=== PATIENT | male | born 1975 | race Caucasian/White ===

== ENCOUNTER → 2020-07-11 09:21 | Outpatient (BNVA) | payer MEDICAID, SELFPAY | PROVIDERS: Visit Provider Nurse Practitioner | DX: F10.10 Alcohol abuse, uncomplicated (principal); K74.00 Hepatic fibrosis, unspecified | CPT/HCPCS: 99202 ==

== ENCOUNTER 2020-07-31 | Outpatient (REF) | payer MEDICAID, SELFPAY | END 2020-07-31 00:01 | LOC: CF | PROVIDERS: Visit Provider Nurse Practitioner Family | DX: K74.00 Hepatic fibrosis, unspecified (principal); M47.816 Spondylosis without myelopathy or radiculopathy, lumbar region; M16.0 Bilateral primary osteoarthritis of hip | CPT/HCPCS: 99202 ==

== ENCOUNTER 2020-08-02 09:01 | Outpatient (REF) | payer MEDICAID, SELFPAY ==
--- NOTE | 2020-08-02 11:20 | XR_ITS ---
EXAMINATION: XR BILATERAL HIPS WITH AP PELVIS CLINICAL INFORMATION: M16.0 - Bilateral primary osteoarthritis of hip COMPARISON: MR lumbar spine 02/01/2019 TECHNIQUE: AP view pelvis is performed. Each hip is imaged in AP and frog-lateral projections. There are a total of 5 views. FINDINGS: The pelvis and hip show no fracture dislocation or destructive process. There is no focal hip joint narrowing or erosive change or chondrocalcinosis. Soft tissue planes around the hips are symmetric. Bowel gas unremarkable. The SI joints and pubis are unremarkable. XR/XR hips JOSÉ LUIS min 3V IMPRESSION: Unremarkable pelvis and hips.
== END 2020-08-02 09:02 | disposition home or self-care (01) ==
LOC: HO.XRAY 09:01
PROVIDERS: PCP Internal Medicine; Visit Provider Orthopaedic Surgery
DX: M16.0 Bilateral primary osteoarthritis of hip (principal)
CPT/HCPCS: 73522; 99202

== ENCOUNTER 2020-08-31 11:27 | Outpatient (REF) | payer MEDICAID, SELFPAY ==
[2020-08-31 12:03] LABS: MANUAL DIFF FLAG NO
[2020-08-31 12:10] LABS: Basophils Absolute Auto 0.1 X10*3/uL (0.0-0.2); Basophils Percent Auto 0.8 % (0-2); Eosinophils Absolute Auto 0.1 X10*3/uL (0.0-0.4); Eosinophils Percent Auto 1.6 % (0-4); Hematocrit 48.8 % (42-52); Hemoglobin 16.4 g/dl (14.0-18.0); Imm Gran Abs Auto 0.02 X10*3/uL (0.00-0.03); Imm Gran Pct Auto 0.3 % (0.0-0.4); Lymphocytes Absolute Auto 1.9 X10*3/uL (1.2-4.9); Lymphocytes Percent Auto 29.9 % (20-40); Mean Corpuscular HGB Conc 33.6 g/dl (31.0-36.0); Mean Corpuscular Hemoglobin 30.3 pg (27.0-33.0); Mean Corpuscular Volume 90.2 fL (80-98); Mean Platelet Volume 9.8 fL (9.4-12.4); Monocytes Absolute Auto 0.6 X10*3/uL (0.1-1.2); Monocytes Percent Auto 9.5 % (2-11); Neutrophils Absolute Auto 3.6 X10*3/uL (2.0-8.3); Neutrophils Percent Auto 57.9 % (45-73); Platelet Count 226 X10*3/uL (160-400); Red Blood Count 5.41 X10*6/uL (4.60-5.80); Red Cell Distribution Width 12.8 % (11.0-16.0); White Blood Count 6.2 X10*3/uL (4.8-10.8)
[2020-08-31 12:38] LABS: Alanine Aminotransferase 58 U/L (0-40); Albumin Level 4.5 g/dL (3.5-5.0); Alkaline Phosphatase 98 U/L (39-117); Aspartate Amino Transferase 48 U/L (5-37); Bilirubin Direct 0.4 mg/dL (0.0-0.5); Bilirubin Total 0.8 mg/dL (0.0-1.0); Gamma Glutamyl Transpeptidase 326 U/L (11-51); Total Protein 7.5 g/dL (6.5-8.0)
[2020-08-31 12:59] LABS: Ferritin 233 ng/mL (20-250)
[2020-09-01 11:47] LABS: Alpha Fetoprotein 4.2 ng/mL (<6.1)
[2020-09-04 15:13] LABS: Mitochondrial Antibodies NEGATIVE (NEGATIVE)
[2020-09-05 13:07] LABS: Smooth Muscle Antibody <20 U (<20)
== END 2020-08-31 11:28 | disposition home or self-care (01) ==
LOC: HO.LAB 11:27
PROVIDERS: PCP Internal Medicine; Visit Provider Nurse Practitioner
DX: F10.10 Alcohol abuse, uncomplicated (principal); K74.00 Hepatic fibrosis, unspecified
CPT/HCPCS: 36415; 80076; 82105; 82728; 82977; 85025; 86255; 86256

== ENCOUNTER 2020-09-04 08:49 | Outpatient (REF) | payer MEDICAID, SELFPAY ==
--- NOTE | 2020-09-04 08:51 | US_ITS ---
EXAMINATION: US ABDOMEN LIMITED CLINICAL INFORMATION: Hepatic fibrosis. COMPARISON: Abdominal ultrasounds dated 07/23/2019 and 07/07/2019 TECHNIQUE: Real-time imaging of the right upper quadrant abdominal viscera. FINDINGS: PANCREAS: The pancreas is homogeneous echotexture and normal size. LIVER: The liver is normal in size. The liver contour is normal. There is diffuse increased liver echogenicity. No focal hepatic lesion. There is no intrahepatic biliary duct dilatation seen. GALLBLADDER: Normal. The gallbladder is physiologically distended without evidence of stones, sludge, polyps, wall thickening or pericholecystic fluid. COMMON BILE DUCT: Normal in caliber measuring 0.4 cm in diameter. RIGHT KIDNEY: No hydronephrosis. No renal calculi or focal parenchymal lesions. The kidney measures 10.5 cm in maximum dimension. There are multiple echogenic non shadowing foci are seen likely vascular calcifications. FREE FLUID: None US/US abdomen limited IMPRESSION: Diffuse increase in hepatic echogenicity likely fatty infiltration. Similar findings were seen on the previous ultrasound 07/25/2019. Pancreas, gallbladder and series unremarkable. There are echogenic calcifications, likely vascular seen scattered in the right kidney.
== END 2020-09-04 08:50 | disposition home or self-care (01) ==
LOC: HO.US 08:49
PROVIDERS: Visit Provider Nurse Practitioner
DX: K74.00 Hepatic fibrosis, unspecified (principal); F10.10 Alcohol abuse, uncomplicated
CPT/HCPCS: 76705

== ENCOUNTER → 2020-09-11 15:32 | Outpatient (BNVA) | payer MEDICAID, SELFPAY | PROVIDERS: PCP Internal Medicine; Referring Provider Internal Medicine; Visit Provider Nurse Practitioner ==

== ENCOUNTER → 2020-09-15 12:48 | Outpatient (BNVA) | payer MEDICAID, SELFPAY | PROVIDERS: PCP Internal Medicine; Visit Provider Nurse Practitioner Family | DX: M77.8 Other enthesopathies, not elsewhere classified (principal) | CPT/HCPCS: 99212 ==

== ENCOUNTER → 2020-12-12 09:31 | Outpatient (BNVA) | payer MEDICAID, SELFPAY | PROVIDERS: Visit Provider Nurse Practitioner ==

== ENCOUNTER 2021-11-16 12:38 | Outpatient (REF) | payer MEDICAID, SELFPAY ==
--- NOTE | ~2021-11-16 | US_ITS ---
EXAMINATION: US ABDOMEN COMPLETE CLINICAL INFORMATION: Hepatic fibrosis, unspecified. COMPARISON: Ultrasound abdomen limited 09/04/2020 and 07/23/2019. TECHNIQUE: Real-time imaging of the abdominal viscera. FINDINGS: PANCREAS: Not well visualized due to bowel gas ABDOMINAL AORTA: The proximal, mid, and distal segments are normal in caliber. INFERIOR VENA CAVA: Visualized portions are normal. LIVER: The liver is normal in size. The liver contour is normal. Liver echotexture is increased. No focal hepatic lesion. There is no intrahepatic biliary duct dilatation seen. GALLBLADDER: Normal. The gallbladder is physiologically distended without evidence of stones, sludge, polyps, wall thickening or pericholecystic fluid. COMMON BILE DUCT: Normal in caliber measuring 0.2 cm in diameter. RIGHT KIDNEY: Normal. No hydronephrosis. No renal calculi or focal parenchymal lesions. The kidney measures 10.7 cm in maximum dimension. LEFT KIDNEY: Normal. No hydronephrosis. No renal calculi or focal parenchymal lesions. The kidney measures 11.0 cm in maximum dimension. SPLEEN: Normal. The spleen measures 11.5 cm in maximum dimension. FREE FLUID: None. US/US abdomen complete IMPRESSION: Echogenic liver. Limited visualization of the pancreas.
== END 2021-11-16 12:39 | disposition home or self-care (01) ==
LOC: HO.US 12:38
PROVIDERS: Visit Provider Nurse Practitioner
DX: K74.00 Hepatic fibrosis, unspecified (principal); F10.10 Alcohol abuse, uncomplicated
CPT/HCPCS: 76700

== ENCOUNTER → 2021-12-10 12:41 | Outpatient (REF) | payer MEDICAID, SELFPAY ==
--- NOTE | 2021-12-10 12:45 | ECG_ITS ---
Hook-up date: 2021-12-10 12:03:00 Duration: 24:51:00 Test Indications: PALPITATIONS Medications: [id number] QRS complexes 177 Ventricular ectopics which represent <1 % of total QRS comp. 7 Supraventricular ectopics which represent <1 % of total QRS comp. * Paced QRS complexs which represent % of total QRS comp. VENTRICULAR ECTOPY 177 Isolated 0 Bigeminal Cycles 0 Couplets 0 Runs 0 Beats in Runs * Beats LONGEST at * BPM at :: -- * Beats FASTEST at * BPM at :: -- SUPRAVENTRICULAR ECTOPY 7 Isolated 0 Couplets 0 Runs 0 Beats in Runs * Beats LONGEST at * BPM at :: -- * Beats FASTEST at * BPM at :: -- HEART RATES 60 MIN at 00:25:05 2021-12-11 85 AVG 133 MAX at 18:45:25 2021-12-10 LONGEST RR 1.1680 secs at 04:02:57 2021-12-11 S-T LEVELS Channel 1 - 128 mm at 12:03:00 2021-12-10 - 128 mm at 12:03:00 2021-12-10 Channel 2 - 128 mm at 12:03:00 2021-12-10 - 128 mm at 12:03:00 2021-12-10 Channel 3 - 128 mm at 03:12:21 -- - 128 mm at 03:12:21 Underlying rhythm is sinus; Average ventricular rate 85/min; 60-133/min; Rare Premature ventricular complexes ; isolated; No sustained arrhythmias; Patient did not report any symptoms in the diary Referred By: Gris Pang Overread By: MIC DE LA CRUZ
== END ==
LOC: HO.CARD 12:41
PROVIDERS: Visit Provider Nurse Practitioner Primary Care
DX: R00.2 Palpitations (principal)
CPT/HCPCS: 93226

== ENCOUNTER 2021-12-21 08:49 | Outpatient (REF) | payer MEDICAID, SELFPAY ==
[2021-12-21 10:45] LABS: MANUAL DIFF FLAG NO
[2021-12-21 10:57] LABS: Basophils Absolute Auto 0.1 X10*3/uL (0.0-0.2); Basophils Percent Auto 1.1 % (0-2); Eosinophils Absolute Auto 0.1 X10*3/uL (0.0-0.4); Eosinophils Percent Auto 1.5 % (0-4); Hematocrit 48.5 % (42.0-52.0); Hemoglobin 16.3 g/dl (14.0-18.0); Imm Gran Abs Auto 0.03 X10*3/uL (0.00-0.03); Imm Gran Pct Auto 0.5 % (0.0-0.4); Lymphocytes Absolute Auto 1.7 X10*3/uL (1.2-4.9); Lymphocytes Percent Auto 27.4 % (20-40); Mean Corpuscular HGB Conc 33.6 g/dl (31.0-36.0); Mean Corpuscular Hemoglobin 29.3 pg (27.0-33.0); Mean Corpuscular Volume 87.2 fL (80.0-98.0); Mean Platelet Volume 9.6 fL (9.4-12.4); Monocytes Absolute Auto 0.6 X10*3/uL (0.1-1.2); Monocytes Percent Auto 9.8 % (2-11); Neutrophils Absolute Auto 3.7 x10*3/uL (2.0-8.3); Neutrophils Percent Auto 59.7 % (45-73); Platelet Count 268 X10*3/uL (160-400); Red Blood Count 5.56 X10*6/uL (4.60-5.80); White Blood Count 6.1 X10*3/uL (4.8-10.8)
[2021-12-21 11:18] LABS: C Reactive Protein 1.32 mg/dL (< or = 0.50)
[2021-12-21 11:42] LABS: TSH reflex Free T4 0.83 uIU/mL (0.32-4.0)
[2021-12-25 23:02] LABS: Gliadin Deamidated IgA Ab <1.0 U/mL; Gliadin Deamidated IgG Ab <1.0 U/mL; Transglutaminase Ab IgG <1.0 U/mL; Transglutaminase IgA <1.0 U/mL
[2021-12-26 11:10] LABS: Alpha Fetoprotein 3.9 ng/mL (<6.1)
== END 2021-12-21 08:50 | disposition home or self-care (01) ==
LOC: HO.LAB 08:49
PROVIDERS: PCP Nurse Practitioner Primary Care; Referring Provider Nurse Practitioner Primary Care; Visit Provider Nurse Practitioner
DX: K74.00 Hepatic fibrosis, unspecified (principal); R19.7 Diarrhea, unspecified; R10.12 Left upper quadrant pain; I10 Essential (primary) hypertension
CPT/HCPCS: 36415; 82105; 84443; 85025; 86003; 86140; 86258; 86364; 99212

== ENCOUNTER 2022-01-01 11:16 | Outpatient (REF) | payer MEDICAID, SELFPAY ==
[2022-01-09 15:40] LABS: Pancreatic Elastase-1 27 mcg/g
== END 2022-01-01 11:17 | disposition home or self-care (01) ==
LOC: HO.LNP 11:16
PROVIDERS: Visit Provider Nurse Practitioner
DX: R19.7 Diarrhea, unspecified (principal)
CPT/HCPCS: 82656

== ENCOUNTER → 2022-01-18 09:06 | Outpatient (BNVA) | payer MEDICAID, SELFPAY | PROVIDERS: PCP Nurse Practitioner Primary Care; Visit Provider Nurse Practitioner | DX: K86.89 Other specified diseases of pancreas (principal); F10.10 Alcohol abuse, uncomplicated; R19.7 Diarrhea, unspecified; K74.00 Hepatic fibrosis, unspecified; K21.9 Gastro-esophageal reflux disease without esophagitis | CPT/HCPCS: 99212 ==

== ENCOUNTER → 2022-03-12 08:49 | Outpatient (BNVA) | payer MEDICAID, SELFPAY | PROVIDERS: PCP Nurse Practitioner Primary Care; Referring Provider Nurse Practitioner Primary Care; Visit Provider Internal Medicine | DX: I49.3 Ventricular premature depolarization (principal); I10 Essential (primary) hypertension; F10.10 Alcohol abuse, uncomplicated | CPT/HCPCS: 93005; 99202 ==

== ENCOUNTER 2022-10-17 08:16 | Outpatient (REF) | payer MEDICAID, SELFPAY ==
--- NOTE | ~2022-10-17 | XR_ITS ---
EXAMINATION: XR SHOULDER, RIGHT CLINICAL INFORMATION: Adhesive capsulitis. COMPARISON: None TECHNIQUE: AP external rotation, Grashey, scapular Y, and axillary views of the right shoulder. FINDINGS: The bones and soft tissues are normal. No fracture. Glenohumeral and acromioclavicular alignment is anatomic with normal joint space. No abnormal soft tissue calcifications. XR/XR shoulder RT min 2V IMPRESSION: Normal right shoulder.
== END 2022-10-17 08:17 | disposition home or self-care (01) ==
LOC: HO.XRAY 08:16
PROVIDERS: PCP Nurse Practitioner Primary Care; Visit Provider Student in an Organized Health Care Education/Training Program
DX: M75.01 Adhesive capsulitis of right shoulder (principal)
CPT/HCPCS: 73030

== ENCOUNTER 2023-03-26 12:32 | Outpatient (AMB) | payer MEDICAID, SELFPAY ==
[2023-03-26 12:36] VITALS: BP 143/73; PULSE 80; BMI 35.6
--- NOTE | 2023-03-26 12:36 | MHC.OFFVIS ---
Intake Vital Signs 03/26/23 12:36 Height 5 ft 2 in Weight 194 lb 14.218 oz BMI 35.6 BP 143/73 H Blood Pressure Location Rt brachial Position Sitting Pulse 80 Intake Visit Reasons: follow req Intake Note: Patient presents to in office visit today in medications follow up. CC: Patient c/o heartburn and states he wanted to follow up with GI. Cable Tower Operator Required: Yes Cable Tower Operator Name: Tone [id number] Accompanied by: Self / Same As Patient Allergies No Known Allergies Allergy (Verified 03/12/22 09:09) HPI follow req HPI Details Assessment & Plan (1) Pancreatic insufficiency: ?Code(s): K86.89 - Other specified diseases of pancreas ?Plan: COSTA RICAN #[id number] saroj I review all of the results and tell him that he appears to have exocrine pancreatic insufficiency.? I explained that this means is pancreas isn't making enough of the enzymes to digest is food appropriately and this is contributing to his bloating gas and diarrhea.? I will put him on a trial of Creon and I described to him how to take this medication and wanted stool or.? Happily, he has also had some good control of his symptoms with the dicyclomine which we will continue to provide for him although he may find that he leak needs it less often with use of the Creon.? He did have an elevated CRP but unless he has control becomes questionable is profile does not fit well with a diagnosis of inflammatory bowel disease.? He has no weight loss and no severe bleeding or rectal pain.? It also would be very uncommon for IBD to be well controlled utilizing dicyclomine.? He certainly does not have any significant food allergies. ROV 8 weeks (2) Liver fibrosis: ?Comment: Hemoglobin A1c 5.4 Hepatitis A IgM Ab NONREACTIVE Hep Bs Antigen NEGATIVE Hep Bs Antibody NONREACTIVE Hep B Core Total Ab NONREACTIVE Hepatitis C Ab (EIA) NONREACTIVE 07/09/19 Est GFR (Non-Af Amer) > 60 Liver Fibrosis Stage F0 Tumor Marker AFP 3.5 Ferritin 233 Total Bilirubin 0.8 Direct Bilirubin 0.4 GGT 326 H AST 48 H ALT 58 H Alkaline Phosphatase 98 Alpha Fetoprotein 4.2 Anti-Mitochondrial Ab NEGATIVE * 08/31/20 Plt Count 226 Est GFR (Non-Af Amer) Hemoglobin A1c Ferritin 233 Total Bilirubin 0.8 Direct Bilirubin 0.4 GGT 326 H AST 48 H ALT 58 H Alkaline Phosphatase 98 Alpha Fetoprotein 4.2 Anti-Mitochondrial Ab NEGATIVE ULTRASOUND OF THE ABDOMEN 08/2020 IMPRESSION: Diffuse increase in hepatic echogenicity likely fatty infiltration. Similar findings were seen on the previous ultrasound 07/25/2019. ? Pancreas, gallbladder and series unremarkable. ? There are echogenic calcifications, likely vascular seen scattered in the right kidney. ?Code(s): K74.00 - Hepatic fibrosis, unspecified (3) ETOH abuse: ?Code(s): F10.10 - Alcohol abuse, uncomplicated (4) Diarrhea: ?Code(s): R19.7 - Diarrhea, unspecified (5) GERD (gastroesophageal reflux disease): ?Code(s): K21.9 - Gastro-esophageal reflux disease without esophagitis ? ? ? Medications: New ehtazn-jqwnpsbg-xr ylase 40,000-126,0 00- 168,000 unit ( [facility]) ?? adminis ter with meals and /or snacks 1 cap PO .QIDAC 1 20 caps 6RF K86.89 - Other spe cified diseases of pancreas, R19.7 - Diarrhea, unspeci fied ? Refilled dicyclomine 20 mg PO QIDACHS 120 tabs 6RF 30 da ys R19.7 - Diarrhea, unspecified ? omeprazole 40 mg PO BID 60 c aps 3RF 30 days ? TODAY'S VISIT COSTA RICAN #[id number], Tone He received the Creon and he has found it very helpful for his stooling. He also has decreased the use of the bentyl as I expected. He also continues on her omeprazole 40mg bid with good GERD control. He is now satisfied with his GI regimen. He asks me to do another MRI for my liver. We have not looked at or monitored his liver since 2020, as [facility] usually does all their own in house liver monitoring. I will get labs and an US to start as he says his PCP is not doing this. He has a hx of ETOH abuse, and I ask if he is still drinking and he says he is, but he has cut back from 18 beers a day to 6 a day. He likely has a comorbid element of TIMMONS as well. ROV after US ordered today. [facility] Medical History Hypertension Surgical History H/O colonoscopy History of esophagogastroduodenoscopy (EGD) Family History Father Heart problem Stroke HTN (hypertension) Mother HTN (hypertension) Arthritis Social History Alcohol intake: current Alcohol intake frequency: 3 or more drinks per day Alcohol type: beer Current occupational status: employed and unemployed Current occupation: right handed Review of Systems Const Denies fatigue, Denies fever(s), Denies night sweats, Denies poor appetite and Denies weight loss Eyes Details: glasses Reports requires corrective lenses ENT Reports Normal hearing present, Denies dental pain, Denies dysphagia, Denies hearing loss, Denies mouth pain, Denies odynophagia, Denies throat swelling, Denies tongue swelling and Reports other (Dentition adequate) Card Reports no additional complaints Resp Reports no additional complaints GI Denies abdominal pain, Denies melena, Reports bloating, Denies hematochezia, Denies constipation, Denies GI cramping, Denies dysphagia, Denies excessive flatus, Denies early satiety, Reports heartburn, Reports diarrhea, Denies nausea, Denies odynophagia, Denies vomiting and Denies hematemesis Skin/Breast Denies pruritus, Denies lesions, Denies rash and Denies jaundice Neuro Reports Normal hearing present and Denies Abnormal speech present Endo Denies fatigue Aller/Immun Denies throat swelling and Denies tongue swelling Physical Exam Vital Signs: Last Vital Signs Pulse 80 03/26/23 12:36 BP 143/73 H 03/26/23 12:36 BMI result Body Mass Index 35.6 Const General: cooperative, no acute distress, well developed and well groomed Nutritional Appearance: well nourished and obese centrally obese Orientation/consciousness: oriented to person, oriented to place and oriented to time Limitations: language barrier HEENT Head: Yes normocephalic and Yes atraumatic Eyes General: appearance normal, both eyes and all related structures Pupils: Equal, round and reactive pupils present Neck Neck: Yes normal visual inspection and Yes no lymphadenopathy Thyroid: Thyroid normal Resp Effort & Inspection: normal respiratory effort and able to speak in complete sentences Auscultation: clear to auscultation bilaterally Cardio Rate: regular rate Rhythm: regular rhythm Heart sounds: Normal, physiologic split S2 sound present Peripheral pulses: radial pulses present and posterior tibial pulses present GI Inspection: No distended, No Abdominal panniculus present and Yes obesity Palpation (GI): Soft to palpation, nontender, no guarding, not rigid and No hepatosplenomegaly present Percussion: Yes normal to percussion Auscultation: normal bowel sounds Rectal Exam - Male: Yes deferred Skin General skin exam: no rashes or lesions noted, turgor normal, skin not dry, no jaundice, No spider nevi and no striae Rashes: no rashes Nails: normal Neuro General: oriented to person, oriented to place and oriented to time Cranial nerves: Yes Equal, round and reactive pupils present and Yes Normal hearing present Speech: No Abnormal speech present Extrem General: Yes normal to inspection, No clubbing, No cyanosis and No edema Psych Appearance: grossly normal and well kempt Mental Status: mental status grossly normal Speech and movement: Normal speech and movement present Affect: normal affect Attitude: cooperative Thought process: Normal thought process present and not confabulating Thought content: Normal thought content present Insight: Limited insight present (Psych) Judgement: Limited judgement present (Psych) Assessment & Plan Assessment & Plan (1) Pancreatic insufficiency: Code(s): K86.89 - Other specified diseases of pancreas Plan: CO[place] RICAN #[id number], Tone He received the Creon and he has found it very helpful for his stooling. He also has decreased the use of the bentyl as I expected. He also continues on her omeprazole 40mg bid with good GERD control. He is now satisfied with his GI regimen. He asks me to do another MRI for my liver. We have not looked at or monitored his liver since 2020, as [facility] usually does all their own in house liver monitoring. I will get labs and an US to start as he says his PCP is not doing this. He has a hx of ETOH abuse, and I ask if he is still drinking and he says he is, but he has cut back from 18 beers a day to 6 a day. He likely has a comorbid element of TIMMONS as well. ROV after US ordered today. (2) GERD (gastroesophageal reflux disease): Code(s): K21.9 - Gastro-esophageal reflux disease without esophagitis (3) Diarrhea: Code(s): R19.7 - Diarrhea, unspecified (4) Liver fibrosis: Comment: Hemoglobin A1c 5.4 Hepatitis A IgM Ab NONREACTIVE Hep Bs Antigen NEGATIVE Hep Bs Antibody NONREACTIVE Hep B Core Total Ab NONREACTIVE Hepatitis C Ab (EIA) NONREACTIVE * 07/09/19 Est GFR (Non-Af Amer) > 60 Liver Fibrosis Stage F0 Tumor Marker AFP 3.5 * 08/31/20 Plt Count 226 Est GFR (Non-Af Amer) Hemoglobin A1c Ferritin 233 Total Bilirubin 0.8 Direct Bilirubin 0.4 GGT 326 H AST 48 H ALT 58 H Alkaline Phosphatase 98 Alpha Fetoprotein 4.2 Anti-Mitochondrial Ab NEGATIVE ULTRASOUND OF THE ABDOMEN 08/2020 IMPRESSION: Diffuse increase in hepatic echogenicity likely fatty infiltration. Similar findings were seen on the previous ultrasound 07/25/2019. Pancreas, gallbladder and series unremarkable. There are echogenic calcifications, likely vascular seen scattered in the right kidney. Code(s): K74.00 - Hepatic fibrosis, unspecified (5) ETOH abuse: Code(s): F10.10 - Alcohol abuse, uncomplicated Orders: Orders Alpha Fetoprotein Today F10.10 - Alcohol abuse, uncomplicated, K74.00 - Hepatic fibrosis, unspecified Comprehensive Met. Panel Today F10.10 - Alcohol abuse, uncomplicated, K74.00 - Hepatic fibrosis, unspecified Gamma Glutamyl Transpeptidase Today F10.10 - Alcohol abuse, uncomplicated, K74.00 - Hepatic fibrosis, unspecified Complete Blood Count Auto Diff Today F10.10 - Alcohol abuse, uncomplicated, K74.00 - Hepatic fibrosis, unspecified Phosphatidylethanol, Blood Today F10.10 - Alcohol abuse, uncomplicated, K74.00 - Hepatic fibrosis, unspecified US abdomen comp w elastography Today F10.10 - Alcohol abuse, uncomplicated, K74.00 - Hepatic fibrosis, unspecified Coding Level of Care Code Est Pt Level 4 (71693) Diagnoses Pancreatic insufficiency K86.89 GERD (gastroesophageal reflux disease) K21.9 Diarrhea R19.7 Liver fibrosis K74.00 ETOH abuse F10.10
== END 2023-03-26 13:59 | disposition home or self-care (01) ==
PROVIDERS: PCP Nurse Practitioner Primary Care; Visit Provider Nurse Practitioner
DX: K86.89 Other specified diseases of pancreas (principal); K21.9 Gastro-esophageal reflux disease without esophagitis; R19.7 Diarrhea, unspecified; K74.00 Hepatic fibrosis, unspecified; F10.10 Alcohol abuse, uncomplicated
CPT/HCPCS: 99214

== ENCOUNTER → 2023-03-26 12:32 | Outpatient (BNVA) | payer MEDICAID, SELFPAY | PROVIDERS: PCP Nurse Practitioner Primary Care; Visit Provider Nurse Practitioner | DX: K86.89 Other specified diseases of pancreas (principal); K21.9 Gastro-esophageal reflux disease without esophagitis; K74.00 Hepatic fibrosis, unspecified; R19.7 Diarrhea, unspecified; F10.10 Alcohol abuse, uncomplicated | CPT/HCPCS: 99214 ==

== ENCOUNTER 2023-04-12 09:15 | Outpatient (REF) | payer MEDICAID, SELFPAY ==
[2023-04-12 09:28] LABS: MANUAL DIFF FLAG NO
[2023-04-12 09:50] LABS: Basophils Percent Auto 0.6 % (0-2); Eosinophils Absolute Auto 0.1 X10*3/uL (0.0-0.4); Eosinophils Percent Auto 1.3 % (0-4); Hematocrit 44.6 % (42.0-52.0); Hemoglobin 15.2 g/dl (14.0-18.0); Imm Gran Abs Auto 0.02 X10*3/uL (0.00-0.03); Imm Gran Pct Auto 0.4 % (0.0-0.4); Lymphocytes Absolute Auto 1.7 X10*3/uL (1.2-4.9); Lymphocytes Percent Auto 35.1 % (20-40); Mean Corpuscular HGB Conc 34.1 g/dl (31.0-36.0); Mean Corpuscular Hemoglobin 29.6 pg (27.0-33.0); Mean Corpuscular Volume 86.9 fL (80.0-98.0); Mean Platelet Volume 9.5 fL (9.4-12.4); Monocytes Absolute Auto 0.4 X10*3/uL (0.1-1.2); Monocytes Percent Auto 9.1 % (2-11); Neutrophils Absolute Auto 2.5 x10*3/uL (2.0-8.3); Neutrophils Percent Auto 53.5 % (45-73); Platelet Count 229 X10*3/uL (160-400); Red Blood Count 5.13 X10*6/uL (4.60-5.80); Red Cell Distribution Width 13.1 % (11.0-16.0); White Blood Count 4.7 X10*3/uL (4.8-10.8)
[2023-04-12 10:27] LABS: Alanine Aminotransferase 40 U/L (0-40); Albumin Level 4.1 g/dL (3.5-5.0); Alkaline Phosphatase 104 U/L (39-117); Anion Gap 17 (12-20); Aspartate Amino Transferase 47 U/L (5-37); Bilirubin Total 0.3 mg/dL (0.0-1.0); Blood Urea Nitrogen 8 mg/dL (9-16); Calcium 9.1 mg/dL (8.4-10.2); Carbon Dioxide 21 mmol/L (22-29); Chloride 105 mmol/L (96-108); Estimated Glomerular Filt Rate > 60; Glucose Random 104 mg/dL (60-115); Potassium 3.6 mmol/L (3.3-5.1); Sodium 139 mmol/L (135-145); Total Protein 7.5 g/dL (6.5-8.0)
[2023-04-12 11:01] LABS: Gamma Glutamyl Transpeptidase 407 U/L (11-51)
[2023-04-21 08:31] LABS: Phosphatidylethanol 16:0-18:1 >400 (H); Phosphatidylethanol 16:0-18:2 >400 (H)
== END 2023-04-12 09:16 | disposition home or self-care (01) ==
LOC: HO.LAB 09:15
PROVIDERS: Visit Provider Nurse Practitioner
DX: K74.00 Hepatic fibrosis, unspecified (principal); F10.10 Alcohol abuse, uncomplicated
CPT/HCPCS: 36415; 80053; 80321; 82105; 82977; 85025

== ENCOUNTER 2023-05-22 07:48 | Outpatient (REF) | payer MEDICAID, SELFPAY ==
--- NOTE | ~2023-05-22 | US_ITS ---
EXAMINATION: US COMPLETE ABDOMEN WITH LIVER ELASTOGRAPHY CLINICAL INFORMATION: Hepatic fibrosis COMPARISON: Previous abdominal ultrasound November 2021 TECHNIQUE: Real-time imaging of the abdominal viscera. Noninvasive ultrasound liver fibrosis assessment is performed using Shreyas ElastPQ point quantification shear wave elastography (2D-SWE) with a C5-2 MHz transducer. Multiple elastography samples are obtained. FINDINGS: PANCREAS: Normal. ABDOMINAL AORTA: The distal abdominal aorta is normal in caliber. Proximal and mid portions are not well visualized. INFERIOR VENA CAVA: Visualized portions are normal. LIVER: Liver echotexture is increased. The liver demonstrates normal size, and contour. No focal lesion or intrahepatic biliary duct dilatation. The right lobe measures 15 cm in length. The left lobe measures 10 cm in length. Portal flow is normal/hepatopedal Shear wave liver elastography median stiffness is 1.6 m/s (reference: normal median stiffness is 1.3 m/s or less). IQR/median stiffness to assess sampling precision is 0.3 (reference: good quality data set is IQR/median stiffness of 0.15 or less). GALLBLADDER: Normal. The gallbladder is physiologically distended without evidence of stones, sludge, polyps, wall thickening or pericholecystic fluid. COMMON BILE DUCT: Normal in caliber measuring 0.4 cm in diameter. RIGHT KIDNEY: Normal. No hydronephrosis. No renal calculi or focal parenchymal lesions. The kidney measures 10.6 cm in maximum dimension. LEFT KIDNEY: Normal. No hydronephrosis. No renal calculi or focal parenchymal lesions. The kidney measures 10.5 cm in maximum dimension. SPLEEN: Normal. The spleen measures 11 cm in maximum dimension. FREE FLUID: None. US/US abdomen comp w elastography IMPRESSION: 1. Impression: Echogenic liver. Liver is normal in size and contour. Limited visualization of the aorta. 2. Liver elastography: Limited due to sampling error. REFERENCE: Society of Radiologists in Ultrasound Liver Stiffness Thresholds (2020): LIVER STIFFNESS THRESHOLDS: *Liver Stiffness equal or less than 1.3 m/s: High probability of being normal. *Liver Stiffness less than 1.7 m/s: In the absence of other known clinical signs, rules out compensated advanced chronic liver disease. *Liver Stiffness 1.7-2.1 m/s: Suggestive of compensated advanced chronic liver disease but need further test for confirmation. *Liver Stiffness over 2.1 m/s: Rules in compensated advanced chronic liver disease. *Liver Stiffness over 2.4 m/s: Suggestive of clinically significant portal hypertension. QUALITY OF DATA SET: *IQR/Median value equal or less than 0.15 implies a quality data set. *IQR/Median value over 0.15 implies a poor quality data set. SIGNIFICANT CHANGE FROM PRIOR EXAM: Significant change if liver stiffness measurement is 10% or greater from prior exam. OTHER CONSIDERATIONS: The stage of liver fibrosis may be overestimated in the setting of acute hepatitis, liver inflammation, elevated liver function tests, hepatic vascular congestion, obstructive cholestasis, non-fasting state, and infiltrative diseases such as amyloidosis and lymphoma. In some patients with NAFLD, the liver stiffness thresholds for compensated advanced chronic liver disease may be lower. In causes other than viral hepatitis and NAFLD, liver stiffness thresholds are not well established.
== END 2023-05-22 07:49 | disposition home or self-care (01) ==
LOC: HO.US 07:48
PROVIDERS: PCP Nurse Practitioner Primary Care; Visit Provider Nurse Practitioner
DX: K74.00 Hepatic fibrosis, unspecified (principal); F10.10 Alcohol abuse, uncomplicated
CPT/HCPCS: 76705; 76981

== ENCOUNTER 2023-06-03 07:55 | Outpatient (AMB) | payer MEDICAID, SELFPAY ==
[2023-06-03 08:05] VITALS: BP 153/78; PULSE 88; O2SAT 97; BMI 36.8
--- NOTE | 2023-06-03 08:05 | A.OFFVIS_ITS ---
Intake Vital Signs 06/03/23 08:05 Height 5 ft 2 in Weight 201 lb 0.985 oz BMI 36.8 BP 153/78 H Blood Pressure Location Rt brachial Position Sitting Pulse 88 Pulse Source Pulse Oximeter Pulse Oximetry (%) 97 Oxygen Delivery Method Room Air Intake Visit Reasons: U/S F/U Intake Note: Pt presents to the office today for a u/s follow up. Pt states he is overall feeling well and denies any GI concerns. Allergies No Known Allergies Allergy (Verified 06/03/23 08:07) HPI U/S F/U HPI Details Assessment & Plan (1) Pancreatic insufficiency: Code(s): K86.89 - Other specified diseases of pancreas Plan: SWISS #[id number], Tone He received the Creon and he has found it very helpful for his stooling. He also has decreased the use of the bentyl as I expected. He also continues on her omeprazole 40mg bid with good GERD control. He is now satisfied with his GI regimen. He asks me to do another MRI for my liver. We have not looked at or monitored his liver since 2020, as [facility] usually does all their own in house liver monitoring. I will get labs and an US to start as he says his PCP is not doing this. He has a hx of ETOH abuse, and I ask if he is still drinking and he says he is, but he has cut back from 18 beers a day to 6 a day. He likely has a comorbid element of TIMMONS as well. ROV after US ordered today. (2) GERD (gastroesophageal reflux diseas e): Code(s): K21.9 - Gastro-esophageal reflux disease without esophagitis (3) Diarrhea: Code(s): R19.7 - Diarrhea, unspecified (4) Liver fibrosis: Comment: Hemoglobin A1c 5.4 Hepatitis A IgM Ab NONREACTIVE Hep Bs Antigen NEGATIVE Hep Bs Antibody NONREACTIVE Hep B Core Total Ab NONREACTIVE Hepatitis C Ab (EIA) NONREACTIVE * 07/09/19 Est GFR (Non-Af Amer) > 60 Liver Fibrosis Stage F0 Tumor Marker AFP 3.5 * 08/31/20 Plt Count 226 Est GFR (Non-Af Amer) Hemoglobin A1c Ferritin 233 Total Bilirubin 0.8 Direct Bilirubin 0.4 GGT 326 H AST 48 H ALT 58 H Alkaline Phosphatase 98 Alpha Fetoprotein 4.2 Anti-Mitochondrial Ab NEGATIVE ULTRASOUND OF THE ABDOMEN 08/2020 IMPRESSION: Diffuse increase in hepatic echogenicity likely fatty infiltration. Similar findings were seen on the previous ultrasound 07/25/2019. Pancreas, gallbladder and series unremarkable. There are echogenic calcifications, likely vascular seen scattered in the right kidney. Code(s): K74.00 - Hepatic fibrosis, unspecified (5) ETOH abuse: Code(s): F10.10 - Alcohol abuse, uncomplicated Orders: Orders Alpha Fetoprotein Today F10.10 - Alcohol a buse, uncomplicate d, K74.00 - Hepati c fibrosis, unspec ified Comprehensive Met. Panel Today F10.10 - Alcohol a buse, uncomplicate d, K74.00 - Hepati c fibrosis, unspec ified Gamma Glutamyl Tra nspeptidase Today F10.10 - Alcohol a buse, uncomplicate d, K74.00 - Hepati c fibrosis, unspec ified Complete Blood Cou nt Auto Diff Today F10.10 - Alcohol a buse, uncomplicate d, K74.00 - Hepati c fibrosis, unspec ified Phosphatidylethano l, Blood Today F10.10 - Alcohol a buse, uncomplicate d, K74.00 - Hepati c fibrosis, unspec ified US abdomen comp w elastography Today F10.10 - Alcohol a buse, uncomplicate d, K74.00 - Hepati c fibrosis, unspec ified LABS: Laboratory Tests 12/21/21 04/12/23 04/12/23 10:42 09:26 09:26 WBC 4.7 L Hgb 15.2 Hct 44.6 Plt Count 229 Estimated GFR > 60 GGT 407 H AST 47 H ALT 40 Alkaline Phosphata se 104 Alpha Fetoprotein 3.9 5.0 PEth 16:0/18.1 (PO PEth) >400 (H) PEth 16:0/18.2 (PL PEth) >40. 0 (H) ULTRASOUND OF THE ABDOMEN WITH ELASTOGRAPHY 05/23/23 (F-0) FINDINGS: PANCREAS: Normal. ABDOMINAL AORTA: The distal abdominal aorta is normal in caliber. Proximal and mid portions are not well visualized. INFERIOR VENA CAVA: Visualized portions are normal. LIVER: Liver echotexture is increased. The liver demonstrates normal size, and contour. No focal lesion or intrahepatic biliary duct dilatation. The right lobe measures 15 cm in length. The left lobe measures 10 cm in length. Portal flow is normal/hepatopedal Shear wave liver elastography median stiffness is 1.6 m/s (reference: normal median stiffness is 1.3 m/s or less). IQR/median stiffness to assess sampling precision is 0.3 (reference: good quality data set is IQR/median stiffness of 0.15 or less). GALLBLADDER: Normal. The gallbladder is physiologically distended without evidence of stones, sludge, polyps, wall thickening or pericholecystic fluid. COMMON BILE DUCT: Normal in caliber measuring 0.4 cm in diameter. RIGHT KIDNEY: Normal. No hydronephrosis. No renal calculi or focal parenchymal lesions. The kidney measures 10.6 cm in maximum dimension. LEFT KIDNEY: Normal. No hydronephrosis. No renal calculi or focal parenchymal lesions. The kidney measures 10.5 cm in maximum dimension. SPLEEN: Normal. The spleen measures 11 cm in maximum dimension. FREE FLUID: None. US/US abdomen comp w elastography IMPRESSION: 1. Impression: Echogenic liver. Liver is normal in size and contour. Limited visualization of the aorta. 2. Liver elastography: Limited due to s ampling error. TODAY'S VISIT Finnish #[id number]. Alcides Bren He continues to do well on the Creon. We discuss the lab findings and he says he drinks 5-6 drinks a day and he drinks Heiniken. However, his past seems to indicate a substantially higher amount the what he is reporting. I stressed that complete abstinence is best care for his liver but at this point he seems to be doing fairly well. He has history of alcohol abuse drinking up to 18 beers a day in the past. He continues to do well on his Creon for his pancreatic insufficiency and irritable bowel anti continues on omeprazole 40mg bid with good GERD control. He is complaining of insomnia and says he drinks to help him sleep. Many give him a trial of Remeron to see if this can help better and maybe he can come back even more on his alcohol use. Return office visit in 2 weeks to evaluate the affects of the Remeron. [facility] Medical History Hypertension Surgical History H/O colonoscopy History of esophagogastroduodenoscopy (EGD) Family History Father Heart problem Stroke HTN (hypertension) Mother HTN (hypertension) Arthritis Social History Alcohol intake: current Alcohol intake frequency: 3 or more drinks per day Alcohol type: beer Current occupational status: employed and unemployed Current occupation: right handed Review of Systems Const Denies fatigue, Denies fever(s), Denies night sweats, Denies poor appetite and Denies weight loss ENT Reports Normal hearing present, Denies dental pain, Denies dysphagia, Denies hearing loss, Denies mouth pain, Denies odynophagia, Denies throat swelling, Denies tongue swelling and Reports other (Dentition adequate) Card Reports no additional complaints Resp Reports no additional complaints GI Denies abdominal pain, Denies melena, Reports bloating, Denies hematochezia, Denies constipation, Reports GI cramping, Denies dysphagia, Denies excessive flatus, Denies early satiety, Reports heartburn, Denies diarrhea, Denies nausea, Denies odynophagia, Denies vomiting and Denies hematemesis Skin/Breast Denies pruritus, Denies lesions, Denies rash and Denies jaundice Neuro Reports Normal hearing present and Denies Abnormal speech present Psych Reports abnormal sleep pattern Endo Denies fatigue Aller/Immun Denies throat swelling and Denies tongue swelling Physical Exam Vital Signs: Last Vital Signs Pulse 88 06/03/23 08:05 BP 153/78 H 06/03/23 08:05 Pulse Ox 97 06/03/23 08:05 Oxygen Delivery Method Room Air 06/03/23 08:05 BMI result Body Mass Index 36.8 Const General: cooperative, no acute distress, well developed and well groomed Nutritional Appearance: well nourished and obese morbidly obese Orientation/consciousness: oriented to person, oriented to place and oriented to time Limitations: language barrier HEENT Head: Yes normocephalic and Yes atraumatic Eyes General: appearance normal, both eyes and all related structures Pupils: Equal, round and reactive pupils present Neck Neck: Yes normal visual inspection and Yes no lymphadenopathy Thyroid: Thyroid normal Resp Effort & Inspection: normal respiratory effort and able to speak in complete sentences Auscultation: clear to auscultation bilaterally Cardio Rate: regular rate Rhythm: regular rhythm Heart sounds: Normal, physiologic split S2 sound present Peripheral pulses: radial pulses present and posterior tibial pulses present GI Inspection: No distended, No Abdominal panniculus present and Yes obesity Palpation (GI): Soft to palpation, nontender, no guarding, not rigid and No hepatosplenomegaly present Percussion: Yes normal to percussion Auscultation: normal bowel sounds Rectal Exam - Male: Yes deferred Skin General skin exam: no rashes or lesions noted, turgor normal, skin not dry, no jaundice, No spider nevi and no striae Rashes: no rashes Nails: normal Neuro General: oriented to person, oriented to place and oriented to time Cranial nerves: Yes Equal, round and reactive pupils present and Yes Normal hearing present Speech: No Abnormal speech present Extrem General: Yes normal to inspection, No clubbing, No cyanosis and No edema Psych Appearance: grossly normal and well kempt Mental Status: mental status grossly normal Speech and movement: Normal speech and movement present Affect: normal affect Attitude: cooperative Thought process: Normal thought process present and Confabulating thought process present Thought content: Normal thought content present Insight: Poor insight present (Psych) Judgement: Poor judgement present (Psych) Results Reviewed Results Reviewed: Laboratory Tests 12/21/21 04/12/23 04/12/23 10:42 09:26 09:26 WBC 4.7 L Hgb 15.2 Hct 44.6 Plt Count 229 Estimated GFR > 60 GGT 407 H AST 47 H ALT 40 Alkaline Phosphatase 104 Alpha Fetoprotein 3.9 5.0 PEth 16:0/18.1 (POPEth) >400 (H) PEth 16:0/18.2 (PLPEth) >40. 0 (H) ULTRASOUND OF THE ABDOMEN WITH ELASTOGRAPHY 05/23/23 (F-0) FINDINGS: PANCREAS: Normal. ABDOMINAL AORTA: The distal abdominal aorta is normal in caliber. Proximal and mid portions are not well visualized. INFERIOR VENA CAVA: Visualized portions are normal. LIVER: Liver echotexture is increased. The liver demonstrates normal size, and contour. No focal lesion or intrahepatic biliary duct dilatation. The right lobe measures 15 cm in length. The left lobe measures 10 cm in length. Portal flow is normal/hepatopedal Shear wave liver elastography median stiffness is 1.6 m/s (reference: normal median stiffness is 1.3 m/s or less). IQR/median stiffness to assess sampling precision is 0.3 (reference: good quality data set is IQR/median stiffness of 0.15 or less). GALLBLADDER: Normal. The gallbladder is physiologically distended without evidence of stones, sludge, polyps, wall thickening or pericholecystic fluid. COMMON BILE DUCT: Normal in caliber measuring 0.4 cm in diameter. RIGHT KIDNEY: Normal. No hydronephrosis. No renal calculi or focal parenchymal lesions. The kidney measures 10.6 cm in maximum dimension. LEFT KIDNEY: Normal. No hydronephrosis. No renal calculi or focal parenchymal lesions. The kidney measures 10.5 cm in maximum dimension. SPLEEN: Normal. The spleen measures 11 cm in maximum dimension. FREE FLUID: None. US/US abdomen comp w elastography IMPRESSION: 1. Impression: Echogenic liver. Liver is normal in size and contour. Limited visualization of the aorta. 2. Liver elastography: Limited due to sampling error. Assessment & Plan Assessment & Plan (1) Liver fibrosis: Comment: Hemoglobin A1c 5.4 Hepatitis A IgM Ab NONREACTIVE Hep Bs Antigen NEGATIVE Hep Bs Antibody NONREACTIVE Hep B Core Total Ab NONREACTIVE Hepatitis C Ab (EIA) NONREACTIVE 07/09/19 Est GFR (Non-Af Amer) > 60 Liver Fibrosis Stage F0 Tumor Marker AFP 3.5 ULTRASOUND OF THE ABDOMEN WITH ELASTOGRAPHY 05/23/23 (F-0) * CURRENT LABS 04/12/23 [id number]:[id number] WBC 4.7 L Hgb 15.2 Hct 44.6 Plt Count 229 Estimated GFR > 60 GGT 407 H AST 47 H ALT 40 Alkaline Phosphatase 104 Alpha Fetoprotein 3.9 5.0 PEth 16:0/18.1 (POPEth) >400 (H) PEth 16:0/18.2 (PLPEth) >40. 0 (H) ULTRASOUND OF THE ABDOMEN WITH ELASTOGRAPHY 05/23/23 (F-0) FINDINGS: PANCREAS: Normal. ABDOMINAL AORTA: The distal abdominal aorta is normal in caliber. Proximal and mid portions are not well visualized. INFERIOR VENA CAVA: Visualized portions are normal. LIVER: Liver echotexture is increased. The liver demonstrates normal size, and contour. No focal lesion or intrahepatic biliary duct dilatation. The right lobe measures 15 cm in length. The left lobe measures 10 cm in length. Portal flow is normal/hepatopedal Shear wave liver elastography median stiffness is 1.6 m/s (reference: normal median stiffness is 1.3 m/s or less). IQR/median stiffness to assess sampling precision is 0.3 (reference: good quality data set is IQR/median stiffness of 0.15 or less). GALLBLADDER: Normal. The gallbladder is physiologically distended without evidence of stones, sludge, polyps, wall thickening or pericholecystic fluid. COMMON BILE DUCT: Normal in caliber measuring 0.4 cm in diameter. RIGHT KIDNEY: Normal. No hydronephrosis. No renal calculi or focal parenchymal lesions. The kidney measures 10.6 cm in maximum dimension. LEFT KIDNEY: Normal. No hydronephrosis. No renal calculi or focal parenchymal lesions. The kidney measures 10.5 cm in maximum dimension. SPLEEN: Normal. The spleen measures 11 cm in maximum dimension. FREE FLUID: None. US/US abdomen comp w elastography IMPRESSION: 1. Impression: Echogenic liver. Liver is normal in size and contour. Limited visualization of the aorta. 2. Liver elastography: Limited due to sampling erro Code(s): K74.00 - Hepatic fibrosis, unspecified Plan: Finnish #[id number]. Alcides Bren He continues to do well on the Creon. We discuss the lab findings and he says he drinks 5-6 drinks a day and he drinks Heiniken. However, his past seems to indicate a substantially higher amount the what he is reporting. I stressed that complete abstinence is best care for his liver but at this point he seems to be doing fairly well. He has history of alcohol abuse drinking up to 18 beers a day in the past. He continues to do well on his Creon for his pancreatic insufficiency and irritable bowel anti continues on omeprazole 40mg bid with good GERD control. He is complaining of insomnia and says he drinks to help him sleep. Many give him a trial of Remeron to see if this can help better and maybe he can come back even more on his alcohol use. Return office visit in 2 weeks to evaluate the affects of the Remeron (2) ETOH abuse: Code(s): F10.10 - Alcohol abuse, uncomplicated (3) Pancreatic insufficiency: Code(s): K86.89 - Other specified diseases of pancreas (4) GERD (gastroesophageal reflux disease): Code(s): K21.9 - Gastro-esophageal reflux disease without esophagitis (5) Anxiety: Code(s): F41.9 - Anxiety disorder, unspecified Plan Finnish #[id number], Azael. Alcides Correia He continues to do well on the Creon. We discuss the lab findings and he says he drinks 5-6 drinks a day and he drinks Heiniken. However, his past seems to indicate a substantially higher amount the what he is reporting. I stressed that complete abstinence is best care for his liver but at this point he seems to be doing fairly well. He has history of alcohol abuse drinking up to 18 beers a day in the past. He continues to do well on his Creon for his pancreatic insufficiency and irritable bowel anti continues on omeprazole 40mg bid with good GERD control. He is complaining of insomnia and says he drinks to help him sleep. Many give him a trial of Remeron to see if this can help better and maybe he can come back even more on his alcohol use. Return office visit in 2 weeks to evaluate the affects of the Remeron Medications: New mirtazapine (Remeron) 15 mg PO BEDTIME 30 tabs 6RF F41.9 - Anxiety disorder, unspecified Coding Level of Care Code Est Pt Level 3 (71253) Diagnoses Liver fibrosis K74.00 ETOH abuse F10.10 Pancreatic insufficiency K86.89 GERD (gastroesophageal reflux disease) K21.9 Anxiety F41.9
== END 2023-06-03 08:43 | disposition home or self-care (01) ==
PROVIDERS: PCP Nurse Practitioner Primary Care; Visit Provider Nurse Practitioner
DX: K74.00 Hepatic fibrosis, unspecified (principal); F10.10 Alcohol abuse, uncomplicated; K86.89 Other specified diseases of pancreas; K21.9 Gastro-esophageal reflux disease without esophagitis; F41.9 Anxiety disorder, unspecified
CPT/HCPCS: 99213

== ENCOUNTER → 2023-06-03 07:55 | Outpatient (BNVA) | payer MEDICAID, SELFPAY | PROVIDERS: PCP Nurse Practitioner Primary Care; Visit Provider Nurse Practitioner | DX: K86.89 Other specified diseases of pancreas (principal); K21.9 Gastro-esophageal reflux disease without esophagitis; K74.00 Hepatic fibrosis, unspecified; F10.10 Alcohol abuse, uncomplicated; F41.9 Anxiety disorder, unspecified | CPT/HCPCS: 99212 ==

== ENCOUNTER 2023-07-17 15:18 | Outpatient (AMB) | payer MEDICAID, SELFPAY ==
--- NOTE | 2023-07-17 15:27 | A.OFFVIS_ITS ---
Intake Vital Signs 07/17/23 15:28 Height 5 ft 2 in Weight 200 lb BMI 36.6 BP 137/85 Blood Pressure Location Lt brachial Position Sitting Pulse 106 H Intake Visit Reasons: follow up GERD Intake Note: Patient presents to in office visit today in follow up of GERD. CC: Patient reports feeling a lot better after starting the Remeron. He denies having any GI concerns today. Allergies No Known Allergies Allergy (Verified 07/17/23 15:32) HPI follow up GERD HPI Details Assessment & Plan (1) Pancreatic insufficiency: Code(s): K86.89 - Other specified diseases of pancreas (2) GERD (gastroesophageal reflux diseas e): Code(s): K21.9 - Gastro-esophageal reflux disease without esophagitis (3) ETOH abuse: Code(s): F10.10 - Alcohol abuse, uncomplicated (4) Liver fibrosis: Comment: Hemoglobin A1c 5.4 Hepatitis A IgM Ab NONREACTIVE Hep Bs Antigen NEGATIVE Hep Bs Antibody NONREACTIVE Hep B Core Total Ab NONREACTIVE Hepatitis C Ab (EIA) NONREACTIVE * 07/09/19 Est GFR (Non-Af Amer) > 60 Liver Fibrosis Stage F0 Tumor Marker AFP 3.5 * 08/31/20 Plt Count 226 Est GFR (Non-Af Amer) Hemoglobin A1c Ferritin 233 Total Bilirubin 0.8 Direct Bilirubin 0.4 GGT 326 H AST 48 H ALT 58 H Alkaline Phosphatase 98 Alpha Fetoprotein 4.2 Anti-Mitochondrial Ab NEGATIVE ULTRASOUND OF THE ABDOMEN 08/2020 IMPRESSION: Diffuse increase in hepatic echogenicity likely fatty infiltration. Similar findings were seen on the previous ultrasound 07/25/2019. Pancreas, gallbladder and series unremarkable. There are echogenic calcifications, likely vascular seen scattered in the right kidney. Code(s): K74.00 - Hepatic fibrosis, unspecified (5) Anxiety: Code(s): F41.9 - Anxiety disorder, unspecified Medications: New mirtazapine ([place] on) 15 mg PO BEDTIME 3 0 tabs 6RF F41.9 - Anxiety di sorder, unspecifie d [place]ian #[id number], Lan vazquez. Live Bren He continues to d o well on the Creo n. We discuss th e lab findings and he says he drinks 5-6 drinks a day and he drinks Pura iken. However, hi s past seems to in dicate a substanti ally higher amount the what he is re porting. I stress ed that complete a bstinence is best care for his liver but at this point he seems to be do ing fairly well. He has history of alcohol abuse joellen fox up to 18 beer s a day in the pas t. He continues to do well on his Creon for his cordova creatic insufficie ncy and irritable bowel anti continu es on omeprazole 4 0mg bid with good GERD control. He is complaining of insomnia and says he drinks to help him sleep. Many g haritha him a trial of Remeron to see if this can help bet ter and maybe he c an come back even more on his alcoho l use. Return off ice visit in 2 we ks to evaluate the affects of the Re divya. TODAY'S VISIT ICELANDIC #Vanessa Dilip He says that he received the mirtazapine and it is helping him well with his sleep. With this I remind him that the reason I am prescribing it is to try to help him decrease his alcohol intake which he says he was doing to help him relax and sleep at night. He smiles and says he will do this. I remind him that this is to help take care of his liver so he does not run into problems as he gets older. With this we will again evaluate his liver in 6 months. [facility] Medical History Hypertension Surgical History H/O colonoscopy History of esophagogastroduodenoscopy (EGD) Family History Father Heart problem Stroke HTN (hypertension) Mother HTN (hypertension) Arthritis Social History Alcohol intake: current Alcohol intake frequency: 3 or more drinks per day Alcohol type: beer Current occupational status: employed and unemployed Current occupation: right handed Review of Systems Const Denies fatigue, Denies fever(s), Denies night sweats, Denies poor appetite and Denies weight loss ENT Reports Normal hearing present, Denies dental pain, Denies dysphagia, Denies hearing loss, Denies mouth pain, Denies odynophagia, Denies throat swelling, Denies tongue swelling and Reports other (Dentition adequate) Card Reports no additional complaints Resp Reports no additional complaints GI Denies abdominal pain, Denies melena, Reports bloating, Denies hematochezia, Denies constipation, Denies GI cramping, Denies dysphagia, Denies excessive flatus, Denies early satiety, Reports heartburn, Reports diarrhea, Denies nausea, Denies odynophagia, Denies vomiting and Denies hematemesis Skin/Breast Denies pruritus, Denies lesions, Denies rash and Denies jaundice Neuro Reports Normal hearing present and Denies Abnormal speech present Psych Reports abnormal sleep pattern and Reports anxiety Endo Denies fatigue Aller/Immun Denies throat swelling and Denies tongue swelling Physical Exam Vital Signs: Last Vital Signs Pulse 106 H 07/17/23 15:28 BP 137/85 07/17/23 15:28 BMI result Body Mass Index 36.6 Const General: cooperative, no acute distress, well developed and well groomed Nutritional Appearance: average body habitus and well nourished Orientation/consciousness: oriented to person, oriented to place and oriented to time Limitations: language barrier HEENT Head: Yes normocephalic and Yes atraumatic Eyes General: appearance normal, both eyes and all related structures Pupils: Equal, round and reactive pupils present Neck Neck: Yes normal visual inspection and Yes no lymphadenopathy Thyroid: Thyroid normal Resp Effort & Inspection: normal respiratory effort and able to speak in complete sentences Auscultation: clear to auscultation bilaterally Cardio Rate: regular rate Rhythm: regular rhythm Heart sounds: Normal, physiologic split S2 sound present Peripheral pulses: radial pulses present and posterior tibial pulses present GI Inspection: No distended and No Abdominal panniculus present Palpation (GI): Soft to palpation, nontender, no guarding, not rigid and No hepatosplenomegaly present Percussion: Yes normal to percussion Auscultation: normal bowel sounds Rectal Exam - Male: Yes deferred Skin General skin exam: no rashes or lesions noted, turgor normal, skin not dry, no jaundice, No spider nevi and no striae Rashes: no rashes Nails: normal Neuro General: oriented to person, oriented to place and oriented to time Cranial nerves: Yes Equal, round and reactive pupils present and Yes Normal hearing present Speech: No Abnormal speech present Extrem General: Yes normal to inspection, No clubbing, No cyanosis and No edema Psych Appearance: grossly normal and well kempt Mental Status: mental status grossly normal Speech and movement: Normal speech and movement present Affect: normal affect Attitude: cooperative Thought process: Normal thought process present and not confabulating Thought content: Normal thought content present Insight: Limited insight present (Psych) Judgement: Limited judgement present (Psych) Assessment & Plan Assessment & Plan (1) Insomnia: Code(s): G47.00 - Insomnia, unspecified (2) Pancreatic insufficiency: Code(s): K86.89 - Other specified diseases of pancreas (3) GERD (gastroesophageal reflux disease): Code(s): K21.9 - Gastro-esophageal reflux disease without esophagitis (4) Liver fibrosis: Comment: Hemoglobin A1c 5.4 Hepatitis A IgM Ab NONREACTIVE Hep Bs Antigen NEGATIVE Hep Bs Antibody NONREACTIVE Hep B Core Total Ab NONREACTIVE Hepatitis C Ab (EIA) NONREACTIVE 07/09/19 Est GFR (Non-Af Amer) > 60 Liver Fibrosis Stage F0 Tumor Marker AFP 3.5 ULTRASOUND OF THE ABDOMEN WITH ELASTOGRAPHY 05/23/23 (F-0) * CURRENT LABS 04/12/23 10:4209:2609:26 WBC 4.7 L Hgb 15.2 Hct 44.6 Plt Count 229 Estimated GFR > 60 GGT 407 H AST 47 H ALT 40 Alkaline Phosphatase 104 Alpha Fetoprotein 3.9 5.0 PEth 16:0/18.1 (POPEth) >400 (H) PEth 16:0/18.2 (PLPEth) >40. 0 (H) ULTRASOUND OF THE ABDOMEN WITH ELASTOGRAPHY 05/23/23 (F-0) FINDINGS: PANCREAS: Normal. ABDOMINAL AORTA: The distal abdominal aorta is normal in caliber. Proximal and mid portions are not well visualized. INFERIOR VENA CAVA: Visualized portions are normal. LIVER: Liver echotexture is increased. The liver demonstrates normal size, and contour. No focal lesion or intrahepatic biliary duct dilatation. The right lobe measures 15 cm in length. The left lobe measures 10 cm in length. Portal flow is normal/hepatopedal Shear wave liver elastography median stiffness is 1.6 m/s (reference: normal median stiffness is 1.3 m/s or less). IQR/median stiffness to assess sampling precision is 0.3 (reference: good quality data set is IQR/median stiffness of 0.15 or less). GALLBLADDER: Normal. The gallbladder is physiologically distended without evidence of stones, sludge, polyps, wall thickening or pericholecystic fluid. COMMON BILE DUCT: Normal in caliber measuring 0.4 cm in diameter. RIGHT KIDNEY: Normal. No hydronephrosis. No renal calculi or focal parenchymal lesions. The kidney measures 10.6 cm in maximum dimension. LEFT KIDNEY: Normal. No hydronephrosis. No renal calculi or focal parenchymal lesions. The kidney measures 10.5 cm in maximum dimension. SPLEEN: Normal. The spleen measures 11 cm in maximum dimension. FREE FLUID: None. US/US abdomen comp w elastography IMPRESSION: 1. Impression: Echogenic liver. Liver is normal in size and contour. Limited visualization of the aorta. 2. Liver elastography: Limited due to sampling erro Code(s): K74.00 - Hepatic fibrosis, unspecified (5) ETOH abuse: Code(s): F10.10 - Alcohol abuse, uncomplicated Plan ICELANDIC #Vanessa LIve He says that he received the mirtazapine and it is helping him well with his sleep. With this I remind him that the reason I am prescribing it is to try to help him decrease his alcohol intake which he says he was doing to help him relax and sleep at night. He smiles and says he will do this. I remind him that this is to help take care of his liver so he does not run into problems as he gets older. With this we will again evaluate his liver in 6 months. Coding Level of Care Code Est Pt Level 3 (86009) Diagnoses Insomnia G47.00 Pancreatic insufficiency K86.89 GERD (gastroesophageal reflux disease) K21.9 Liver fibrosis K74.00 ETOH abuse F10.10
[2023-07-17 15:28] VITALS: BP 137/85; PULSE 106; BMI 36.6
== END 2023-07-17 15:43 | disposition home or self-care (01) ==
PROVIDERS: PCP Nurse Practitioner Primary Care; Visit Provider Nurse Practitioner
DX: G47.00 Insomnia, unspecified (principal); K86.89 Other specified diseases of pancreas; K21.9 Gastro-esophageal reflux disease without esophagitis; K74.00 Hepatic fibrosis, unspecified; F10.10 Alcohol abuse, uncomplicated
CPT/HCPCS: 99213

== ENCOUNTER → 2023-07-17 15:18 | Outpatient (BNVA) | payer MEDICAID, SELFPAY | PROVIDERS: PCP Nurse Practitioner Primary Care; Visit Provider Nurse Practitioner | DX: K21.9 Gastro-esophageal reflux disease without esophagitis (principal); K74.00 Hepatic fibrosis, unspecified; K86.89 Other specified diseases of pancreas; G47.00 Insomnia, unspecified; F10.10 Alcohol abuse, uncomplicated | CPT/HCPCS: 99212 ==

== ENCOUNTER 2023-10-21 08:46 | Outpatient (REF) | payer MEDICAID, SELFPAY ==
[2023-10-21 11:13] LABS: MANUAL DIFF FLAG NO
[2023-10-21 11:37] LABS: Basophils Absolute Auto 0.1 X10*3/uL (0.0-0.2); Basophils Percent Auto 0.9 % (0-2); Eosinophils Absolute Auto 0.1 X10*3/uL (0.0-0.4); Eosinophils Percent Auto 0.8 % (0-4); Hematocrit 46.8 % (42.0-52.0); Hemoglobin 15.6 g/dl (14.0-18.0); Imm Gran Abs Auto 0.03 X10*3/uL (0.00-0.03); Imm Gran Pct Auto 0.5 % (0.0-0.4); Lymphocytes Absolute Auto 1.6 X10*3/uL (1.2-4.9); Lymphocytes Percent Auto 23.9 % (20-40); Mean Corpuscular HGB Conc 33.3 g/dl (31.0-36.0); Mean Corpuscular Hemoglobin 28.2 pg (27.0-33.0); Mean Corpuscular Volume 84.5 fL (80.0-98.0); Monocytes Absolute Auto 0.5 X10*3/uL (0.1-1.2); Neutrophils Absolute Auto 4.4 x10*3/uL (2.0-8.3); Neutrophils Percent Auto 65.9 % (45-73); Platelet Count 282 X10*3/uL (160-400); Red Blood Count 5.54 X10*6/uL (4.60-5.80); White Blood Count 6.7 X10*3/uL (4.8-10.8)
[2023-10-21 11:47] LABS: Alanine Aminotransferase 41 U/L (0-40); Albumin Level 4.4 g/dL (3.5-5.0); Alkaline Phosphatase 118 U/L (39-117); Aspartate Amino Transferase 39 U/L (5-37); Bilirubin Direct 0.2 mg/dL (0.0-0.5); Bilirubin Total 0.5 mg/dL (0.0-1.0); Total Protein 7.9 g/dL (6.5-8.0)
[2023-10-21 12:11] LABS: HIV AB/AG Nonreactive (Nonreactive); HIV Num 1 0.07 S/CO (0.00-0.99); ~HepC Num1 0.11 S/CO (0.00-0.79); ~Hepatitis C Antibody Nonreactive (Nonreactive)
[2023-10-21 12:12] LABS: Hepatitis A Antibody IgG Nonreactive (Nonreactive); ~Hepatitis A Antibody IgG 0.29 S/CO (0.00-0.99)
== END 2023-10-21 08:47 | disposition home or self-care (01) ==
LOC: HO.HHCL 08:46
PROVIDERS: Visit Provider Family Medicine
DX: Z11.4 Encounter for screening for human immunodeficiency virus [HIV] (principal); F10.20 Alcohol dependence, uncomplicated; F41.9 Anxiety disorder, unspecified
CPT/HCPCS: 36415; 80076; 85025; 86708; 86803; 87389

== ENCOUNTER 2023-12-04 10:10 | Outpatient (REF) | payer MEDICAID, SELFPAY ==
--- NOTE | ~2023-12-04 | XR_ITS ---
EXAMINATION: XR SHOULDER, RIGHT CLINICAL INFORMATION: Pain in right shoulder COMPARISON: Right shoulder 10/17/2022 TECHNIQUE: AP neutral scapular Y, and axillary views of the right shoulder. FINDINGS: The bones and soft tissues are normal. No fracture. Glenohumeral and acromioclavicular alignment is anatomic with normal joint space. No abnormal soft tissue calcifications. XR/XR shoulder RT min 2V IMPRESSION: No bony abnormality.
== END 2023-12-04 10:11 | disposition home or self-care (01) ==
LOC: HO.HOSX 10:10
PROVIDERS: Visit Provider Physician Assistant
DX: M25.511 Pain in right shoulder (principal); M75.81 Other shoulder lesions, right shoulder
CPT/HCPCS: 73030; 99212

== ENCOUNTER 2023-12-04 14:16 | Outpatient (AMB) | payer MEDICAID, SELFPAY ==
--- NOTE | 2023-12-04 14:37 | MHC.OFFVIS ---
Intake Visit Reasons: N/problem Rt shoulder pain Intake Note: Jewel a 48 year old right hand dominant male who presents today for an evaluation of right shoulder pain. Patient reports his pain has been present for about 1-2 years. He states pain with lifting his arm above his head. Limited ROM. Denies injury. He has tried and failed PT. Finds no relief with Tylenol or Motrin. Allergies No Known Allergies Allergy (Verified 12/04/23 15:00) Medication List - Last Reconciled 12/04/23 by Mary Duncan PA-C acetaminophen 500 mg PO Q6H PRN amlodipine 10 mg PO DAILY cholecalciferol (vitamin D3) 50 mcg PO DAILY cyclobenzaprine 5 mg PO BEDTIME dicyclomine 20 mg PO QIDACHS 30 days fluticasone furoate 50 mcg/actuation inhalation folic acid 0.4 mg PO DAILY ibuprofen 600 mg PO TID cblvxe-rfiesnxo-bhaqdwc 40,000-126,000- 168,000 unit (Zenpep) 1 cap PO .QIDAC lisinopril-hydrochlorothiazide 10-12.5 mg 1 tab PO DAILY loratadine 10 mg PO DAILY meclizine 25 mg PO DAILY mirtazapine (Remeron) 15 mg PO BEDTIME omeprazole 40 mg PO BID 90 days ondansetron HCl (Zofran) 4 mg PO Q8H thiamine HCl (vitamin B1) 100 mg PO DAILY HPI HPI N/problem Rt shoulder pain : Details: 48-year-old right hand dominant male who presents to the 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 He states he has limited ROM and pain in his right shoulder which comes with overhead lifting. He had his bilateral shoulder give out in the past. He denies any pain at night. He has attended physical therapy without benefits. He denies any previous injury. He finds minimal relief with Tylenol and Motrin. [facility] Medical History Hypertension Surgical History H/O colonoscopy History of esophagogastroduodenoscopy (EGD) Family History Father Heart problem Stroke HTN (hypertension) Mother HTN (hypertension) Arthritis Social History Alcohol intake: current Alcohol intake frequency: 3 or more drinks per day Alcohol type: beer Current occupational status: employed and unemployed Current occupation: right handed Review of Systems Const All systems reviewed & are unremarkable except as noted in HPI and below Physical Exam Extrem Other: Right shoulder normal to inspection. Tenderness over the bicipital groove and along the deltoid region of the shoulder. Forward flexion to 175, external rotation to 90, internal rotation to S1. 5/5 RTC strength. Negative Martinez and cross body abduction. NVI. Results Reviewed Results Reviewed: Xrays were obtained in the office today and personally reviewed by me of the right shoulder negative for acute fracture or dislocations Assessment & Plan Assessment & Plan (1) Tendinitis of right rotator cuff: Code(s): M75.81 - Other shoulder lesions, right shoulder Category: Medical Plan She has failed conservative treatment with physical therapy and has limitations with daily activities therefore an MRI of the right shoulder was ordered to further evaluate integrity of RTC. Once the scan is complete, she will see us back to discuss the results. Orders: Orders XR shoulder RT min 2V 12/04/23 M25.511 - Pain in right shoulder MR shoulder RT wo con 12/04/23 M77.8 - Other enthesopathies, not elsewhere classified Patient Instructions: Scribed for Mary Duncan PA-C, by Artemio Clemente senior medical transcriptionist, on 12/04/2023 at 2:15 PM EST. IMary PA-C, have personally reviewed and agree with the information entered by the scribe. Coding Level of Care Code New Pt Level 3 (58912) Diagnoses Tendinitis of right rotator cuff M75.81
== END 2023-12-04 15:24 | disposition home or self-care (01) ==
PROVIDERS: PCP Nurse Practitioner Primary Care; Visit Provider Physician Assistant
DX: M75.81 Other shoulder lesions, right shoulder (principal)
CPT/HCPCS: 99203

== ENCOUNTER 2023-12-09 09:08 | Outpatient (REF) | payer MEDICAID, SELFPAY ==
--- NOTE | ~2023-12-09 | XR_ITS ---
EXAMINATION: XR TOES, RIGHT CLINICAL INFORMATION: Great toe pain, right pain, swelling right toe IP joint area COMPARISON: None available. TECHNIQUE: AP view of the right foot and 3 views of the right great toe FINDINGS: There are no fractures or dislocations. Joint spaces are within normal limits. There is mild soft tissue swelling on the medial aspect of the forefoot along the lateral aspect of the head of the fifth metatarsal. XR/XR toe RT min 2V IMPRESSION: No acute bony abnormality.
== END 2023-12-09 09:09 | disposition home or self-care (01) ==
LOC: HO.HHCX 09:08
PROVIDERS: Visit Provider Emergency Medicine
DX: M79.674 Pain in right toe(s) (principal)
CPT/HCPCS: 36415; 73660; 84550; 86618

== ENCOUNTER 2023-12-09 09:21 | Outpatient (REF) | payer MEDICAID, SELFPAY ==
[2023-12-09 12:40] LABS: Uric Acid 9.4 mg/dL (3.4-7.0)
[2023-12-10 09:48] LABS: Lyme Abs Screen <0.90 index
== END 2023-12-09 09:22 | disposition home or self-care (01) ==
LOC: HO.HHCL 09:21
PROVIDERS: Visit Provider Emergency Medicine
DX: M79.674 Pain in right toe(s) (principal)
CPT/HCPCS: 36415; 84550; 86617; 86618

== ENCOUNTER → 2024-10-20 19:30 | Outpatient (REF) | payer MEDICAID, SELFPAY ==
--- OUTSIDE RECORDS SUMMARY | 2024-10-20 21:41 | XMS_ITS | Encounter Summary ---
Author Organization [facility] Address [address] [place] [address] [address] [place] [address] Care Team Providers Care Applied Anthropologist Name Role Phone Gris Pang Primary Care Provider [phone] Encounter Details Date Type Department Care Team (Latest Contact Info) Description 12/11/2020 Abstract [facility] CONVERSIONS Dental, Provider, DDS Social History Tobacco Use Types Packs/Day Years Used Date Smoking Tobacco: Never Assessed Sex and Gender Information Value Date Recorded Sex Assigned at Male 06/10/2022 10:28 AM EDT Legal Sex Male 10:28 AM EDT Gender Identity Male 06/10/2022 10:28 AM EDT Sexual Orientation Straight 06/10/2022 10 :28 AM EDT documented as of this encounter Plan of Treatment Upcoming Encounters Date Type Department Care Team (Late st Contact Info) Description 11/10/2024 2:30 PM EDT Office Visit [facility] ADULT DENTAL [address] [place] [address] Spring-Ma, Eugenia, DDS [address] [place] [address] documented as of this encounter Visit Diagnoses Not on filedocumented in this encounter Care Teams Applied Anthropologist Relationship Specialty Start Date End Date Gris Pang ANP [address] [place] [address] PCP - General Family Medicine 07/26/20 documented as of this encounter
--- OUTSIDE RECORDS SUMMARY | 2024-10-20 21:41 | XMS_ITS | Clinical Summary ---
Author Organization [facility] Address [address] [place] [address] Care Team Providers Care Exercise Teacher Name Role Phone Jeff Allen NP Primary Care Provider [phone] Source Comments PLEASE NOTE, if this patient is a minor, it may be UNLAWFUL to discuss sensitive information that is contained in these records (such as FAMILY PLANNING, MENTAL HEALTH or SUBSTANCE ABUSE) with the minor patient's parent or other person without the patient's specific authorization.[facility] Allergies No known active allergies Medications ketoconazole (NIZORAL) 2 % shampooIndication s:Tinea pedis of both feet Apply topically once daily as needed for itching. 120 mL 1 6 Active clotrimazole (LOTRIMIN) 1 % creamIndications: Tinea pedis of both feet Apply topically 2 (two) times daily. 15 g 1 6 Active naproxen (NAPROSYN) 500 mg tabletIndications :Chronic bilateral low back pain without sciatica,Bursitis of right shoulder Take 1 Tab by mouth 2 (two) times daily with a meal. 60 Tab 3 6 Active capsaicin 0.025 % creamIndications: Arthralgia of both knees Apply topically 3 (three) times daily. 45 g 2 6 Active omeprazole (PRILOSEC) [address] capsuleIndication s:Heartburn Take 1 Cap by mouth every morning before breakfast. Do not crush or chew. 30 Cap 1 6 Active amLODIPine (NORVASC) 5 mg tabletIndications :Essential hypertension Take 1 Tab by mouth once daily. 30 Tab 5 6 Active Active Problems Problem Noted Date Diagnosed Date Essential hypertension 04/22/2016 Chronic pain of both knees 04/22/2016 Depression 04/21/2016 Overview (04/21/2016): [facility] Bilateral low back pain without sciatica 016 Bursitis of right shoulder 09/28/2015 Sleep apnea 09/28/2015 Overview (12/25/2015): 2015 home sleep study Family History Medical History Relation Name Comments Arthritis Father High Cholesterol Father Hypertension Father Arthritis Mother Diabetes Mother Hypertension Mother Relation Name Status Comments Father Alive Mother Alive Social History Tobacco Use Types Packs/Day Years Used Date Smoking Tobacco: Never Alcohol Use Standard Drinks/Week Comments Yes 0 (1 standard drink = 0.6 oz pur e alcohol) socially Social Connections Answer Date Recorded Social Connections and Isolation 0 04/04/2019 Financial Resource Strain Answer Date R ecorded Financial Resource Strain 0 2018 Stress Answer Date Recorded Stress 0 04/04/2019 Physical Activity Answer Date Recorded Physical Activity 0 04/04/2019 Food Insecurity Answer Date Recorded Food 0 04/04/2019 Transportation Needs Answer Date Record ed Transportation 0 04/04/2019 Housing Stability Answer Date Recorded Housing 0 04/04/2019 Safety and Environment Answer Date Kali rded Safety 0 04/04/2019 Utilities Answer Date Recorded Utilities 0 04/04/2019 Employment Answer Date Recorded Employment 0 04/04/2019 Sex and Gender Information Value Date Recorded Sex Assigned at Not on file Legal Sex Male 9:58 AM PST Gender Identity Not on file Sexual Orientation Not on file Last Filed Vital Signs Vital Sign Reading Time Taken Comments Blood Pressure 150/100 04/22/2016 3:36 PM EDT Pulse 80 04/22/2016 3:36 PM EDT Temperature 36.8 ??C (98.3 ??F) 04/22/2016 3:36 PM ED T Respiratory Rate 20 04/22/2016 3:36 PM EDT Oxygen Saturation 95% 09/28/2015 11:17 AM EST Inhaled Oxygen Concentration - - Weight 89 kg (196 lb 4.8 oz) 04/22/2016 3:36 PM EDT Height 170.2 cm (5' 7 ) 02/19/2016 4:33 PM EDT Body Mass Index 30.74 02/19/2016 4:33 PM EDT Plan of Treatment Not on file Insurance [place] MEDICAID Care Teams Exercise Teacher Relationship Specialty Start Date End Date Jeff Allen NP [address] [place] [address] PCP - General 06/18/18
--- OUTSIDE RECORDS SUMMARY | 2024-10-20 21:41 | XMS_ITS | Encounter Summary ---
Author Organization [email or web address] Address [address] [place] [address] Care Team Providers Care Willow Analyst Name Role Phone Poly Gris ALEMAN Primary Care Provider [phone] Reason for Visit * Reason Comments Med Refill Encounter Details Date Type Department Care Team (Late st Contact Info) Description 12/18/2023 Refill [facility] [address], [place] [id number] Constantine Tilley MD [address] [place] [address] Social History Tobacco Use Types Packs/Day Years Used Date Smoking Tobacco: Never Smokeless Tobacco: Never Alcohol Use Standard Drinks/Week Comments Yes 0 (1 standard drink = 0.6 oz pur e alcohol) Alcohol Answer Date Recorded How often do you have a drink containing alcohol ? 4 10/02/2023 How many drinks containing a lcohol do you have on a typical day when you are drinking? 2 10/02/2023 How often do you have six or more drinks on one occasion? 4 10/02/2023 Depression Answer Date Recorded Patient Health Questionnaire-9 Score 24 10/03/2023 Patient Health Questionnaire-9 Score 24 10/03/2023 Last PHQ-9: Questionnaire Data Not on file 0 10/03/2023 Housing Stability Answer Date Recorded What is your housing situation today? I have tremaine purdy 06/15/[address] you li ve. Do you have problems with any of the following? None of the above 06/15/2023 Food Insecurity Answer Date Recorded Within the past 12 months, y ou worried that your food would run out before you got money to buy more: Never True 06/15/2023 Within the past 12 months,th e food you bought just didn't last and you didn't have enough money to get more: Never True 12/2022 Transportation Answer Date Recorded In the past 12 months, has l ack of transportation kept you from medical appts, meetings, work or from getting things needed for daily living? No 06/15/2023 Utilities Answer Date Recorded In the past 12 months, has t he electric, gas, oil or water company threatened to shut off services in your home? No 06/15/2023 Depression Answer Date Recorded Patient Health Questionnaire-2 Score 6 10/03/2023 Sex and Gender Information Value Date Recorded Sex Assigned at Male 06/10/2022 10:28 AM EDT Legal Sex Male 10:28 AM EDT Gender Identity Male 06/10/2022 10:28 AM EDT Sexual Orientation Straight 06/10/2022 10 :28 AM EDT documented as of this encounter Plan of Treatment Upcoming Encounters Date Type Department Care Team (Late st Contact Info) Description 11/10/2024 2:30 PM EDT Office Visit [facility] [address] [place] [address] Spring-Eugenia Ma, DDS [address] [place] [address] documented as of this encounter Visit Diagnoses Not on filedocumented in this encounter Additional Health Concerns Assessment Noted Time PHQ-9 Depression Total Score: 24 024 11:43 AM EST documented as of this encounter Care Teams Willow Analyst Relationship Specialty Start Date End Date Gris Pang ANP [address] [place] [address] PCP - General Family Medicine 07/26/20 documented as of this encounter
--- OUTSIDE RECORDS SUMMARY | 2024-10-20 21:42 | XMS_ITS | Encounter Summary ---
Author Organization [employer] Address [address] [facility] [address] [place] [address] Care Team Providers Care Agricultural Plow Operator Name Role Phone Gris Pang ASH Primary Care Provider [phone] Reason for Visit * Reason Comments Dental Exam Patient presents tod ay for a limited exam Encounter Details Date Type Department Care Team (Late st Contact Info) Description 10/05/2024 3:30 PM EST Office Visit [facility] [address] [place] [address] Eugenia Flynn, DDS [address] [place], [place] [phone] Tooth sensitivity to cold (Primary Dx) Social History Tobacco Use Types Packs/Day Years [...] the past 12 months, has t he [employer], gas, oil or water company threatened to [...] AM EDT documented as of this encounter Progress Notes * Eugenia Flynn DDS - 10/05/2024 3:30 PM EST Dental procedures in this visit D0140 - LIMITED ORAL EVALUATION - PROBLEM FOCUSED (Completed) Service provider: Eugenia Flynn DDS Billing provider: Eugenia Flynn DDS [id number] - INTRAORAL - PERIAPICAL FIRST RADIOGRAPHIC IMAGE (Completed) Service provider: Eugenia Flynn DDS Billing provider: Eugenia Flynn DDS [id number] - BITEWING - SINGLE RADIOGRAPHIC IMAGE (Completed) Service provider: Eugenia Flynn DDS Billing provider: Eugenia Flynn DDS [id number] - CASE PRESENTATION, DETAILED AND EXTENSIVE TREATMENT PLANNING (Completed) Service provider: Eugenia Flynn DDS Billing provider: Eugenia Flynn DDS Patient ID: Italo Garcia is a 49 y.o. male. Time Out: Timeout Date: 10/05/24, Timeout Time: 1459 (time out for limited exam) Location: [facility] Tooth: Maxilla and Mandible Procedure: Limited exam Verified the above with patient, medical office assistant instructor, and provider. Confirmed via patient's chart, intraorally and by radiographs. Hair Baler: not applicable Chief Complaint Patient presents with Dental Exam Patient presents today for a limited exam Medical Hx: Vitals: There were no vitals taken for this visit. Past Medical History: Diagnosis Date Alcoholic fatty liver Bilateral carpal tunnel syndrome 08/09/2020 Claustrophobia GERD (gastroesophageal reflux disease) Hypertension Palpitations Sleep apnea 09/28/2015 2015 home sleep study Vitamin D deficiency Medications: Outpatient Encounter Medications as of 10/05/2024 Medication Sig Dispense Refill acetaminophen (Tylenol) 500 MG tablet Take 2 tablets (1,000 mg) by mouth every 8 (eight) hours if needed for moderate pain or fever. 100 tablet 1 amLODIPine (Norvasc) 10 MG tablet TAKE 1 TABLET BY MOUTH EVERY DAY 90 tablet 1 baclofen (Lioresal) 5 MG tablet TAKE 1 TO 2 TABLETS BY MOUTH THREE TIMES DAILY NEEDED FOR MUSCLESPASMS 60 tablet 1 cholecalciferol (Vitamin D-3) 50 MCG (2000 UT) tablet TAKE 1 TABLET BY MOUTH EVERY DAY 90 tablet 1 dicyclomine (Bentyl) 20 MG tablet TAKE 1 TABLET BY MOUTH FOUR TIMES DAILY BEFORE MEALS AND AT BEDTIME famotidine (Pepcid) 20 MG tablet Take 1 tablet by mouth every 12 (twelve) hours. fluticasone (Flonase) 50 MCG/ACT nasal spray Administer 1-2 sprays into affected nostril(s) at bed time. folic acid (Folvite) 400 MCG tablet TAKE 1 TABLET BY MOUTH EVERY DAY 90 tablet 3 ibuprofen 800 MG tablet Take 1 tablet by mouth every 8 (eight) hours. lidocaine (Lidoderm) 5 % patch Place 1 patch on the skin at bed time. lidocaine (Xylocaine) 5 % ointment Apply topically at bed time. lisinopril-hydroCHLOROthiazide 10-12.5 MG tablet TAKE 1 TABLET BY MOUTH EVERY DAY 90 tablet 2 loratadine (Claritin) 10 MG tablet Take 1 tablet by mouth at bed time. meclizine (Antivert) 25 MG tablet Take 1 tablet by mouth every 8 (eight) hours. omeprazole (PriLOSEC) [address] capsule Take 1 capsule by mouth 2 times daily. omeprazole OTC (PriLOSEC OTC) 20 MG EC tablet Take 1 tablet by mouth at bed time. thiamine (Vitamin B-1) 100 MG tablet Take 1 tablet by mouth at bed time. cyclobenzaprine (Flexeril) 10 MG tablet Take 1 tablet (10 mg) by mouth 3 times daily for 10 days. 30 tablet 0 gabapentin (Neurontin) 300 MG capsule Take 1 capsule (300 mg) by mouth 3 times daily for 10 days. 30 capsule 0 No facility-administered encounter medications on file as of 10/05/2024. Subjective: Pain: moderate Duration: 2 years Objective: Tooth: #3 and #4 Radiographs Taken: BW(s) and PA(s) Radiographic Findings: No abnormal findings observed, dental plaque and B hardened calculus noticed Endo Testing: Cold: Hypersensitive, non-lingering Percussion: Normal, no pain Palpation: Normal, nopain Perio: dental plaque and calculus Diagnosis: cold sensitivity Assessment/Plan: Referred for JACOB and PAD + perio eval GLUMA applied today, pt would lie to continue dental treatment, will return for dental exam in order to address all dental and oral conditions present. Pt tolerated procedure well, all questions answered. Dismissed in good condition. NV: Dental Exam and PAD and perio eval Birthing Nurse: Sil Evans Dentist: Eugenia Flynn DDS documented in this encounter Plan of Treatment Upcoming Encounters Date Type Department Care Team (Late st Contact Info) Description 11/10/2024 2:30 PM EDT Office Visit [facility] [address] [place] [address] Eugenia Flynn DDS [address] [place] [address] Scheduled Orders Name Type Priority Associated Diagnoses Orde r Schedule COMPREHENSIVE ORAL EVALUATION - NEW OR ESTABLISHED PATIENT Dental Routine 1 Occurrence s starting 10/05/2024 PROPHYLAXIS - ADULT Dental Routine 1 Occ urrences starting 10/05/2024 documented as of this encounter Procedures Procedure Name Priority Date/Time Associated Diagnosis Comments LIMITED ORAL EVALUATION - PROBLEM FOCUSED Routine 10/05/2024 3:30 PM EST Tooth sensitivity to cold INTRAORAL - PERIAPICAL FIRST RADIOGRAPHIC IMAGE Routine 10/05/2024 3:30 PM EST Tooth sensitivity to cold CASE PRESENTATION, DETAILED AND EXTENSIVE TREATMENT PLANNING Routine 10/05/2024 3:30 PM EST Tooth sensitivity to cold BITEWING - SINGLE RADIOGRAPHIC IMAGE Routine 10/05/2024 3:30 PM EST Tooth sensitivity to cold documented in this encounter Visit Diagnoses Diagnosis Tooth sensitivity to cold- Primary documented in this encounter Additional Health Concerns Assessment Noted Time PHQ-9 Depression Total Score: 24 024 11:43 AM EST documented as of this encounter Care Teams Agricultural Plow Operator Relationship Specialty Start Date End Date Gris Pang ANP [address] [place] [id number] PCP - General Family Medicine 07/26/20 documented as of this encounter
--- OUTSIDE RECORDS SUMMARY | 2024-10-20 21:42 | XMS_ITS | Encounter Summary ---
Author Organization [employer] Address [address] [facility] [address] [place] [address] Care Team Providers Care Plant Pathology Teacher Name Role Phone Gris Pang Primary Care Provider [phone] Reason for Visit * Reason Comments Med Refill Encounter Details Date Type Department Care Team (Late st Contact Info) Description 10/20/2024 Refill [facility] [address] [place], [place] [phone] Gris Pnag ANP [address] [place], [place] [phone] Social History Tobacco Use Types Packs/Day Years [...] Answer Date Recorded Patient Health Questionnaire-9 Score 15 10/11/2024 Patient Health Questionnaire-9 Score 15 10/11/2024 Last PHQ-9: Questionnaire Data Not on file 0 10/11/2024 Housing Stability Answer Date Recorded What is your housing situation today? I have tremaine purdy 10/07/[address] you li ve. Do you have problems with any of the following? None of the above 10/07/2024 Food Insecurity Answer Date Recorded Within the past 12 months, y ou worried that your food would run out before you got money to buy more: Never True 10/07/2024 Within the past 12 months,th e food you bought just didn't last and you didn't have enough money to get more: Never True Transportation Answer Date Recorded In the past 12 months, has l ack of transportation kept you from medical appts, meetings, work or from getting things needed for daily living? No 10/07/2024 Utilities Answer Date Recorded In the past 12 months, has t he electric, gas, oil or water company threatened to shut off services in your home? No 06/15/2023 Depression Answer Date Recorded Patient Health Questionnaire-2 Score 4 10/11/2024 Internet Access Answer Date Recorded Internet Access Q1 Yes 10/07/2024 Internet Access Q2 Not on file 10/07/2024 Sex and Gender Information Value Date Recorded Sex Assigned at Male 06/10/2022 10:28 AM EDT Legal Sex Male 10:28 AM EDT Gender Identity Male 06/10/2022 10:28 AM EDT Sexual Orientation Straight 06/10/2022 10 :28 AM EDT documented as of this encounter Plan of Treatment Upcoming Encounters Date Type Department Care Team (Late st Contact Info) Description 11/10/2024 2:30 PM EDT Office Visit [facility] [address] [place], [place] [phone] Eugenia Flynn DDS [address] [place] [address] documented as of this encounter Visit Diagnoses Not on filedocumented in this encounter Additional Health Concerns Assessment Noted Time PHQ-9 Depression Total Score: 15 025 9:26 AM EST documented as of this encounter Care Teams Plant Pathology Teacher Relationship Specialty Start Date End Date Gris Pang ANP [address] [place], [place] [phone] PCP - General Family Medicine 07/26/20 documented as of this encounter
--- OUTSIDE RECORDS SUMMARY | 2024-10-20 21:42 | XMS_ITS | Encounter Summary ---
Author Organization [employer] Address [address] [facility] [address] [place] [address] Care Team Providers Care Coffee Brewer Name Role Phone Gris Pang Primary Care Provider [phone] Reason for Visit * Reason Comments Pre-visit Planning Pre-visit planning - LVM Encounter Details Date Type Department Care Team ([facility] st Contact Info) Description 09/24/2024 Patient Outreach [facility] [address], [place] [phone] Gris Pang ANP [address] [place], [place] [phone] Pre-visit Planning (Pre-visit planning - LVM ) Social History Tobacco Use Types Packs/Day Years [...] the past 12 months, has t he [employer], gas, oil or water company threatened to [...] as of this encounter Progress Notes * Mimi Rivas - 09/24/2024 10:45 AM EST MANJIT Morgan placed outbound call to patient to complete pre-visit planning. No answer at this time. Patient name and were not confirmed. CC left voicemail requesting return call. Direct contact information provided. documented in this encounter Plan of Treatment Upcoming Encounters Date Type Department Care Team (Late st Contact Info) Description 11/10/2024 2:30 PM EDT Office Visit [facility] [address] [place] [address] Eugenia Flynn DDS [address] [place] [address] documented as of this encounter Visit Diagnoses Not on filedocumented in this encounter Additional Health Concerns Assessment Noted Time PHQ-9 Depression Total Score: 24 024 11:43 AM EST documented as of this encounter Care Teams Coffee Brewer Relationship Specialty Start Date End Date Gris Pang ANP [address] [place] [address] PCP - General Family Medicine 07/26/20 documented as of this encounter
--- OUTSIDE RECORDS SUMMARY | 2024-10-20 21:42 | XMS_ITS | Encounter Summary ---
Author Organization [employer] Address [address] [facility] [address] [place] [address] Care Team Providers Care Blueprint Reader Name Role Phone Pang Gris ALEMAN Primary Care Provider [phone] Reason for Visit * Reason Comments Med Refill Encounter Details Date Type Department Care Team (Late st Contact Info) Description 12/22/2023 Refill [facility] [address] [place] [address] Rosalba Abdul FNP [address] [place] [address] Acute gout involving toe of right foot, unspecified cause Social History Tobacco Use Types Packs/Day Years [...] Description 11/10/2024 2:30 PM EDT Office Visit [facility] [address] [place] [address] Eugenia Flynn DDS [address] [place] [address] documented as of this encounter Visit Diagnoses Diagnosis Acute gout involving toe of right foot, unspecified cause documented in this encounter Additional Health Concerns Assessment Noted Time PHQ-9 Depression Total Score: 24 024 11:43 AM EST documented as of this encounter Care Teams Blueprint Reader Relationship Specialty Start Date End Date Gris Pang ANP [address] [place] [address] PCP - General Family Medicine 07/26/20 documented as of this encounter
--- OUTSIDE RECORDS SUMMARY | 2024-10-20 21:42 | XMS_ITS | Encounter Summary ---
Author Organization [employer] Address [address] [facility] [address] [place] [address] Care Team Providers Care Diamond Sander Name Role Phone Gris Pang ASH Primary Care Provider [phone] Encounter Details Date Type Department Care Team (Latest Contact Info) Description 10/07/2024 Travel Social History Tobacco Use Types Packs/Day Years [...] Recorded Patient Health Questionnaire-2 Score 6 10/03/2023 Internet Access Answer Date Recorded Internet Access [...] 2:30 PM EDT Office Visit [facility] [address] [place] [address] Eugenia Flynn DDS [address] [place] [address] documented as of this encounter Visit Diagnoses Not on filedocumented in this encounter Additional Health Concerns Assessment Noted Time PHQ-9 Depression Total Score: 24 024 11:43 AM EST documented as of this encounter Care Teams Diamond Sander Relationship Specialty Start Date End Date Gris Pang ANP [address] [place] [address] PCP - General Family Medicine 07/26/20 documented as of this encounter
--- OUTSIDE RECORDS SUMMARY | 2024-10-20 21:42 | XMS_ITS | Clinical Summary ---
Author Organization [employer] Address [address] [facility] 7t [place] [address] Care Team Providers Care Corporate Development Associate Name Role Phone Gris Pang ASH Primary Care Provider [phone] Allergies No known active allergies Medications * This document contains information received from the source organization and may not represent a complete record from that organization. famotidine (Pepcid) 20 MG tablet Take 1 tablet by mouth every 12 (twelve) hours. 11/04/19 21 Active fluticasone (Flonase) 50 MCG/ACT nasal spray Administer 1-2 sprays into affected nostril(s) at bed time. Active ibuprofen 800 MG tablet Take 1 tablet by mouth every 8 (eight) hours. 08/08/20 21 Active lidocaine (Lidoderm) 5 % patch Place 1 patch on the skin at bed time. 01/01/20 22 Active lidocaine (Xylocaine) 5 % ointment Apply topically at bed time. 01/01/20 22 Active loratadine (Claritin) 10 MG tablet Take 1 tablet by mouth at bed time. Active meclizine (Antivert) 25 MG tablet Take 1 tablet by mouth every 8 (eight) hours. 10/29/19 20 Active omeprazole OTC (PriLOSEC OTC) 20 MG EC tablet Take 1 tablet by mouth at bed time. Active gabapentin (Neurontin) 300 MG capsule Take 1 capsule (300 mg) by mouth 3 times daily for 10 days. 30 capsule 12/04/19 24 Active cholecalciferol (Vitamin D-3) 50 MCG (1999 UT) tablet TAKE 1 TABLET BY MOUTH EVERY DAY 90 tablet 1 12/15/19 24 Active acetaminophen (Tylenol) 500 MG tabletIndicatio ns:Acute gout involving toe of right foot, unspecified cause Take 2 tablets (1,000 mg) by mouth every 8 (eight) hours if needed for moderate pain or fever. 100 tablet 1 12/18/19 24 Active folic acid (Folvite) 400 MCG tablet TAKE 1 TABLET BY MOUTH EVERY DAY 90 tablet 3 03/15/20 24 Active lisinopril-hydr oCHLOROthiazide 10-12.5 MG tabletIndicatio ns:Primary hypertension TAKE 1 TABLET BY MOUTH EVERY DAY 90 tablet 2 03/15/20 24 Active amLODIPine (Norvasc) 10 MG tablet TAKE 1 TABLET BY MOUTH EVERY DAY 90 tablet 1 05/11/20 24 Active dicyclomine (Bentyl) 20 MG tablet TAKE 1 TABLET BY MOUTH FOUR TIMES DAILY BEFORE MEALS AND AT BEDTIME 07/30/20 24 Active omeprazole (PriLOSEC) [address] capsule Take 1 capsule by mouth 2 times daily. 09/28/19 25 Active thiamine (Vitamin B-1) 100 MG tabletIndicatio ns:Alcohol use disorder, severe, dependence (CMS/HCC) Take 1 tablet (100 mg) by mouth Once daily. 90 tablet 3 10/07/19 25 Active baclofen (Lioresal) 5 MG tabletIndicatio ns:Muscle spasm TAKE 1 TO 2 TABLETS BY MOUTH THREE TIMES DAILY NEEDED FOR MUSCLE SPASMS 60 tablet 1 10/07/19 25 Active thiamine (Vitamin B-1) 100 MG tablet Take 1 tablet by mouth at bed time. 01/01/20 22 025 Discontinued(R eorder (will not trigger notification to Pharmacy)) baclofen (Lioresal) 5 MG tabletIndicatio ns:Muscle spasm TAKE 1 TO 2 TABLETS BY MOUTH THREE TIMES DAILY NEEDED FOR MUSCLE SPASMS 60 tablet 1 04/21/20 23 025 Discontinued(R eorder (will not trigger notification to Pharmacy)) cyclobenzaprine (Flexeril) 10 MG tabletIndicatio ns:Muscle spasm of shoulder region Take 1 tablet (10 mg) by mouth 3 times daily for 10 days. 30 tablet 05/06/20 24 025 Discontinued(I neffective) Active Problems Problem Noted Date Diagnosed Date Agoraphobia 10/08/2024 Assessment & Plan (10/11/2024 10:02 AM EST): During IBH Consult Italo presenting with excessive worry/anxiety, difficulty controlling worry, anxiety/worry associated to restlessness and/or feeling keyed-up/On edge , easily fatigued , and sleep disturbance difficulty falling asleep, Fear , and marked anxiety about being in enclosed places, being outside of the home alone and being in the car (ex: driving in the highway, carwash, MRI machine) provoking immediate fear, for most part of the time pt avoids situations that might trigger his anxiety, the anxiety is identified as out of proportion to the actual danger and leads to significant impairment in social and interpersonal areas of functioning; for a period of 18+ mo, for most or all symptoms in the context of unable to identify significant stressors. Pt reports experiencing anxiety for about three years now. Phobia is specific and increases when he is in enclosed places. Positive support received by his . Pt is aware of importance of using coping skills and strategies to decrease sxs. clinician engaged patient with active/reflective listening. Reviewed and assessed for risk, current stressors and protective factors using open-ended questions. Practiced breathing exercises and grounding technique during session. Pt will be refer to OP therapy. clinician will provide additional support during next medical appointment. 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 Panic attacks 10/06/2023 Bilateral carpal tunnel syndrome 08/09/2020 Gastroesophageal reflux disease 08/19/2019 Alcoholic fatty liver 07/28/2019 Lumbar radiculopathy 12/22/2018 Assessment & Plan (12/10/2023 5:51 PM EDT): Pt w symptoms of back spasm at this time but w hx of lower back radiculopathy and per pt hx of vertebral hernias Here neuro exam is normal w no concerning features and states his pain is significantly improving from last week -advised to continue lidoderm patches -tylenol prn for mild pain for mod pain but to avoid excess given hx alcohol abuse -to avoid NSAIDS as possible -started yesterday prednisone 40 mg daily that will help as well for pain in back -referred today to PT -pt has f up apt w PCP schedule already for next month -can monitor then Pityriasis versicolor 09/02/2018 Obesity 03/31/2017 Chronic pain of both knees 04/22/2016 Essential hypertension 04/22/2016 Overview (10/02/2023): lisinopril-HCTZ 10-12.5 plus amlodipine 10mg Assessment & Plan (05/06/2024 11:31 AM EDT): Elevated BP today likely due to pain I advise to take his medication every day and f/u with PCP Assessment & Plan (12/10/2023 5:51 PM EDT): -f BP w PCP this month -possible elevated BP now in setting of steroids but advised that once completes steroids to monitor home BP and bring readings to PCP to eval if need BP meds adjustment -continue current BP meds ,states to be complaint Severe episode of recurrent major depressive disorder, without psychotic features 04/21/2016 Overview (11/01/2022): Ovidio Assessment & Plan (10/06/2023 2:41 PM EST): Measurement Tools [Check all that apply and include scores] PHQ9, VLADIMIR-7 PHQ9: 24 GAD7: 21 STAGES OF CHANGE PREPARATION PLAN: (check all that apply) Behavioral Health Integration Plan Internal Follow up with [facility] Patient Self Plan [facility] and Patient to reach out to [facility] as needed Rule Out Diagnoses n/a Behavioral Health Diagnoses At this time Italo meets criteria for Visit Diagnoses: Problem List Items Addressed This Visit Other Severe episode of recurrent major depressive disorder, without psychotic features (CMS/HCC) Alcohol use disorder, severe, dependence (CMS/HCC) VLADIMIR (generalized anxiety disorder) Specific phobia Panic attacks Bilateral low back pain without sciatica 016 Bursitis of right shoulder 09/28/2015 Sleep apnea 09/28/2015 Overview (11/01/2022): 2015 home sleep study Encounters * This document contains information received from the source organization and may not represent a complete record from that organization. Date Type Department Care Team Description 10/20/2024 Refill [facility] MEDICINE [address] [place] [phone] Gris Pang ANP 10/14/2024 Outside Procedure [facility] OPTOMETRY [address] [place] [phone] DarynMauricio lemonn, OD Presbyopia (Primary Dx) 10/13/2024 1:00 PM EST Office Visit [facility] OPTOMETRY [address] [place] [phone] Mauricio Stearnsn, OD Regular astigmatism of both eyes (Primary Dx) 10/07/2024 2:30 PM EST Office Visit [facility] [address] [place] [phone] Gris Pang ANP Alcohol use disorder, severe, dependence (CMS/HCC) (Primary Dx); Muscle spasm of shoulder region; Muscle spasm; KERRI (obstructive sleep apnea); Anxiety; Class 2 severe obesity with serious comorbidity and body mass index (BMI) of 38.0 to 38.9 in adult, unspecified obesity type (CMS/HCC); Essential hypertension; Fatigue, unspecified type; Bilateral carpal tunnel syndrome 10/07/2024 Travel 10/05/2024 3:30 PM EST Office Visit [facility] ADULT DENTAL [address] [place] [phone] Spring-Ma , Eugenia, DDS Tooth sensitivity to cold (Primary Dx) 10/04/2024 Telephone [facility] [address] [place] [place] [phone] Gris Pang ANP Chart Prep 09/24/2024 Patient Outreach [address] [phone] Gris Pang ANP Pre-visit Planning (Pre-visit planning - LVM ) 09/06/2024 2:30 PM EST Office Visit [facility] OPTOMETRY [address] [place], [place] [phone] Daryn, Yvrose, OD Pterygium of left eye (Primary Dx); Presbyopia 09/06/2024 Travel 08/09/2024 Telephone [facility] [address] [place], [place] [phone] Delaney Antonio, [place] September recall 07/29/2024 Telephone [facility] [address] [place] [address] Gris Pang ANP Med Refill from Last 3 Months Immunizations Name Administration Dates Next Due Hep B, adult 11/04/2023,10/02/2023 Influenza injectable quadrivalent preservative f ree 08/02/2021 Tdap 06/06/2017 Family History Medical History Relation Name Comments Hypertension Father Arthritis Mother Relation Name Status Comments Father Mother Social History Tobacco Use Types Packs/Day Years Used Date Smoking Tobacco: Never Smokeless Tobacco: Never Tobacco Cessation:Counseling Given: Not Answered Alcohol Use Standard Drinks/Week Comments Yes 0 [...] Orientation Straight 06/10/2022 10 :28 AM EDT Last Filed Vital Signs Vital Sign Reading Time Taken Comments Blood Pressure 137/79 10/07/2024 2:28 PM EST Pulse 104 10/07/2024 2:28 PM EST Temperature 37.1 ??C (98.8 ??F) 10/07/2024 2:28 PM ES T Respiratory Rate 14 10/07/2024 2:28 PM EST Oxygen Saturation 98% 10/07/2024 2:28 PM EST Inhaled Oxygen Concentration - - Weight 94.3 kg (208 lb) 10/07/2024 2:28 PM EST Height 157.5 cm (5' 2 ) 05/06/2024 8:43 AM EDT Body Mass Index 38.04 05/06/2024 8:43 AM EDT Plan of Treatment Upcoming Encounters Date Type Department Care Team (Late st Contact Info) Description 11/10/2024 2:30 PM EDT Office Visit [facility] ADULT DENTAL [address] [place] [address] Eugenia Flynn, ANGEL [address] [place] [address] Health Maintenance Due Date Last Done Comments CT Colonography 1977 Colonoscopy 1977 Colorectal Cancer Screening 1977 Dental Oral Exam 1977 Dental Prophylaxis 1977 Dental X-Ray: Full Mouth 1977 FIT DNA/Cologuard 1977 FIT 1977 FOBT 1977 Sigmoidoscopy 1977 Family Planning (PISQ) 1992 Hepatitis A Vaccines (1 of 2 - Risk 2-dose series) 1996 Hepatitis B Vaccines (3 of 3 - 19+ 3-dose series) 04/01/2024 11/04/2023, 10/02/2023 COVID-19 Vaccine ( - season) 2024 07/03/2021, 12/06/2020, 11/08/2020 Influenza Vaccine (#1) 2024 08/02/2021 SDOH Screening 10/02/2024 10/02/2023 Depression Monitoring (PHQ-9) 04/13/2025 10/11/2024, 10/11/2024 Dental X-Ray: Bitewings 10/06/2025 10/05/2024, 11/08 Alcohol/Substance Use Screening 10/07/2025 10/07/2024 Tobacco Screening 10/07/2025 10/07/2024 Depression Screening 10/11/2025 10/11/2024, 10/12/19 25 Lipid Panel 12/31/2026 12/31/2021 Zoster Vaccines (1 of 2) 2027 DTaP/Tdap/Td Vaccines (2 - Td or Tdap) 06/06/2027 06/06/2017 RSV Patients and Patients Aged 60 years or older (1 - 1-dose 75+ series) 2052 HIV Screening Completed 10/21/2023, 12/31/2021 Hepatitis C Screening Completed 10/21/2023 , 12/31/2021, 07/09/2019, Additional history exists HIB Vaccines Aged Out No longer eligi ble based on patient's age to complete this topic HPV Vaccines Aged Out No longer eligi ble based on patient's age to complete this topic IPV Vaccines Aged Out No longer eligi ble based on patient's age to complete this topic Meningococcal Vaccine Aged Out No chance shellie eligible based on patient's age to complete this topic Pneumococcal Vaccine: Pediatrics (0 to 5 Years) and At-Risk Patients (6 to 49) Years) Aged Out No longer eligible based on patient's age to complete this topic RSV under 20 months Aged Out No longe r eligible based on patient's age to complete this topic Rotavirus Vaccines Aged Out No longer eligible based on patient's age to complete this topic Procedures Procedure Name Priority Date/Time Associated Diagnosis Comments CASE PRESENTATION, DETAILED AND EXTENSIVE TREATMENT PLANNING Routine 10/05/2024 3:30 PM EST Tooth sensitivity to cold BITEWING - SINGLE RADIOGRAPHIC IMAGE Routine 10/05/2024 3:30 PM EST Tooth sensitivity to cold INTRAORAL - PERIAPICAL FIRST RADIOGRAPHIC IMAGE Routine 10/05/2024 3:30 PM EST Tooth sensitivity to cold LIMITED ORAL EVALUATION - PROBLEM FOCUSED Routine 10/05/2024 3:30 PM EST Tooth sensitivity to cold HEPATITIS C AB W/REFL TO HCV RNA, QN, PCR Routine 10/21/2023 8:48 AM EDT Alcohol use disorder, severe, dependence (CMS/HCC) HIV 1/2 ANTIGEN/ANTIBODY, FOURTH GENERATION W/RFL Routine 10/21/2023 8:48 AM EDT Alcohol use disorder, severe, dependence (CMS/HCC) LIPID PANEL, STANDARD Routine 12/31/2021 1:34 PM EDT from Last 3 Months or Most Recently Relevant to Health Maintenance Results * Hepatitis C Antibody with Reflex to HCV, RNA, Quantitative, Real-Time PCR (10/21/2023 8:48 AM EDT) Hepatitis C Antibody Nonreactive Nonreactive [facility] Comment:Antibodies to HCV no t detected; does not exclude early acuteHCV infection. Blood Venous blood specimen / Unknown 10/21/2023 8:48 AM EDT 10/21/2023 11:06 AM EDT us Gerson Key MD LAB BLOOD ORDERABLES Final Resul t [facility] [address] [place] [address] [phone] * HIV-1/2 Antigen and Antibodies, Fourth Generation, with Reflexes (10/21/2023 8:48 AM EDT) HIV AB/AG Nonreactive Nonreactive [facility] Comment:HIV-1 p24 Ag and/or HIV-1/HIV-2 Ab not detected.A test result that is nonreactive does not exclude thepossibility of exposure to or infection with HIV-1 and/orHIV-2. Nonreactive results in this assay for individualswith prior exposure to HIV-1 and/or HIV-2 may be due toantigen and antibody levels that are below the limit ofdetection of this assay.The [employer] HIV Ag/Ab Combo assay result andsupplemental assay results should be interpreted inconjunction with the patient's clinical presentation,history and other laboratory results. If the results areinconsistent with clinical evidence, additional testing issuggested to confirm the result. Blood Venous blood specimen / Unknown 10/21/2023 8:48 AM EDT 10/21/2023 11:06 AM EDT us Gerson Key MD LAB BLOOD ORDERABLES Final Resul t [facility] [address] [place] [phone] * (ABNORMAL) LIPID PANEL, STANDARD (12/31/2021 1:34 PM EDT) Pathologist [facility] Chol/HDLC Ratio 4.0 <5.0 (calc) [facility] Cholesterol, Total 244(H) <200 mg/dL [facility] HDL Cholesterol 61 > OR = 40 mg/dL [facility] LDL Cholesterol 140(H) mg/dL (calc) [facility] Comment: Reference range: <100 ?? Desirable range <100 mg/dL for primary prevention; ?? <70 mg/dL for patients with CHD or diabetic patients ?? with > or = 2 CHD risk factors. ?? LDL-C is now calculated using the Adam ?? calculation, which is a validated novel method providing ?? better accuracy than the Friedewald equation in the ?? estimation of LDL-C. ?? Leland BAHENA et al. TIERRA. 2013;310(19): 6572-6338 ?? (http://education.[employer].Invenra/faq/WMH800) Non-HDL Cholesterol 183(H) <130 mg/dL (calc) [facility] Comment: For patients with diabetes plus 1 major ASCVD risk ?? factor, treating to a non-HDL-C goal of <100 mg/dL ?? (LDL-C of <70 mg/dL) is considered a therapeutic ?? option. Triglycerides 280(H) <150 mg/dL [facility] Comment: ?? If a non-fasting specimen was collected, consider repeat triglyceride testing on a fasting specimen if clinically indicated. ?? Arsenio et al. J. of Clin. Lipidol. 2015;9:129-169. ?? 12/31/2021 1:34 PM EDT [facility] LAB BLOOD ORDERABLES Final Resul t [facility] [address] from Last 3 Months or Most Recently Relevant to Health Maintenance Insurance [facility] [employer] STAND ADULT Care Teams Corporate Development Associate Relationship Specialty Start Date End Date Gris Pang ANP [address] [place] [phone] PCP - General Family Medicine 07/26/20
--- OUTSIDE RECORDS SUMMARY | 2024-10-20 21:42 | XMS_ITS | Encounter Summary ---
Author Organization [employer] Address [address] [facility] [place] [address] Care Team Providers Care Canal Structure Operator Name Role Phone Poly Gris ALEMAN Primary Care Provider [phone] Encounter Details Date Type Department Care Team (Latest Contact Info) Description 10/14/2024 Outside Procedure [facility] OPTOMETRY [address] [place] [address] Daryn, Yvrose, OD [address] [place] [address] Presbyopia (Primary Dx) Social History Tobacco Use Types [...] as of this encounter Progress Notes * Yvrose Stearns OD - 10/14/2024 12:30 PM EST MH glasses were dispensed, 2 of 2. documented in this encounter Plan of Treatment Upcoming Encounters Date Type Department Care Team (Late st Contact Info) Description 11/10/2024 2:30 PM EDT Office Visit [facility] ADULT DENTAL [address] [place] [address] Spring-Ma, Eugenia, DDS [address] [place] [address] documented as of this encounter Visit Diagnoses Diagnosis Presbyopia- Primary documented in this encounter Additional Health Concerns Assessment Noted Time PHQ-9 Depression Total Score: 15 025 9:26 AM EST documented as of this encounter Care Teams Canal Structure Operator Relationship Specialty Start Date End Date Gris Pang ANP [address] [place] [address] PCP - General Family Medicine 07/26/20 documented as of this encounter
--- OUTSIDE RECORDS SUMMARY | 2024-10-20 21:42 | XMS_ITS | Encounter Summary ---
Author Organization [employer] Address [address] [facility] [address] [place] [address] Care Team Providers Care Executive Administrative Asst Name Role Phone Gris Pang Primary Care Provider [phone] Reason for Visit * Reason Onset Date Comments Chart Prep 10/04/2024 Encounter Details Date Type Department Care Team ([facility] st Contact Info) Description 10/04/2024 Telephone [facility] MEDICINE [address] [place], [place] [phone] Gris Pang ANP [address] [place], [place] [phone] Chart Prep Social History Tobacco Use Types Packs/Day Years [...] AM EDT documented as of this encounter Miscellaneous Notes * Telephone Encounter - Mary Ann Davey [place] - 10/04/2024 3:47 PM EST Chart Prep Labs: Images: not applicable Vaccines due: Covid Due, Hep A Due, Hep B Due, PCV20 Due, and Flu Due Referrals: Not Applicable Screenings: Colonoscopy Overdue care gaps: Sbirt, SDOH, PHQ-9, and Oral Health documented in this encounter Plan of Treatment Upcoming Encounters Date Type Department Care Team (Late st Contact Info) Description 11/10/2024 2:30 PM EDT Office Visit [facility] ADULT DENTAL [address] [place] [address] Eugenia Flynn, DDS [address] [place] [address] documented as of this encounter Visit Diagnoses Not on filedocumented in this encounter Additional Health Concerns Assessment Noted Time PHQ-9 Depression Total Score: 24 024 11:43 AM EST documented as of this encounter Care Teams Executive Administrative Asst Relationship Specialty Start Date End Date Gris Pang ANP [address] [place] [address] PCP - General Family Medicine 07/26/20 documented as of this encounter
--- OUTSIDE RECORDS SUMMARY | 2024-10-20 21:42 | XMS_ITS | Encounter Summary ---
Author Organization [employer] Address [address] [facility] [address] [place] [address] Care Team Providers Care Biological Chemist Name Role Phone Poly Gris ALEMAN Primary Care Provider [phone] Encounter Details Date Type Department Care Team (Late st Contact Info) Description 10/13/2024 1:00 PM EST Office Visit [facility] OPTOMETRY [address] [place], [place] [phone] Daryn, Yvrose, OD [address] [place] [address] Regular astigmatism of both eyes (Primary Dx) Social History Tobacco Use Types [...] Progress Notes * Yvrose Stearns OD - 10/13/2024 1:00 PM EST MH glasses were dispensed, 1 of 2. documented in this encounter Plan of Treatment Upcoming Encounters Date Type Department Care Team (Late st Contact Info) Description 11/10/2024 2:30 PM EDT Office Visit [facility] ADULT DENTAL [address] [place] [address] Eugenia Flynn, DDS [address] [place] [address] documented as of this encounter Visit Diagnoses Diagnosis Regular astigmatism of both eyes- Primary documented in this encounter Additional Health Concerns Assessment Noted Time PHQ-9 Depression Total Score: 15 025 9:26 AM EST documented as of this encounter Care Teams Biological Chemist Relationship Specialty Start Date End Date Gris Pang ANP [address] [place] [address] PCP - General Family Medicine 07/26/20 documented as of this encounter
--- OUTSIDE RECORDS SUMMARY | 2024-10-20 21:42 | XMS_ITS | Encounter Summary ---
Author Organization [facility] Address [address] [place] [address] 7[address] [place] [address] Care Team Providers Care Central Office Supervisor Name Role Phone Gris Pang Primary Care Provider [phone] Reason for Referral * Neurology (Routine) - Authorized Specialty Diagnoses / Procedures Referred By Carlos morgan Referred To Contact Diagnoses Bilateral carpal tunnel syndrome Procedures Nerve conduction test Gris Pang ANP [address] [place] [address] Phone: tel: fax: [address] Phone: tel: fax: Referral ID Status Reason Start Date Expiration Date V isits Requested Visits Authorized [id number] Authorized 10/07/2024 10/07/2025 1 1 * Hospital - Outpatient (Routine) - Closed Specialty Diagnoses / Procedures Referred By Carlos morgan Referred To Contact Diagnoses KERRI (obstructive sleep apnea) Procedures Polysomnography Gris Pang ANP [address] [place] [address] Phone: tel: fax: [address] Phone: tel: fax: Referral ID Status Reason Start Date Expiration Date Visits Re quested Visits Authorized [id number] Closed 10/07/2024 10/07/2025 1 1 Reason for Visit * Reason Comments Annual Exam Encounter Details Date Type Department Care Team (Late st Contact Info) Description 10/07/2024 2:30 PM EST Office Visit [facility] MEDICINE [address] [place] [address] Gris Pang ANP [address] [place] [address] Alcohol use disorder, severe, dependence (CMS/HCC) (Primary Dx); Muscle spasm of shoulder region; Muscle spasm; KERRI (obstructive sleep apnea); Anxiety; Class 2 severe obesity with serious comorbidity and body mass index (BMI) of 38.0 to 38.9 in adult, unspecified obesity type (CMS/HCC); Essential hypertension; Fatigue, unspecified type; Bilateral carpal tunnel syndrome Social History Tobacco Use Types Packs/Day Years [...] AM EDT documented as of this encounter Last Filed Vital Signs Vital Sign Reading Time Taken Comments Blood Pressure 137/79 10/07/2024 2:28 PM EST Pulse 104 10/07/2024 2:28 PM EST Temperature 37.1 ??C (98.8 ??F) 10/07/2024 2:28 PM ES T Respiratory Rate 14 10/07/2024 2:28 PM EST Oxygen Saturation 98% 10/07/2024 2:28 PM EST Inhaled Oxygen Concentration - - Weight 94.3 kg (208 lb) 10/07/2024 2:28 PM EST Height - - Body Mass Index 38.04 05/06/2024 8:43 AM EDT documented in this encounter Plan of Treatment Upcoming Encounters Date Type Department Care Team (Late st Contact Info) Description 11/10/2024 2:30 PM EDT Office Visit [facility] ADULT DENTAL [address] [place] [address] Spring-Ma, Eugenia, DDS [address] [place] [address] Scheduled Orders Name Type Priority Associated Diagnoses Orde r Schedule Polysomnography Sleep Center Routine KERRI (obstructive sleep apnea) Expected: 10/07/2024 (Approximate), Expires: 10/07/2025 Lipid Panel, Standard Lab Routine Class 2 severe obesity with serious comorbidity and body mass index (BMI) of 38.0 to 38.9 in adult, unspecified obesity type (CMS/HCC) Expected: 10/07/2024 (Approximate), Expires: 10/07/2025 Hepatic Function Panel Lab Routine Class 2 severe obesity with serious comorbidity and body mass index (BMI) of 38.0 to 38.9 in adult, unspecified obesity type (CMS/HCC) Expected: 10/07/2024 (Approximate), Expires: 10/07/2025 Albumin, Random Urine W/Creatinine Lab Routine Essential hypertension Expected: 10/07/2024 (Approximate), Expires: 10/07/2025 Basic Metabolic Panel Lab Routine Essential hypertension Expected: 10/07/2024 (Approximate), Expires: 10/07/2025 Hemoglobin A1c Lab Routine Class 2 severe obesity with serious comorbidity and body mass index (BMI) of 38.0 to 38.9 in adult, unspecified obesity type (CMS/HCC) Expected: 10/07/2024 (Approximate), Expires: 10/07/2025 Hemoglobin and Hematocrit Lab Routine KERRI (obstructive sleep apnea) Expected: 10/07/2024, Expires: 10/07/2025 TSH W/Reflex to FT4 Lab Routine Fatigue, unspecified type Expected: 10/07/2024 (Approximate), Expires: 10/07/2025 Nerve conduction test Neurology Routine Bilateral carpal tunnel syndrome Expected: 10/07/2024 (Approximate), Expires: 10/07/2025 documented as of this encounter Visit Diagnoses Diagnosis Alcohol use disorder, severe, dependence (CMS/HCC)- Primary Muscle spasm of shoulder region Muscle spasm Spasm of muscle KERRI (obstructive sleep apnea) Obstructive sleep apnea (adult) (pediatric) Anxiety Anxiety state, unspecified Class 2 severe obesity with serious comorbidity and body mass index (BMI) of 38.0 to 38.9 in adult, unspecified obesity type (CMS/HCC) Essential hypertension Unspecified essential hypertension Fatigue, unspecified type Bilateral carpal tunnel syndrome Carpal tunnel syndrome documented in this encounter Additional Health Concerns Assessment Noted Time PHQ-9 Depression Total Score: 24 024 11:43 AM EST documented as of this encounter Care Teams Central Office Supervisor Relationship Specialty Start Date End Date Gris Pang ANP [address] [place] [id number] PCP - General Family Medicine 07/26/20 documented as of this encounter
--- OUTSIDE RECORDS SUMMARY | 2024-10-20 21:42 | XMS_ITS | Encounter Summary ---
Author Organization [employer] Address [address] [address] [facility] [address] 7[address] [place] [address] Care Team Providers Care Steel Division Supervisor Name Role Phone Gris Pang ASH Primary Care Provider [phone] Reason for Visit * Reason Comments Med Refill Encounter Details Date Type Department Care Team (Late st Contact Info) Description 11/04/2022 Refill [facility] WALK[facility]IN [facility] [address] [place] [address] Fannie Norwood MD [address] [place] [address] Adhesive capsulitis of right shoulder Social History Tobacco Use Types Packs/Day Years Used Date Smoking Tobacco: Never Smokeless Tobacco: Never Alcohol Use Standard Drinks/Week Comments Yes 0 (1 standard drink = 0.6 oz pur e alcohol) Depression Answer Date Recorded Patient Health Questionnaire-9 Score 0 11/01/2022 Depression Answer Date Recorded Patient Health Questionnaire-2 Score 0 11/01/2022 Sex and Gender Information Value Date Recorded Sex Assigned at Male 06/10/2022 10:28 AM EDT Legal Sex Male 10:28 AM EDT Gender Identity Male 06/10/2022 10:28 AM EDT Sexual Orientation Straight 06/10/2022 10 :28 AM EDT COVID-19 Exposure Response Date Recorded In the last 10 days, have yo u been in contact with someone who was confirmed or suspected to have Coronavirus/COVID-19? No / Unsure 11/01/2022 9:18 AM EDT documented as of this encounter Plan of Treatment Upcoming Encounters Date Type Department Care Team (Late st Contact Info) Description 11/10/2024 2:30 PM EDT Office Visit [facility] ADULT DENTAL [address] [place] [address] Eugenia Flynn, JAYJAYS [address] [place] [address] documented as of this encounter Visit Diagnoses Diagnosis Adhesive capsulitis of right shoulder documented in this encounter Additional Health Concerns Assessment Noted Time PHQ-9 Depression Total Score: 0 11/02/19 23 9:31 AM EDT documented as of this encounter Care Teams Steel Division Supervisor Relationship Specialty Start Date End Date Gris Pang ANP [address] [place] [address] PCP - General Family Medicine 07/26/20 documented as of this encounter
== END ==
LOC: HO.SL 19:30
PROVIDERS: PCP Nurse Practitioner Primary Care; Visit Provider Nurse Practitioner Primary Care
DX: Z13.89 Encounter for screening for other disorder (principal)

== ENCOUNTER 2024-12-21 09:15 | Outpatient (REF) | payer MEDICAID, SELFPAY ==
--- NOTE | 2024-12-21 09:20 | EMG_ITS ---
Bilateral median and ulnar motor and sensory studies were performed. Bilateral radial sensory study was performed, bilateral median and lateral antecubital brachial sensory studies were performed, and paraspinal muscles were tested with a needle. IMPRESSION: 1. [id number] bilateral median neuropathy across carpal tunnel. 2. Mild to moderate bilateral ulnar neuropathy affecting sensory and motor components. MD JANNIE Perez/LONG / [id number]
--- OUTSIDE RECORDS SUMMARY | 2024-12-21 09:43 | XMS_ITS | Encounter Summary ---
Author Organization [employer] [facility] Address [address] [place] [address] 7t [place] [address] Care Team Providers Care Automation Engineering Technician Name Role Phone rGis Pang Primary Care Provider Encounter Details Date Type Department Care Team (Latest Contact Info) Description 12/11/2020 Abstract [facility] CONVERSIONS Dental, Provider, DDS Social History Tobacco [...] Care Team (Late st Contact Info) Description 02/09/2025 3:15 PM EDT Office Visit [facility] MEDICINE [address] [place] [address] Gris Pang ANP [address] [place] [address] 04/13/2025 3:00 PM EDT Office Visit [facility] ADULT DENTAL [address] [place] [address] Amelia Rodriguez documented as of this encounter Visit Diagnoses Not on filedocumented in this encounter Care Teams Automation Engineering Technician Relationship Specialty Start Date End Date Gris Pang ANP [address] [place] [address] PCP - General Family Medicine 07/26/20 documented as of this encounter
--- OUTSIDE RECORDS SUMMARY | 2024-12-21 09:43 | XMS_ITS | Clinical Summary ---
Author Organization [email or web address] [facility] Address [address] [place] [address] Care Team Providers Care Pile Driver Engineer Name Role Phone Unavailable Primary Care Provider Unavailabl e Social History Tobacco Use Types Packs/Day Years Used Date Smoking Tobacco: Never Assessed Sex and Gender Information Value Date Recorded Sex Assigned at Not on file Legal Sex Male 4:32 AM EST Gender Identity Not on file Sexual Orientation Not on file Plan of Treatment Health Maintenance Due Date Last Done Comments DTaP,Tdap,and Td Vaccines (1 - Tdap) 1996 Hepatitis B Vaccines (1 of 3 - 19+ 3-dose series) 1996 Cholesterol Screening (Lipid Panel) 04/05/2024 Colorectal Cancer Screening: Colonoscopy 04/05/2024 Depression Screening 04/05/2024 HIV Screening 04/05/2024 Hepatitis C Screening 04/05/2024 Social Influencers of Health Screening 04/05/2024 COVID-19 Vaccine (2023-2 5 season) 2024 Influenza Vaccine (Season Ended) 2025 HIB Vaccines Aged Out No longer eligi ble based on patient's age to complete this topic HPV Vaccines Aged Out No longer eligi ble based on patient's age to complete this topic Hepatitis A Vaccines Aged Out No long er eligible based on patient's age to complete this topic IPV Vaccines Aged Out No longer eligi ble based on patient's age to complete this topic MMR Vaccines Aged Out No longer eligi ble based on patient's age to complete this topic Meningococcal ACWY Vaccine Aged Out N o longer eligible based on patient's age to complete this topic Meningococcal B Vaccine Aged Out No l onger eligible based on patient's age to complete this topic Pneumococcal Vaccine: Pediat rics (0 to 5 Years) and At-Risk Patients (6 to 64 Years) Aged Out No longer eligible b ased on patient's age to complete this topic RSV Immunization Patients Un emy 20 months Aged Out No longer eligible b ased on patient's age to complete this topic Varicella Vaccines Aged Out No longer eligible based on patient's age to complete this topic
--- OUTSIDE RECORDS SUMMARY | 2024-12-21 09:43 | XMS_ITS | Encounter Summary ---
Author Organization [employer] Address [address] [facility] 7t [place] [address] Care Team Providers Care Autocad Technician Name Role Phone Poly Gris ALEMAN Primary Care Provider [phone] Reason for Visit * Reason Comments Med Refill Encounter Details Date Type Department Care Team ([facility] st Contact Info) Description 12/18/2023 Refill [facility] WALK[facility]IN CENTER [address] [place] [address] [phone] Constantine Tilley MD [address] [place], [place] [phone] Social History Tobacco Use Types Packs/Day Years [...] Description 02/09/2025 3:15 PM EDT Office Visit [facility] MEDICINE [address] [place] [address] Gris Pang ANP [address] [place] [address] 04/13/2025 3:00 PM EDT Office Visit [facility] ADULT DENTAL [address] [place] [address] Amelia Rodriguez documented as of this encounter Visit Diagnoses Not on filedocumented in this encounter Additional Health Concerns Assessment Noted Time PHQ-9 Depression Total Score: 24 024 11:43 AM EST documented as of this encounter Care Teams Autocad Technician Relationship Specialty Start Date End Date Gris Pang ANP [address] [place] [address] PCP - General Family Medicine 07/26/20 documented as of this encounter
--- OUTSIDE RECORDS SUMMARY | 2024-12-21 09:44 | XMS_ITS | Encounter Summary ---
Author Organization [employer] Address [address] [facility] [address] 7t [place] [address] Care Team Providers Care Assistant Merchandiser Name Role Phone Gris Pang ASH Primary Care Provider [phone] Reason for Visit * Reason Comments Med Refill Encounter Details Date Type Department Care Team (Late st Contact Info) Description 11/04/2022 Refill [facility] WALK[facility]IN CENTER [address] [place] [address] Fannie Norwood MD [address] [place] [address] Adhesive capsulitis of right shoulder Social History [...] Description 02/09/2025 3:15 PM EDT Office Visit [facility] MEDICINE [address] [place] [address] Gris Pang ANP [address] [place] [address] 04/13/2025 3:00 PM EDT Office Visit [facility] ADULT DENTAL [address] [place] [address] Amelia Rodriguez documented as of this encounter Visit Diagnoses Diagnosis Adhesive capsulitis of right shoulder documented in this encounter Additional Health Concerns Assessment Noted Time PHQ-9 Depression Total Score: 0 11/02/19 23 9:31 AM EDT documented as of this encounter Care Teams Assistant Merchandiser Relationship Specialty Start Date End Date Gris Pang ANP [address] [place] [phone] PCP - General Family Medicine 07/26/20 documented as of this encounter
--- OUTSIDE RECORDS SUMMARY | 2024-12-21 09:44 | XMS_ITS | Encounter Summary ---
Author Organization [employer] Address [address] [place] [address] Care Team Providers Care Corporate Recruiter Name Role Phone Poly Gris ALEMAN Primary Care Provider [phone] Reason for Visit * Reason Comments Extraction Tooth #3 Encounter Details Date Type Department Care Team (Late st Contact Info) Description 12/20/2024 10:00 AM EDT Office Visit [facility] ADULT DENTAL [address] [place], [place] [phone] Rikki Vyas DDS [address] [place] [address] Open fracture of tooth, sequela (Primary Dx) Social History Tobacco Use Types [...] the past 12 months, has t he [employer], gas, oil or [employer] threatened to shut off services in your [...] Sign Reading Time Taken Comments Blood Pressure 124/64 12/20/2024 9:58 AM EDT Pulse 76 12/20/2024 9:58 AM EDT Temperature - - Respiratory Rate - - Oxygen Saturation - - Inhaled Oxygen Concentration - - Weight - - Height - - Body Mass Index - - documented in this encounter Progress Notes * Rikki Vyas, ANGEL - 12/20/2024 10:00 AM EDT Patient ID: Italo Garcia is a 49 y.o. male. Time Out: Timeout Date: 12/20/24, Timeout Time: 1001 (Dental Extraction #3) Location: [facility] Tooth: Maxilla and #3 Procedure: Extraction Verified the above with patient, printing assistant, and provider. Confirmed via patient's chart, intraorally and by radiographs. Irb Compliance Coordinator: not applicable Chief Complaint Patient presents with Extraction Tooth #3 Medical Hx: Vitals: Blood pressure 124/64, pulse 76. Past Medical History: Diagnosis Date Alcoholic fatty liver Bilateral carpal tunnel syndrome 08/09/2020 Claustrophobia GERD (gastroesophageal reflux disease) Hypertension Palpitations Sleep apnea 09/28/2015 2015 home sleep study Vitamin D deficiency Medications: Outpatient Encounter Medications as of 12/20/2024 Medication Sig Dispense Refill Acetaminophen Extra Strength 500 MG tablet TAKE 2 TABLETS BY MOUTH EVERY 8 HOURS NEEDED FOR PAINOR FEVER 100 tablet 1 amLODIPine (Norvasc) 10 MG tablet TAKE 1 TABLET BY MOUTH EVERY DAY 90 tablet 1 amoxicillin (Amoxil) 500 MG capsule Take 1 capsule (500 mg) by mouth every 8 (eight) hours for 7 days. 21 capsule 0 baclofen (Lioresal) 5 MG tablet TAKE 1 [...] time. folic acid (Folvite) 400 MCG tablet Take 1 tablet (400 mcg) by mouth Once per day. 90 tablet 3 ibuprofen 800 MG tablet Take 1 tablet (800 mg) by mouth every 8 (eight) hours if needed for mild pain for up to 10 days. 15 tablet 0 lidocaine (Lidoderm) 5 % patch Place 1 patch on the skin at bed time. lidocaine (Xylocaine) 5 % ointment Apply topically at bed time. lisinopril-hydroCHLOROthiazide 10-12.5 MG tablet TAKE 1 TABLET BY MOUTH EVERY DAY 90 tablet 0 loratadine (Claritin) 10 MG tablet Take 1 [...] B-1) 100 MG tablet Take 1 tablet (100 mg) by mouth Once daily. 90 tablet 3 gabapentin (Neurontin) 300 MG capsule Take 1 capsule (300 mg) by mouth 3 times daily for 10 days. 30 capsule 0 ibuprofen 800 MG tablet Take 1 tablet by mouth every 8 (eight) hours. (Patient not taking: Reportedon 12/20/2024) No facility-administered encounter medications on file as of 12/20/2024. Consent Obtained: The risks, benefits, indications, potential complications, and alternatives were explained to the patient and informed consent was obtained with good understanding. Treatment Provided: Dental procedures in this visit [id number] - EXTRACTION, ERUPTED TOOTH REQ REMOVAL OF BONE AND/OR SECTIONING OF TOOTH 3 (Completed) Service provider: Rikki Vyas DDS Billing provider: Rikki Vyas DDS [id number] - CASE PRESENTATION, DETAILED AND EXTENSIVE TREATMENT PLANNING (Completed) Service provider: Rikki Vyas DDS Billing provider: Rikki Vyas DDS Diagnosis: Fractured molar sequela Topical: 20% Benzocaine Anesthesia: 2% Lidocaine (Xylocaine) w/ 1:100,000 epinephrine Number of Cartridges: 3 Injection Type: Buccal infiltration, Palatal infiltration, and Intrapapillary injection Confirmed profound anesthesia. Pharyngeal curtain and bite block placed. Removed tooth with elevators and forceps. Apices intact. Surgical Extraction: Yes, sectioned tooth with surgical handpiece and bur # [id number] L Socket curetted & irrigated with sterile water. Compressed alveolar bone. Sutures: None Needed All adjacent teeth intact. Hemostasis achieved. Complications: None. Difficult extraction, hard to get it numb, palatine fractured root, difficult to extract . Pt tolerated procedure well. Pt stated having analgesics at home. Written and verbal post-op instructions given. Patient discharged in stable condition; ambulatory, alert, and oriented. NV: F/U as needed / referred back to Dr. Ma Production Artist: Anuradha Dentist: Rikki Vyas DDS documented in this encounter Plan of Treatment Upcoming Encounters Date Type Department Care Team (Late st Contact Info) Description 02/09/2025 3:15 PM EDT Office Visit [facility] MEDICINE [address] [place] [address] Gris Pang ANP [address] [place], [place] [phone] 04/13/2025 3:00 PM EDT Office Visit [facility] ADULT DENTAL [address] [place] [address] Amelia Rodriguez documented as of this encounter Procedures Procedure Name Priority Date/Time Associated Diagnosis Comments 3 EXTRACTION, ERUPTED TOOTH REQ REMOVAL OF BONE AND/OR SECTIONING OF TOOTH Routine 12/20/2024 10:00 AM EDT CASE PRESENTATION, DETAILED AND EXTENSIVE TREATMENT PLANNING Routine 12/20/2024 10:00 AM EDT documented in this encounter Visit Diagnoses Diagnosis Open fracture of tooth, sequela- Primary documented in this encounter Additional Health Concerns Assessment Noted Time PHQ-9 Depression Total Score: 15 025 9:26 AM EST documented as of this encounter Care Teams Corporate Recruiter Relationship Specialty Start Date End Date Gris Pang ANP [address] [facility] [place] [address] PCP - General Family Medicine 07/26/20 documented as of this encounter
--- OUTSIDE RECORDS SUMMARY | 2024-12-21 09:45 | XMS_ITS | Clinical Summary ---
Author Organization [employer] Address [address] [facility] 7t [place] [address] Care Team Providers Care Cut Off Operator Scorer Name Role Phone Gris Pang ASH Primary Care Provider [phone] Allergies No known active allergies Medications * [...] 24 Active cholecalciferol (Vitamin D-3) 50 MCG (2000 UT) tablet TAKE 1 TABLET BY MOUTH EVERY DAY 90 tablet 1 12/15/19 24 Active dicyclomine (Bentyl) 20 MG tablet TAKE 1 TABLET BY MOUTH FOUR TIMES DAILY BEFORE MEALS AND AT BEDTIME 07/30/20 24 Active omeprazole (PriLOSEC) [address] capsule Take 1 capsule by mouth 2 times daily. 09/28/19 25 Active thiamine (Vitamin B-1) 100 MG tabletIndication s:Alcohol use disorder, severe, dependence (CMS/HCC) Take 1 tablet (100 mg) by mouth Once daily. 90 tablet 3 10/07/19 25 Active amLODIPine (Norvasc) 10 MG tablet TAKE 1 TABLET BY MOUTH EVERY DAY 90 tablet 1 10/22/19 25 Active folic acid (Folvite) 400 MCG tabletIndication s:Alcohol use disorder, severe, dependence (CMS/HCC) Take 1 tablet (400 mcg) by mouth Once per day. 90 tablet 3 10/30/19 25 Active baclofen (Lioresal) 5 MG tabletIndication s:Muscle spasm TAKE 1 TO 2 TABLETS BY MOUTH THREE TIMES DAILY NEEDED FOR MUSCLE SPASMS 60 tablet 1 11/17/19 25 Active Acetaminophen Extra Strength 500 MG tabletIndication s:Acute gout involving toe of right foot, unspecified cause TAKE 2 TABLETS BY MOUTH EVERY 8 HOURS NEEDED FOR PAIN OR FEVER 100 tablet 1 11/23/19 25 Active lisinopril-hydro CHLOROthiazide 10-12.5 MG tabletIndication s:Primary hypertension TAKE 1 TABLET BY MOUTH EVERY DAY 90 tablet 12/10/19 25 Active amoxicillin (Amoxil) 500 MG capsule Take 1 capsule (500 mg) by mouth every 8 (eight) hours for 7 days. 21 capsule 12/16/19 25 025 Active ibuprofen 800 MG tablet Take 1 tablet (800 mg) by mouth every 8 (eight) hours if needed for mild pain for up to 10 days. 15 tablet 12/16/19 25 025 Active acetaminophen (Tylenol) 500 MG tabletIndication s:Acute gout involving toe of right foot, unspecified cause Take 2 tablets (1,000 mg) by mouth every 8 (eight) hours if needed for moderate pain or fever. 100 tablet 1 12/18/19 24 025 Discontinued lisinopril-hydro CHLOROthiazide 10-12.5 MG tabletIndication s:Primary hypertension TAKE 1 TABLET BY MOUTH EVERY DAY 90 tablet 2 03/15/20 24 025 Discontinued Active Problems Problem Noted Date Diagnosed Date Open fracture of tooth 12/20/2024 Sleep disturbances 10/29/2024 Overview (10/29/2024): Images from the original note were not included. Had sleep study, suspected periodic limb movement d/o Agoraphobia 10/08/2024 Assessment & Plan (10/11/2024 10:02 [...] Health Integration Plan Internal Follow up with [facility] Patient Self Plan Patient to reach out to [facility] team as needed and Patient to reach out to [facility] as needed Rule Out Diagnoses n/a Behavioral [...] organization. Date Type Department Care Team Description 12/20/2024 10:00 AM EDT Office Visit [facility]ULT [facility] [address] [place] [address] Rikki Vyas, DDMolly Open fracture of tooth, sequela (Primary Dx) 12/15/2024 9:00 AM EDT Office Visit [facility] [address] [place] [address] Eugenia Flynn, DDS Closed fracture of tooth, initial encounter (Primary Dx) 12/09/2024 Refill [facility] MED[facility] [address] [place] [phone] Gris Pang ANP Primary hypertension 11/22/2024 Refill [facility] [address] [place] [address] Rosalba Abdul, PRODUCTION CELL LEADER Acute gout involving toe of right foot, unspecified cause 11/17/2024 Telephone [facility] [address] [place] [address] Amelia Rodriguez 11/16/2024 Telephone [facility] [address] [place] [phone] Gris Pang ANP RAISA recall 11/15/2024 Refill [facility] [address] [place] [phone] Gris Pang ANP Muscle spasm 11/10/2024 2:30 PM EDT Office Visit [facility] [address] [place] [address] Eugenia Flynn DDS Encounter for dental examination (Primary Dx); Dental calculus; Dental plaque; Tooth sensitivity to cold 11/02/2024 Telephone [facility] [address] [place], [place] [phone] Gris Pang ANP 10/29/2024 Telephone [facility] [address] [place] [phone] Bouchra Meng MA 10/29/2024 Telephone [facility] [address] [place] [phone] Natividad Meng RN Results; Lab Orders 10/22/2024 Population Health Risk Score [facility] () [address] [address] Provider, Population Health Generic 10/20/2024 Refill [facility] [address] [place] [phone] Gris Pang ANP 10/14/2024 Outside Procedure [facility] OPTOMETRY [address] [place] [phone] Mauricio Stearnsn, OD Presbyopia (Primary Dx) 10/13/2024 1:00 PM EST Office Visit [facility] [address] [place] [address] Yvrose Stearns, OD Regular astigmatism of both eyes (Primary Dx) 10/07/2024 2:30 PM EST Office Visit [facility] [address] [place] [address] Gris Pang ANP Alcohol use disorder, severe, dependence (CMS/HCC) (Primary Dx); Muscle spasm of shoulder region; Muscle spasm; KERRI (obstructive sleep apnea); Anxiety; Class 2 severe obesity with serious comorbidity and body mass index (BMI) of 38.0 to 38.9 in adult, unspecified obesity type (CMS/HCC); Essential hypertension; Fatigue, unspecified type; Bilateral carpal tunnel syndrome 10/07/2024 Travel 10/05/2024 3:30 PM EST Office Visit [facility] [address] [place] [address] Spring-Ma, Eugenia, DDS Tooth sensitivity to cold (Primary Dx) 10/04/2024 Telephone [facility] [address] [place] [address] Gris Pang ANP Chart Prep 09/24/2024 Patient Outreach [facility] [address] [place] [address] Gris Pang ANP Pre-visit Planning (Pre-visit planning - LVM ) from Last 3 Months Immunizations Name Administration [...] Pulse 76 12/20/2024 9:58 AM EDT Temperature 37.1 ??C (98.8 ??F) 10/07/2024 2:28 [...] Description 02/09/2025 3:15 PM EDT Office Visit [facility] [address] [place] [address] Gris Pang ANP [address] [place] [address] 04/13/2025 3:00 PM EDT Office Visit [facility] AD[facility] [address] [place] [address] Amelia Rodriguez Health Maintenance Due Date Last Done Comments CT Colonography 1977 Colonoscopy 1977 Colorectal Cancer Screening 1977 Dental Prophylaxis 1977 FIT DNA/Cologuard 1977 FIT 1977 FOBT 1977 Sigmoidoscopy 1977 Family Planning (PISQ) 1992 Hepatitis A Vaccines (1 of 2 - Risk 2-dose series) 1996 Hepatitis B Vaccines (3 of 3 - 19+ 3-dose series) 04/01/2024 11/04/2023, 10/02/2023 COVID-19 Vaccine ( season) 2024 07/03/2021, 12/06/2020, 11/08/2020 Influenza Vaccine (#1) 2024 08/02/2021 SDOH Screening 10/02/2024 10/02/2023 Dental Oral Exam 05/13/2025 11/10/2024 Alcohol/Substance Use Screening 10/07/2025 10/07/2024 Depression Screening 10/11/2025 10/11/2024, 10/12/19 Dental X-Ray: Bitewings 12/16/2025 12/16/19, 11/10/2024, 10/05/2024, Additional history exists Tobacco Screening 12/20/2025 12/20/2024 Lipid Panel 12/31/2026 12/31/2021 Zoster Vaccines (1 of 2) 2027 DTaP/Tdap/Td Vaccines (2 - Td or Tdap) 06/06/2027 06/06/2017 Dental X-Ray: Full Mouth 11/12/2027 11/10/2024 RSV Patients and Patients Aged 60 years [...] TREATMENT PLANNING Routine 12/20/2024 10:00 AM EDT 3 EXTRACTION, ERUPTED TOOTH REQ REMOVAL OF BONE AND/OR SECTIONING OF TOOTH Routine 12/20/2024 10:00 AM EDT CASE PRESENTATION, DETAILED AND EXTENSIVE TREATMENT PLANNING Routine 12/15/2024 9:00 AM EDT Closed fracture of tooth, initial encounter BITEWING - SINGLE RADIOGRAPHIC IMAGE Routine 12/15/2024 9:00 AM EDT Closed fracture of tooth, initial encounter INTRAORAL - PERIAPICAL FIRST RADIOGRAPHIC IMAGE Routine 12/15/2024 9:00 AM EDT Closed fracture of tooth, initial encounter PALLIATIVE (EMERGENCY) TREATMENT OF DENTAL PAIN - MINOR PROCEDURE Routine 12/15/2024 9:00 AM EDT Closed fracture of tooth, initial encounter CASE PRESENTATION, DETAILED AND EXTENSIVE TREATMENT PLANNING Routine 11/10/2024 2:30 PM EDT Encounter for dental examination Dental calculus Dental plaque Tooth sensitivity to cold INTRAORAL - COMPLETE SERIES OF RADIOGRAPHIC IMAGES Routine 11/10/2024 2:30 PM EDT Encounter for dental examination Dental calculus Dental plaque Tooth sensitivity to cold COMPREHENSIVE ORAL EVALUATION - NEW OR ESTABLISHED PATIENT Routine 11/10/2024 2:30 PM EDT Encounter for dental examination Dental calculus Dental plaque Tooth sensitivity to cold POLYSOMNOGRAM Routine 10/20/2024 KERRI (obstructive sleep apnea) CASE PRESENTATION, DETAILED AND EXTENSIVE TREATMENT PLANNING [...] Recently Relevant to Health Maintenance Results * Polysomnography (10/20/2024) [facility] ORDERABLES Final Re sult * Hepatitis C Antibody with Reflex to HCV, RNA, Quantitative, Real-Time PCR (10/21/2023 8:48 AM EDT) Pathologist [facility] Hepatitis C Antibody Nonreactive Nonreactive [facility] Comment:Antibodies to HCV no t detected; does not exclude early acuteHCV infection. Blood Venous blood specimen / Unknown 10/21/2023 8:48 AM EDT 10/21/2023 11:06 AM EDT Gerson Key MD LAB BLOOD ORDERABLES Final Resul t [facility] [address] [place] [phone] * HIV-1/2 Antigen and Antibodies, Fourth Generation, with Reflexes (10/21/2023 8:48 AM EDT) HIV AB/AG Nonreactive Nonreactive [facility] Comment:HIV-1 p24 Ag and/or HIV-1/HIV-2 Ab not detected.A test result that is nonreactive does not exclude thepossibility of exposure to or infection with HIV-1 and/orHIV-2. Nonreactive results in this assay for individualswith prior exposure to HIV-1 and/or HIV-2 may be due toantigen and antibody levels that are below the limit ofdetection of this assay.The Axxana HIV Ag/Ab Combo assay result andsupplemental assay results should be interpreted inconjunction with the patient's clinical presentation,history and other laboratory results. If the results areinconsistent with clinical evidence, additional testing issuggested to confirm the result. Blood Venous blood specimen / Unknown 10/21/2023 8:48 AM EDT 10/21/2023 11:06 AM EDT us Gerson Key MD LAB BLOOD ORDERABLES Final Resul t [facility] [address] [place] [phone] * (ABNORMAL) LIPID PANEL, STANDARD (12/31/2021 1:34 PM EDT) Chol/HDLC Ratio 4.0 <5.0 (calc) [facility] [...] ?? LDL-C is now calculated using the Leland-Franz ?? calculation, which is a validated novel method providing ?? better accuracy than the Friedewald equation in the ?? estimation of LDL-C. ?? Leland BAHENA et al. TIERRA. 2013;310(19): 4383-0129 ?? (http://education.[employer]/faq/KKG667) Non-HDL Cholesterol 183(H) <130 mg/dL (calc) [facility] Comment: For patients with diabetes plus 1 major ASCVD risk ?? factor, treating to a non-HDL-C goal of <100 mg/dL ?? (LDL-C of <70 mg/dL) is considered a therapeutic ?? option. Triglycerides 280(H) <150 mg/dL [facility] Comment: ?? If a non-fasting specimen was collected, consider repeat triglyceride testing on a fasting specimen if clinically indicated. ?? Arsenio et al. J. of Clin. Lipidol. 2015;9:129-169. ?? 12/31/2021 1:34 PM EDT Gris Pang [facility] LAB BLOOD ORDERABLES Final Resul t [facility] [address] [place] [address], from Last 3 Months or Most Recently Relevant to Health Maintenance [place] [address] [address] [address] C3 [facility] MEDICAID STAND ADULT Care Teams Cut Off Operator Scorer Relationship Specialty Start Date End Date Gris Pang ANP [address] [place] [address] PCP - General Family Medicine 07/26/20
--- OUTSIDE RECORDS SUMMARY | 2024-12-21 09:45 | XMS_ITS | Encounter Summary ---
Author Organization [employer] Address [address] [facility] [facility] [address] [place] [address] Care Team Providers Care Sustainable Agriculture Specialist Name Role Phone Poly Gris ALEMAN Primary Care Provider [phone] Reason for Visit * Reason Comments Med Refill Encounter Details Date Type Department Care Team (Late st Contact Info) Description 12/22/2023 Refill [facility] [address] [place] [address] Rosalba Abdul FNP [address] [place] [address] Acute gout involving toe of right foot, [...] Description 02/09/2025 3:15 PM EDT Office Visit [facility] [address] [place] [phone] Gris Pang ANP [address] [place] [address] 04/13/2025 3:00 PM EDT Office Visit [facility] ADULT D[facility] [address] [place] [address] Amelia Rodriguez documented as of this encounter Visit Diagnoses Diagnosis Acute gout involving toe of right foot, unspecified cause documented in this encounter Additional Health Concerns Assessment Noted Time PHQ-9 Depression Total Score: 24 024 11:43 AM EST documented as of this encounter Care Teams Sustainable Agriculture Specialist Relationship Specialty Start Date End Date Gris Pang ANP [address] [place] [address] PCP - General Family Medicine 07/26/20 documented as of this encounter
== END 2024-12-21 09:16 | disposition home or self-care (01) ==
LOC: HO.NEURO 09:15
PROVIDERS: PCP Nurse Practitioner Primary Care; Visit Provider Nurse Practitioner Primary Care
DX: G56.03 Carpal tunnel syndrome, bilateral upper limbs (principal)
CPT/HCPCS: 95886; 95913

== ENCOUNTER 2025-02-09 08:35 | Outpatient (REF) | payer MEDICAID, SELFPAY ==
--- OUTSIDE RECORDS SUMMARY | 2025-02-09 08:39 | XMS_ITS | Clinical Summary ---
Author Organization [employer] [facility] ity Address [address] [place] [address] Care Team Providers Care Malted Milk Masher Name Role Phone Unavailable Primary Care Provider [...]
--- OUTSIDE RECORDS SUMMARY | 2025-02-09 08:39 | XMS_ITS | Clinical Summary ---
Author Organization [facility] Address [address] [place] [address] Care Team Providers Care Cyber Security Architect Name Role Phone Jeff Allen NP Primary Care Provider [phone] Source Comments PLEASE NOTE, if this patient [...] 80 04/22/2016 3:36 PM EDT Temperature 36.8 C (98.3 F) 04/22/2016 3:36 PM EDT Respiratory Rate 20 04/22/2016 3:36 PM EDT Oxygen Saturation 95% 09/28/2015 11:17 AM EST Inhaled Oxygen Concentration - - Weight 89 kg (196 lb 4.8 oz) 04/22/2016 3:36 PM EDT Height 170.2 cm (5' 7 ) 02/19/2016 4:33 PM EDT Body Mass Index 30.74 02/19/2016 4:33 PM EDT Plan of Treatment Not on file Insurance [place] MEDICAID Care Teams Cyber Security Architect Relationship Specialty Start Date End Date Jeff Allen NP [address] [place] [address] PCP - General 06/18/18
--- OUTSIDE RECORDS SUMMARY | 2025-02-09 08:39 | XMS_ITS | Encounter Summary ---
Author Organization [employer] Address [address] [facility] [address]t [place] [address] Care Team Providers Care Account Development Associate Name Role Phone Poly Gris ALEMAN Primary Care Provider [phone] Reason for Visit * Reason Comments Med Refill Encounter Details Date Type Department Care Team ([facility] st Contact Info) Description 12/18/2023 Refill [facility] [address] [place], [place] [phone] Constantine Tilley MD [address] [place], [place] [phone] Social History Tobacco Use Types Packs/Day Years [...] Description 02/09/2025 3:15 PM EDT Office Visit [facility] [address] [place] [address] Gris Pang ANP [address] [place] [address] 04/13/2025 3:00 PM EDT Office Visit [facility] ADULT DENT[facility] [address] [place] [address] Amelia Rodriguez documented as of this encounter Visit Diagnoses Not on filedocumented in this encounter Additional Health Concerns Assessment Noted Time PHQ-9 Depression Total Score: 24 024 11:43 AM EST documented as of this encounter Care Teams Account Development Associate Relationship Specialty Start Date End Date Gris Pang ANP [address] [place] [address] PCP - General Family Medicine 07/26/20 documented as of this encounter
[2025-02-09 11:47] LABS: Hematocrit 43.4 % (42.0-52.0); Hemoglobin 14.0 g/dl (14.0-18.0)
[2025-02-09 11:56] LABS: Hemoglobin A1C 141.5899 umol/L; Total Hemoglobin (HGBA1C) 3595.7129 umol/L
[2025-02-09 12:36] LABS: Alanine Aminotransferase 46 U/L (0-40); Albumin Level 4.6 g/dL (3.5-5.0); Alkaline Phosphatase 102 U/L (39-117); Anion Gap 13 (12-20); Aspartate Amino Transferase 58 U/L (5-37); Blood Urea Nitrogen 12 mg/dL (9-16); Calcium 9.2 mg/dL (8.4-10.2); Carbon Dioxide 26 mmol/L (22-29); Chloride 102 mmol/L (96-108); Cholesterol 206 mg/dL (<200); Estimated Glomerular Filt Rate > 60; HDL Cholesterol 64 mg/dL (>40); Iron 143 mcg/dL (45-160); Percent Iron Saturation 41 % (15-50); Potassium 4.0 mmol/L (3.3-5.1); Sodium 137 mmol/L (135-145); Total Iron Binding Capacity 353 mcg/dL (228-428); Total Protein 7.8 g/dL (6.5-8.0); Triglycerides 217 mg/dL (<150); Unsaturated Iron Binding 210 ug/dL
[2025-02-09 12:40] LABS: Ferritin 41 ng/mL (20-250)
[2025-02-09 12:48] LABS: Folate 16.3 ng/mL (> or = 4.0); Vitamin B12 336 pg/mL (200-900)
[2025-02-09 12:59] LABS: Microalbum/Creatinine Ratio Ur 10.2 ug/mg cr (<30)
== END 2025-02-09 08:36 | disposition home or self-care (01) ==
LOC: HO.HHCL 08:35
PROVIDERS: PCP Nurse Practitioner Primary Care; Visit Provider Nurse Practitioner Primary Care
DX: E66.812 Obesity, class 2 (principal); I10 Essential (primary) hypertension; F10.20 Alcohol dependence, uncomplicated; Z68.38 Body mass index [BMI] 38.0-38.9, adult; E66.01 Morbid (severe) obesity due to excess calories; G47.33 Obstructive sleep apnea (adult) (pediatric); R53.83 Other fatigue
CPT/HCPCS: 36415; 80048; 80061; 80076; 82043; 82570; 82607; 82728; 82746; 83036; 83540; 84443; 85014; 85018

== ENCOUNTER 2025-04-29 08:14 | Outpatient (REF) | payer MEDICAID, SELFPAY ==
--- NOTE | ~2025-04-29 | US_ITS ---
EXAMINATION: US ABDOMEN HISTORY: repeat US for elevated LFTs TECHNIQUE: Real-time grayscale ultrasound imaging of the abdomen was performed and images were reviewed. COMPARISON: Comparison is made with the prior examination dated 05/22/2023. FINDINGS: Liver: The right lobe of the liver measures 17.3 cm in size. The left lobe of the liver measures 11.4 cm in size. The liver demonstrates increased echotexture, consistent with steatosis. No focal mass or intrahepatic biliary ductal dilatation is identified. There is normal hepatopedal flow in the portal vein. Gallbladder and biliary tree: The gallbladder is unremarkable, without evidence of calculi, wall thickening, or pericholecystic fluid. There is no sonographic Lamar sign. The common bile duct is normal in caliber measuring 3 mm. Kidneys: The right kidney measures 10.9 cm in length. The left kidney measures 11.3 cm in length. The kidneys are unremarkable, without evidence of masses, hydronephrosis, or calculi. Pancreas: The pancreatic head and neck are unremarkable. The remainder of the pancreas is obscured by bowel gas. Spleen: The spleen is mildly enlarged measuring 12.7 cm in length. Abdominal aorta and inferior vena cava: The visualized portions of the abdominal aorta and inferior vena cava are normal in caliber. There is no free fluid in the abdomen. US/US abdomen complete IMPRESSION: Hepatosplenomegaly and hepatic steatosis. Electronically signed by: Kael Bermudez MD 04/29/2025 09:14 AM EDT
--- OUTSIDE RECORDS SUMMARY | 2025-04-29 08:39 | XMS_ITS | Encounter Summary ---
Author Organization [employer] Address [address] [facility] 7t [place] [address] Care Team Providers Care Manufacturing Storeperson Name Role Phone Gris Pang Primary Care Provider [phone] Reason for Visit * Reason Comments Med Refill Encounter Details Date Type Department Care Team (Late st Contact Info) Description 02/22/2025 Refill [facility] [address] [place], [place] [phone] Gris Pang ANP [address] [place], [place] [phone] Social History Tobacco Use Types Packs/Day Years [...] shut off services in your home? No 02/09/2025 Depression Answer Date Recorded Patient Health Questionnaire-2 [...] as of this encounter Plan of Treatment Not on file documented as of this encounter Visit Diagnoses Not on filedocumented in this encounter Additional Health Concerns Assessment Noted Time PHQ-9 Depression Total Score: 15 025 9:26 AM EST documented as of this encounter Care Teams Manufacturing Storeperson Relationship Specialty Start Date End Date Gris Pang ANP [address] [place] [address] PCP - General Family Medicine 07/26/20 documented as of this encounter
--- OUTSIDE RECORDS SUMMARY | 2025-04-29 08:39 | XMS_ITS | Encounter Summary ---
Author Organization [employer] Address [address] [facility] 7t [place] [address] Care Team Providers Care Supervisor Hospitality House Name Role Phone Poly Gris ALEMAN Primary Care Provider [phone] Reason for Visit * Reason Comments Med Refill Encounter Details Date Type Department Care Team ([facility] st Contact Info) Description 12/18/2023 Refill [facility] [address] [place], [place] [phone] Constantine Tilley MD [address] [place], [place] [phone] Social History Tobacco Use Types Packs/Day Years [...] documented as of this encounter Care Teams Supervisor Hospitality House Relationship Specialty Start Date End Date Gris Pang ANP [address] [place] [phone] PCP - General Family Medicine 07/26/20 documented as of this encounter
--- OUTSIDE RECORDS SUMMARY | 2025-04-29 08:39 | XMS_ITS | Encounter Summary ---
Author Organization [employer] Address [address] [facility] 7t [place] [address] Care Team Providers Care Chassis Mechanic Name Role Phone Gris Pang Primary Care Provider [phone] Encounter Details Date Type Department Care Team (Latest Contact Info) Description 12/11/2020 Abstract [facility] Dental, Provider, DDS Social History Tobacco [...] on filedocumented in this encounter Care Teams Chassis Mechanic Relationship Specialty Start Date End Date Gris Pang ANP [address] [place] [phone] PCP - General Family Medicine 07/26/20 documented as of this encounter
--- OUTSIDE RECORDS SUMMARY | 2025-04-29 08:39 | XMS_ITS | Clinical Summary ---
Author Organization [employer] [facility] ity Address [address] [place] [address] Care Team Providers Care Real Estate Administrator Name Role Phone Unavailable Primary Care Provider [...] Panel) 04/05/2024 Colorectal Cancer Screening: Colonoscopy 04/05/2024 HIV Screening 04/05/2024 Hepatitis C Screening 04/05/2024 Social Influencers of Health Screening 04/05/2024 Depression Screening 08/11/2024 COVID-19 Vaccine (2023-2 5 season) 2025 Influenza Vaccine (#1) 2025 HIB Vaccines Aged Out No longer [...] 5 Years) and At-Risk Patients (6 to 49 Years) Aged Out No longer eligible b ased on patient's age to complete this topic RSV Immunization Patients Un emy 20 months Aged Out No longer eligible b ased on patient's age to complete this topic Varicella Vaccines Aged Out No longer eligible based on patient's age to complete this topic
--- OUTSIDE RECORDS SUMMARY | 2025-04-29 08:40 | XMS_ITS | Encounter Summary ---
Author Organization [employer] Address [address] [facility] [address] [place] [address] Care Team Providers Care Job Coach Name Role Phone Poly Gris ALEMAN Primary Care Provider [phone] Reason for Visit * Reason Comments Med Refill Encounter Details Date Type Department Care Team (Late st Contact Info) Description 12/22/2023 Refill [facility] [address] [place] [address] Rosalba Abdul FNP [address] [place] [address] Acute gout involving toe of right foot, [...] documented as of this encounter Care Teams Job Coach Relationship Specialty Start Date End Date Gris Pang ANP [address] [place] [phone] PCP - General Family Medicine 07/26/20 documented as of this encounter
--- OUTSIDE RECORDS SUMMARY | 2025-04-29 08:40 | XMS_ITS | Clinical Summary ---
Author Organization [employer] Address [address] [facility] [address] [place] [address] Care Team Providers Care Financial Specialist Name Role Phone Gris Pang ASH Primary Care Provider [phone] Allergies No known active allergies Medications * This document contains information received from the source organization and may not represent a complete record from that organization. famotidine (Pepcid) 20 MG tablet Take 1 tablet by mouth every 12 (twelve) hours. 1 Active ibuprofen 800 MG tablet Take 1 tablet by mouth every 8 (eight) hours. 1 Active lidocaine (Lidoderm) 5 % patch Place 1 patch on the skin at bed time. 2 Active lidocaine (Xylocaine) 5 % ointment Apply topically at bed time. 2 Active loratadine (Claritin) 10 MG tablet Take 1 tablet by mouth at bed time. Active meclizine (Antivert) 25 MG tablet Take 1 tablet by mouth every 8 (eight) hours. 0 Active omeprazole OTC (PriLOSEC OTC) 20 MG EC tablet Take 1 tablet by mouth at bed time. Active gabapentin (Neurontin) 300 MG capsule Take 1 capsule (300 mg) by mouth 3 times daily for 10 days. 30 capsule 4 Active Additional Information Patient not taking.Reported on 04/13/2025 dicyclomine (Bentyl) 20 MG tablet TAKE 1 TABLET BY MOUTH FOUR TIMES DAILY BEFORE MEALS AND AT BEDTIME 4 Active omeprazole (PriLOSEC) [address] capsule Take 1 capsule by mouth 2 times daily. 5 Active thiamine (Vitamin B-1) 100 MG tabletIndications :Alcohol use disorder, severe, dependence (CMS/HCC) Take 1 tablet (100 mg) by mouth Once daily. 90 tablet 3 5 Active amLODIPine (Norvasc) 10 MG tablet TAKE 1 TABLET BY MOUTH EVERY DAY 90 tablet 1 5 Active folic acid (Folvite) 400 MCG tabletIndications :Alcohol use disorder, severe, dependence (CMS/HCC) Take 1 tablet (400 mcg) by mouth Once per day. 90 tablet 3 5 Active baclofen (Lioresal) 5 MG tabletIndications :Muscle spasm TAKE 1 TO 2 TABLETS BY MOUTH THREE TIMES DAILY NEEDED FOR MUSCLE SPASMS 60 tablet 1 5 Active Acetaminophen Extra Strength 500 MG tabletIndications :Acute gout involving toe of right foot, unspecified cause TAKE 2 TABLETS BY MOUTH EVERY 8 HOURS NEEDED FOR PAIN OR FEVER 100 tablet 1 5 Active fluticasone (Flonase) 50 MCG/ACT nasal sprayIndications: Non-seasonal allergic rhinitis, unspecified trigger Administer 1-2 sprays into each nostril Once daily as needed for rhinitis. 48 g 5 Active Diclofenac Sodium (Voltaren) 1 % gelIndications:La teral epicondylitis of both elbows Apply up to 4x/d to affected joint(s) for pain/swelling 100 g 2 5 Active lisinopril-hydroC HLOROthiazide 10-12.5 MG tabletIndications :Primary hypertension TAKE 1 TABLET BY MOUTH DAILY 90 tablet 5 Active Active Problems Problem Noted Date Diagnosed [...] Health Integration Plan Internal Follow up with [facility] Patient Self Plan Patient to reach out to [facility] team as needed and Patient to reach [...] organization. Date Type Department Care Team Description 04/13/2025 3:00 PM EDT Office Visit [facility] [address] [place] [phone] Amelia Rodriguez Dental plaque (Primary Dx); Dental calculus 03/14/[address] [address] Isabela Barney MD Primary hypertension 02/22/[address] [address] Gris Pang ANP 02/14/[address] [address] Natali Gomez [place] 02/14/[address] [address] Natali Gomez [place] Error (VOID this visit) 02/10/2025 Results Follow-Up [address] [address] Gris Pang ANP Lipid Panel, Standard, Hepatic Function Panel, Albumin, Random Urine W/Creatinine, Additional followed-up results: 7 02/10/[address] [address] Gris Pang ANP Durable Medical Equipment 02/09/2025 3:15 PM EDT Office Visit [address] [address] Gris Pang ANP Essential hypertension (Primary Dx); Bilateral carpal tunnel syndrome; Screening for malignant neoplasm of colon; Non-seasonal allergic rhinitis, unspecified trigger; Lateral epicondylitis of both elbows; Anxiety; Ulnar neuropathy of both upper extremities; Elevated cholesterol; Elevated liver function tests 02/09/2025 Travel 02/08/[address] [address] Gris Pang ANP CHART PREP 02/03/2025 Patient Outreach [facility] [address] [place] [address] Gris Pang ANP Pre-visit Planning (SDOH unable to reach [facility] ) 01/31/2025 Telephone [facility] [address], [place] [phone] Shruti Montemayor RN EMG Results 01/31/2025 Orders Only [facility] [address], [place] [phone] Gris Pang ANP Bilateral carpal tunnel syndrome (Primary Dx); Ulnar neuropathy of both upper extremities from Last 3 Months Immunizations Immunization Administration Dates Next Due Hep B, adult [...] Sign Reading Time Taken Comments Blood Pressure 162/78 04/13/2025 2:59 PM EDT Pulse 93 02/09/2025 2:50 PM EDT Temperature 37.1 C (98.8 F) 10/07/2024 2:28 PM EST Respiratory Rate 16 02/09/2025 2:50 PM EDT Oxygen Saturation 98% 10/07/2024 2:28 PM EST Inhaled Oxygen Concentration - - Weight 94.8 kg (209 lb) 02/09/2025 2:50 PM EDT Height 157.5 cm (5' 2 ) 02/09/2025 2:50 PM EDT Body Mass Index 38.23 02/09/2025 2:50 PM EDT Plan of Treatment Health Maintenance Due Date Last Done Comments CT Colonography 1977 Colonoscopy 1977 Colorectal Cancer Screening 1977 FIT DNA/Cologuard 1977 FIT 1977 FOBT 1977 Sigmoidoscopy 1977 Family Planning (PISQ) 1992 Hepatitis A Vaccines (1 of 2 - Risk 2-dose series) 1996 Pneumococcal Vaccine: Pediatrics (0 to 5 Years) and At-Risk Patients (6 to 49) Years (1 of 2 - PCV) 1996 Hepatitis B Vaccines (3 of 3 - 19+ 3-dose series) 04/01/2024 11/04/2023, 10/02/2023 COVID-19 Vaccine (4 - 2024- season) 2025 07/03/2021, 12/06/2020, 11/08/2020 Influenza Vaccine (#1) 2025 08/02/2021 Depression Monitoring 04/13/2025 10/11/2024, 025 Dental Oral Exam 05/13/2025 11/10/2024 Alcohol/Substance Use Screening 10/07/2025 10/07/2024 Dental Prophylaxis 10/12/2025 04/13/2025 Dental X-Ray: Bitewings 12/16/2025 12/16/19, 11/10/2024, 10/05/2024, Additional history exists Diabetes: Hemoglobin A1C 02/09/2026 02/09/2025, 12/10 Disability Screening 02/09/2026 02/09/2025 SDOH Screening 02/09/2026 02/09/2025 Tobacco Screening 04/13/2026 04/13/2025 Zoster Vaccines (1 of 2) 2027 DTaP/Tdap/Td Vaccines (2 - Td or Tdap) 06/06/2027 06/06/2017 Dental X-Ray: Full Mouth 11/12/2027 11/10/2024 Lipid Panel 02/09/2030 02/09/2025, 12/31/2021 RSV Patients and Patients Aged 60 years [...] Procedure Name Priority Date/Time Associated Diagnosis Comments ORAL HYGIENE INSTRUCTIONS Routine 04/13/2025 3:00 PM EDT Dental plaque Dental calculus CASE PRESENTATION, DETAILED AND EXTENSIVE TREATMENT PLANNING Routine 04/13/2025 3:00 PM EDT PROPHYLAXIS - ADULT Routine 04/13/2025 3 :00 PM EDT Dental plaque Dental calculus FERRITIN Routine 02/09/2025 8:39 AM EDT Alcohol use disorder, severe, dependence (CMS/HCC) IRON AND TOTAL IRON BINDING CAPACITY Routine 02/09/2025 8:39 AM EDT Alcohol use disorder, severe, dependence (CMS/HCC) VITAMIN B12/FOLATE, SERUM PANEL Routine 02/09/2025 8:39 AM EDT Alcohol use disorder, severe, dependence (CMS/HCC) TSH W/REFLEX TO FT4 Routine 02/09/2025 8 :39 AM EDT Fatigue, unspecified type HEMOGLOBIN + HEMATOCRIT Routine 02/09/2025 8:39 AM EDT KERRI (obstructive sleep apnea) HEMOGLOBIN A1C Routine 02/09/2025 8:39 AM EDT Class 2 severe obesity with serious comorbidity and body mass index (BMI) of 38.0 to 38.9 in adult, unspecified obesity type (CMS/HCC) BASIC METABOLIC PANEL Routine 02/09/2025 8:39 AM EDT Essential hypertension ALBUMIN, RANDOM URINE W/CREATININE Routine 02/09/2025 8:39 AM EDT Essential hypertension HEPATIC FUNCTION PANEL Routine 02/09/2025 8:39 AM EDT Class 2 severe obesity with serious comorbidity and body mass index (BMI) of 38.0 to 38.9 in adult, unspecified obesity type (CMS/HCC) LIPID PANEL, STANDARD Routine 02/09/2025 8:39 AM EDT Class 2 severe obesity with serious comorbidity and body mass index (BMI) of 38.0 to 38.9 in adult, unspecified obesity type (CMS/HCC) BITEWING - SINGLE RADIOGRAPHIC IMAGE Routine 12/15/2024 9:00 AM EDT Closed fracture of tooth, initial encounter INTRAORAL - COMPLETE SERIES OF RADIOGRAPHIC IMAGES Routine 11/10/2024 2:30 PM EDT Encounter for dental examination Dental calculus Dental plaque Tooth sensitivity to cold COMPREHENSIVE ORAL EVALUATION - NEW OR ESTABLISHED PATIENT Routine 11/10/2024 2:30 PM EDT Encounter for dental examination Dental calculus Dental plaque Tooth sensitivity to cold HEPATITIS C AB W/REFL TO HCV RNA, QN, PCR Routine 10/21/2023 8:48 AM EDT Alcohol use disorder, severe, dependence (CMS/HCC) HIV 1/2 ANTIGEN/ANTIBODY, FOURTH GENERATION W/RFL Routine 10/21/2023 8:48 AM EDT Alcohol use disorder, severe, dependence (CMS/HCC) from Last 3 Months or Most Recently Relevant to Health Maintenance Results * Vitamin B12/Folate, Serum Panel (02/09/2025 8:39 AM EDT) Vitamin B12 336 200 - 900 pg/mL [facility] Comment:NORMAL 200-900 PG/ML INDETERMINATE 160-199 PG/ML DEFICIENT < 160 PG/ML Folate 16.3 > or = 4.0 ng/mL [facility] Comment:Reference Values:> o r = 4.0 ng/mL< 4.0 ng/mL suggests folate deficiency Methotrexate, aminopterin and folinic acid(leucovorin) are chemotherapeutic agents whose molecularstructures are similar to folate; therefore, the Architectfolate assay cannot be used for patients using these drugs. Blood Venous blood specimen / Unknown 02/09/2025 8:39 AM EDT 02/09/2025 11:51 AM EDT Gris ALEMAN LAB BLOOD ORDERABLES Final Resul t [facility] [address] [place] [phone] * TSH W/Reflex to FT4 (02/09/2025 8:39 AM EDT) TSH reflex Free T4 1.20 0.32 - 4.0 uIU/mL [facility] Blood Venous blood specimen / Unknown 02/09/2025 8:39 AM EDT 02/09/2025 11:51 AM EDT us Gris Pang ANP LAB BLOOD ORDERABLES Final Resul t Performing Organization Address [facility] de Phone Number [facility] [address] [place] [phone] * Albumin, Random Urine W/Creatinine (02/09/2025 8:39 AM EDT) Creatinine, Urine 116.90 mg/dL [facility] Microalbumin Urine 12.0 mg/L [facility] Microalbum Creatinine Ratio Ur 10.2 <30 ug/mg cr [facility] Comment:Albumin/Creatinine R atio Reference Ranges: Normal: < 30 ug/mg creatinine Microalbuminuria: 30 - 300 ug/mg creatinineClinical Albuminuria: > 300 ug/mg creatinine Urine 02/09/2025 8:39 AM EDT 02/09/2025 11:01 AM EDT us Gris Pang ANP LAB URINE ORDERABLES Final Resul t Performing Organization Address [facility] de Phone Number [facility] [address] [place] [phone] * Iron And Total Iron Binding Capacity (02/09/2025 8:39 AM EDT) Iron 143 45 - 160 mcg/dL [facility] Total Iron Binding Capacity 353 228 - 428 mcg/dL [facility] Percent Iron Saturation 41 15 - 50 % [facility] Unsaturated Iron Binding 210 ug/dL [facility] Blood Venous blood specimen / Unknown 02/09/2025 8:39 AM EDT 02/09/2025 11:51 AM EDT Gris Pang ANP LAB BLOOD ORDERABLES Final Resul t Performing Organization Address [facility] Co de Phone Number [facility] [address] [place] [phone] * Hemoglobin and Hematocrit (02/09/2025 8:39 AM EDT) Hemoglobin 14.0 14.0 - 18.0 g/dl [facility] Hematocrit 43.4 42.0 - 52.0 % [facility] Blood Venous blood specimen / Unknown 02/09/2025 8:39 AM EDT 02/09/2025 11:22 AM EDT Gris Pang ANP LAB BLOOD ORDERABLES Final Resul t Performing Organization Address [facility] Phone Number [facility] [address] [place] [phone] * Hemoglobin A1c (02/09/2025 8:39 AM EDT) Hemoglobin A1c 5.8 <6.0 % [facility] Comment:Hemoglobin A1C Refer ence Range Adults: 4.8 - 6.0 % Non diabetic: < 6.0 % Goal: < 7.0 %Additional Action Suggested: > 8.0 %Note: Hemoglobin A1c results are invalid for patients with abnormal amounts of HbF. Blood transfusions may impact the HbA1c concentration in the patient sample. Estimated Average Glucose 120 mg/dL [facility] Comment:eAG = Estimated ave rage glucose which is %A1C expressed asaverage glucose, using the formula of the [id number]-[id number] Glucose study (ADAG), Diabetes Care, Vol.31,#8,2007 Blood Venous blood specimen / Unknown 02/09/2025 8:39 AM EDT 02/09/2025 11:22 AM EDT Gris Pang ANP LAB BLOOD ORDERABLES Final Resul t Performing Organization Address [facility] Co de Phone Number [facility] [address] [place] [phone] * Ferritin (02/09/2025 8:39 AM EDT) Pathologist [facility] Ferritin 41 20 - 250 ng/mL [facility] Blood Venous blood specimen / Unknown 02/09/2025 8:39 AM EDT 02/09/2025 11:51 AM EDT Gris [facility] LAB BLOOD ORDERABLES Final Resul t Performing Organization Address [facility] Co de Phone Number [facility] [address] [place] [phone] * (ABNORMAL) Hepatic Function Panel (02/09/2025 8:39 AM EDT) Pathologist [facility] Bilirubin, Total 0.7 0.0 - 1.0 mg/dL [facility] Bilirubin, Direct 0.3 0.0 - 0.5 mg/dL [facility] Aspartate Amino Transferase 58(H) 5 - 37 U/L [facility] Alanine Aminotransferase 46(H) 0 - 40 U/L [facility] Total Protein 7.8 6.5 - 8.0 g/dL [facility] Albumin Level 4.6 3.5 - 5.0 g/dL [facility] Alkaline Phosphatase 102 39 - 117 U/L [facility] Blood Venous blood specimen / Unknown 02/09/2025 8:39 AM EDT 02/09/2025 11:51 AM EDT [facility] LAB BLOOD ORDERABLES Final Resul t Performing Organization Address City/[facility]/ZIP Co de Phone Number [facility] [address] [place] [phone] * (ABNORMAL) Lipid Panel, Standard (02/09/2025 8:39 AM EDT) Triglycerides 217(H) <150 mg/dL [facility] Comment:Desirable Triglyceri de: less than 150 mg/dLBorderline High Triglyceride 150-199 mg/dLHigh Triglyceride: 200-499 mg/dLVery High Triglyceride: greater than or equal to 5OO mg/dL Cholesterol 206(H) <200 mg/dL [facility] Comment:Desirable Cholestero l: less than 200 mg/dLBorderline High Cholesterol: 200-239 mg/dLHigh Cholesterol: greater than 239 mg/dL LDL Cholesterol Calculated 99 <100 mg/dL [facility] Comment:Desirable LDL: less than 100 mg/dLNear Optimal/Above Optimal LDL: 110- 129 mg/dLBorderline High LDL: 130-159 mg/dLHigh LDL: 160-189 mg/dLVery High LDL: greater than or equal to 190 mg/dL HDL Cholesterol 64 >40 mg/dL [facility] Comment:Desirable HDL: great er than 40 mg/dL Note: This HDL assay may give artificially low results in patients with liver disease. Blood Venous blood specimen / Unknown 02/09/2025 8:39 AM EDT 02/09/2025 11:[address] [facility] Pang [facility] LAB BLOOD ORDERABLES Final Resul t [facility] [address] [place] [phone] * Basic Metabolic Panel (02/09/2025 8:39 AM EDT) Sodium 137 135 - 145 mmol/L [facility] Potassium 4.0 3.3 - 5.1 mmol/L [facility] Chloride 102 96 - 108 mmol/L [facility] Carbon Dioxide 26 22 - 29 mmol/L [facility] Anion Gap 13 12 - 20 [facility] Urea Nitrogen (BUN) 12 9 - 16 mg/dL [facility] Creatinine, Serum 0.72 0.5 - 1.4 mg/dL [facility] Estimated Glomerular Filt Rate >60 [facility] Comment:Chronic Kidney Disea se: Estimated GFR < 60 mL/min/[id number] Kidney Disease: Estimated GFR < 15 mL/min/1.73m2 Glucose 96 60 - 115 mg/dL [facility] Calcium 9.2 8.4 - 10.2 mg/dL [facility] Blood Venous blood specimen / Unknown 02/09/2025 8:39 AM EDT 02/09/2025 11:51 AM EDT Gris ALEMAN LAB BLOOD ORDERABLES Final Resul t Performing Organization Address [facility] Co de Phone Number [facility] [address] [place] [phone] * Hepatitis C Antibody with Reflex to HCV, RNA, Quantitative, Real-Time PCR (10/21/2023 8:48 AM EDT) Pathologist [facility] Hepatitis C Antibody Nonreactive Nonreactive [facility] Comment:Antibodies to HCV no t detected; does not exclude early acuteHCV infection. Blood Venous blood specimen / Unknown 10/21/2023 8:48 AM EDT 10/21/2023 11:06 AM EDT Gerson Key MD LAB BLOOD ORDERABLES Final Resul t Performing Organization Address [facility] de Phone Number [facility] [address] [place] [phone] * HIV-1/2 Antigen and Antibodies, Fourth Generation, with Reflexes (10/21/2023 8:48 AM EDT) Pathologist [facility] HIV AB/AG Nonreactive Nonreactive [facility] Comment:HIV-1 p24 Ag and/or HIV-1/HIV-2 Ab not detected.A test result that is nonreactive does not exclude thepossibility of exposure to or infection with HIV-1 and/orHIV-2. Nonreactive results in this assay for individualswith prior exposure to HIV-1 and/or HIV-2 may be due toantigen and antibody levels that are below the limit ofdetection of this assay.[employer] HIV Ag/Ab Combo assay result andsupplemental assay results should be interpreted inconjunction with the patient's clinical presentation,history and other laboratory results. If the results areinconsistent with clinical evidence, additional testing issuggested to confirm the result. Blood Venous blood specimen / Unknown 10/21/2023 8:48 AM EDT 10/21/2023 11:06 AM EDT us Gerson Key MD LAB BLOOD ORDERABLES Final Resul t [facility] [address] [place] [phone] from Last 3 Months or Most Recently Relevant to Health Maintenance Insurance [facility] MEDICAID STAND ADULT Care Teams Financial Specialist Relationship Specialty Start Date End Date Gris Pang ANP [address] [place] [phone] PCP - General Family Medicine 07/26/20
--- OUTSIDE RECORDS SUMMARY | 2025-04-29 08:40 | XMS_ITS | Clinical Summary ---
Author Organization [facility] Address [address] [place] [address] Care Team Providers Care 8Th Grade Teacher Name Role Phone Jeff Allen NP Primary Care Provider [phone] Source Comments PLEASE NOTE, if this patient [...] on file Insurance [place] MEDICAID Care Teams 8Th Grade Teacher Relationship Specialty Start Date End Date Jeff Allen NP [address] [place] [phone] PCP - General 06/18/18
--- OUTSIDE RECORDS SUMMARY | 2025-04-29 08:40 | XMS_ITS | Encounter Summary ---
Author Organization [employer] Address [address] [place] [address] Care Team Providers Care Assembler [employer] Name Role Phone Poly Gris ALEMAN Primary Care Provider [phone] Reason for Visit * Reason Comments Med Refill Encounter Details Date Type Department Care Team (Late st Contact Info) Description 11/04/2022 Refill [facility] [address] [place] [address] Fannie Norwood MD [address] [place] [address] Adhesive capsulitis of right shoulder Social History [...] Noted Time PHQ-9 Depression Total Score: 0 03/24/20 23 9:31 AM EDT documented as of this encounter Care Teams Assembler [employer] Relationship Specialty Start Date End Date Gris Pang ANP [address] [place] [address] PCP - General Family Medicine 07/26/20 documented as of this encounter
== END 2025-04-29 08:15 | disposition home or self-care (01) ==
LOC: HO.US 08:14
PROVIDERS: PCP Nurse Practitioner Primary Care; Visit Provider Nurse Practitioner Primary Care
DX: R79.89 Other specified abnormal findings of blood chemistry (principal)
CPT/HCPCS: 76700

== ENCOUNTER → 2025-04-29 08:15 | Outpatient (BNV) | payer MEDICAID, SELFPAY | PROVIDERS: PCP Nurse Practitioner Primary Care; Visit Provider Radiology Diagnostic Radiology | DX: K76.0 Fatty (change of) liver, not elsewhere classified (principal); R16.2 Hepatomegaly with splenomegaly, not elsewhere classified | CPT/HCPCS: 76700 ==

== ENCOUNTER 2025-07-06 12:46 | Outpatient (AMB) | payer MEDICAID, SELFPAY ==
[2025-07-06 12:58] VITALS: BP 145/78; PULSE 81; BMI 38.8
--- NOTE | 2025-07-06 12:58 | MHC.OFFVIS ---
Vital Signs 07/06/25 12:58 Height 5 ft 2 in Weight 212 lb 1.355 oz BMI 38.8 BP 145/78 H Blood Pressure Location Rt brachial Position Sitting Pulse 81 Intake Visit Reasons: [place] screen r/s 04/06 last 07/17/23 Intake Note: Pt in office today for repeat colonoscopy. CC: Patient reports doing well and denies any GI symptoms or concerns. Wildlife Ecology Professor Required: Yes Wildlife Ecology Professor Language: Mongolian Allergies No Known Allergies Allergy (Verified 07/06/25 13:00) HPI HPI [place] screen r/s 04/06 last 07/17/23: Details: LABS: RELEVANT PMX ETOH ABUSE TODAY'S VISIT [place] [facility] PATIENT HAS NOT BEEN SEEN SINCE 2022 and is apparently presenting now for colonoscopy Cardiac or respiratory problems ANes or sedation problems. No ID problems: [facility] History Hypertension Surgical History H/O colonoscopy History of esophagogastroduodenoscopy (EGD) Family History Father Heart problem Stroke HTN (hypertension) Mother HTN (hypertension) Arthritis Social History Alcohol intake: current Alcohol intake frequency: 3 or more drinks per day Alcohol type: beer Current occupational status: employed and unemployed Current occupation: right handed Review of Systems Const Denies fatigue, Denies fever(s), Denies night sweats, Denies poor appetite and Denies weight loss ENT Reports Normal hearing present, Denies dental pain, Denies dysphagia, Denies hearing loss, Denies mouth pain, Denies odynophagia, Denies throat swelling, Denies tongue swelling and Reports other (Dentition adequate) Card Reports no additional complaints Resp Reports no additional complaints GI Details: Denies abdominal pain, Denies melena, Denies bloating, Denies hematochezia, Denies constipation, Denies GI cramping, Denies dysphagia, Denies excessive flatus, Denies early satiety, Denies heartburn, Denies diarrhea, Denies nausea, Denies odynophagia, Denies vomiting and Denies hematemesis Skin/Breast Denies pruritus, Denies lesions, Denies rash and Denies jaundice Neuro Reports Normal hearing present and Denies Abnormal speech present Endo Denies fatigue Aller/Immun Denies throat swelling and Denies tongue swelling Physical Exam Vital Signs: Last Vital Signs Pulse 81 07/06/25 12:58 BP 145/78 H 07/06/25 12:58 BMI result Body Mass Index 38.8 Const General: cooperative, no acute distress, well developed and well groomed Nutritional Appearance: well nourished and obese centrally obese Orientation/consciousness: oriented to person, oriented to place and oriented to time Limitations: language barrier HEENT Head: Yes normocephalic and Yes atraumatic Eyes General: appearance normal, both eyes and all related structures Pupils: Equal, round and reactive pupils present Neck Neck: Yes normal visual inspection and Yes no lymphadenopathy Thyroid: Thyroid normal Resp Effort & Inspection: normal respiratory effort and able to speak in complete sentences Auscultation: clear to auscultation bilaterally Cardio Rate: regular rate Rhythm: regular rhythm Heart sounds: Normal, physiologic split S2 sound present Peripheral pulses: radial pulses present and posterior tibial pulses present GI Inspection: No distended, No Abdominal panniculus present and Yes obesity Palpation (GI): Soft to palpation, nontender, no guarding, not rigid and No hepatosplenomegaly present Percussion: Yes normal to percussion Auscultation: normal bowel sounds Rectal Exam - Male: Yes deferred Skin General skin exam: no rashes or lesions noted, turgor normal, skin not dry, no jaundice, No spider nevi and no striae Rashes: no rashes Nails: normal Neuro General: oriented to person, oriented to place and oriented to time Cranial nerves: Yes Equal, round and reactive pupils present and Yes Normal hearing present Speech: No Abnormal speech present Extrem General: Yes normal to inspection, No clubbing, No cyanosis and No edema Psych Appearance: grossly normal and well kempt Mental Status: mental status grossly normal Speech and movement: Normal speech and movement present Affect: normal affect Attitude: cooperative Thought process: Normal thought process present and not confabulating Thought content: Normal thought content present Insight: Good insight present (Psych) Judgement: Good judgement present (Psych) Results Reviewed Results Reviewed: Laboratory Tests 02/09/25 08:39 Estimated GFR > 60 Total Bilirubin 0.7 Direct Bilirubin 0.3 AST 58 H ALT 46 H Alkaline Phosphatase 102 TSH 1.20 Assessment & Plan Assessment & Plan (1) Pre-op examination: Code(s): Z01.818 - Encounter for other preprocedural examination Category: Medical (2) ETOH abuse: Code(s): F10.10 - Alcohol abuse, uncomplicated Category: Social Hx Plan [place] #[facility] PATIENT HAS NOT BEEN SEEN SINCE 2022 and is apparently presenting now for colonoscopy, but what limited investigation I see in our computer after conversion seems to show an EGD only. He says he had a colonoscopy 2 years ago with no findings Cardiac or respiratory problems: No ANes or sedation problems:No No ID problems:No FHX: No Orders: Referrals GI Procedure Notification Z01.818 - Encounter for other preprocedural examination Medications: New bisacodyl (Dulcolax (bisacodyl)) 10 mg (2 x 5 mg) PO BEDTIME 4 tabs 0RF 2 days peg 3350-electrolytes 236-22.74-6.74 -5.86 gram (Golytely) until fecal effluent is clear; do not exceed a total volume of 2,000 mL 240 mL PO Q10M 4,000 mL 0RF 1 day Z12.11 - Encounter for screening for malignant neoplasm of colon Coding Level of Care Code New Pt Level 3 (08321) Diagnoses Pre-op examination Z01.818 ETOH abuse F10.10
--- OUTSIDE RECORDS SUMMARY | 2025-07-06 15:47 | XMS_ITS | Clinical Summary ---
Author Organization [employer] Address [address] [place] [address] Care Team Providers Care Forging Dies Final Finisher Name Role Phone Jos Jung ASH Primary Care Provider [phone] Allergies No known active allergies Medications * This document contains information received from the source organization and may not represent a complete record from that organization. famotidine (Pepcid) 20 MG tablet Take 1 tablet by mouth every 12 (twelve) hours. 11/04/19 21 Active ibuprofen 800 MG tablet Take 1 [...] 10 days. 30 capsule 12/04/19 24 Active Additional Information Patient not taking.Reported on 04/13/2025 dicyclomine (Bentyl) 20 MG tablet TAKE 1 TABLET BY MOUTH FOUR TIMES DAILY BEFORE MEALS AND AT BEDTIME 07/30/20 24 Active omeprazole (PriLOSEC) [address] capsule Take 1 capsule by mouth 2 times daily. 09/28/19 25 Active thiamine (Vitamin B-1) 100 MG tabletIndication s:Alcohol use disorder, severe, dependence (CMS/HCC) (HCC) Take 1 tablet (100 mg) by mouth Once daily. 90 tablet 3 10/07/19 25 Active folic acid (Folvite) 400 MCG tabletIndication s:Alcohol use disorder, severe, dependence (CMS/HCC) (HCC) Take 1 tablet (400 mcg) by mouth [...] FEVER 100 tablet 1 11/23/19 25 Active fluticasone (Flonase) 50 MCG/ACT nasal sprayIndications :Non-seasonal allergic rhinitis, unspecified trigger Administer 1-2 sprays into each nostril Once daily as needed for rhinitis. 48 g 02/10/20 25 Active Diclofenac Sodium (Voltaren) 1 % gelIndications:L ateral epicondylitis of both elbows Apply up to 4x/d to affected joint(s) for pain/swelling 100 g 2 02/10/20 25 Active amLODIPine (Norvasc) 10 MG tablet TAKE 1 TABLET BY MOUTH EVERY DAY 90 tablet 1 05/03/20 25 Active lisinopril-hydro CHLOROthiazide 10-12.5 MG tabletIndication s:Primary hypertension TAKE 1 TABLET BY MOUTH EVERY DAY 90 tablet 1 06/16/20 25 Active lisinopril-hydro CHLOROthiazide 10-12.5 MG tabletIndication s:Primary hypertension TAKE 1 TABLET BY MOUTH DAILY 90 tablet 03/15/20 25 2024 Discontinued Active Problems Problem Noted Date Diagnosed [...] no improvement Alcohol use disorder, severe, dependence (CMS/HC C) 10/06/2023 VLADIMIR (generalized anxiety disorder) 10/06/2023 Specific phobia [...] major depressive disorder, without psychotic features (CMS/HCC) 04/21/2016 Overview (11/01/2022): [facility] Assessment & Plan (10/06/2023 2:41 PM EST): Measurement Tools [Check all that apply and include scores] PHQ9, VLADIMIR-7 PHQ9: 24 GAD7: 21 STAGES OF CHANGE PREPARATION PLAN: (check all that apply) Behavioral Health Integration Plan Internal Follow up with [facility] Patient Self Plan [facility] and Patient to [...] Overview (11/01/2022): 2015 home sleep study Encounters Date Type Department Care Team Description 06/15/2025 Refill [facility] [address] [facility] [place] [address] Jos Jung ANP Primary hypertension 06/03/2025 Results Follow-Up [facility] [address] [place] [address] Jos Jung ANP US Abdomen Complete 05/02/2025 Refill [facility] [address] [facility] [place] [address] Jos Jung ANP 04/13/2025 3:00 PM EDT Office Visit [facility] [address] [facility] [place] [address] Amelia Rodriguez Dental plaque (Primary Dx); Dental calculus from Last 3 Months Immunizations Immunization Administration [...] 02/09/2025 2:50 PM EDT Plan of Treatment Upcoming Encounters Date Type Department Care Team (Late st Contact Info) Description 07/25/2025 3:00 PM EST Office Visit [facility] [address] [place] [address] Jos Jung, ANP [address] [place] [address] Health Maintenance Due Date Last Done Comments [...] 11/04/2023, 10/02/2023 COVID-19 Vaccine ( - season) 2025 07/03/2021, 12/06/2020, 11/08/2020 Influenza Vaccine (#1) 2025 08/02/2021 Depression Monitoring 04/13/2025 10/11/2024, 025 Dental Oral Exam 05/13/2025 11/10/2024 Alcohol/Substance Use Screening 10/07/2025 10/07/2024 Dental Prophylaxis 10/12/2025 04/13/2025 Dental X-Ray: Bitewings 12/16/2025 12/16/19 25, 11/10/2024, 10/05/2024, Additional history exists Diabetes: Hemoglobin A1C 02/09/2026 02/09/2025, 052 10/2021 Disability Screening 02/09/2026 02/09/2025 SDOH Screening 02/09/2026 02/09/2025 Tobacco Screening 04/13/2026 04/13/2025 Zoster Vaccines (1 of 2) 2027 DTaP/Tdap/Td Vaccines (2 - Td or Tdap) 06/06/2027 06/06/2017 Dental X-Ray: Full Mouth 11/12/2027 11/10/2024, 05/0 10/2020 Lipid Panel 02/09/2030 02/09/2025, 12/31/2021 RSV Patients [...] Procedure Name Priority Date/Time Associated Diagnosis Comments US ABDOMEN COMPLETE Routine 04/29/2025 8 :41 AM EDT Elevated liver function tests ORAL HYGIENE INSTRUCTIONS Routine 04/13/2025 3:00 PM EDT Dental plaque Dental calculus CASE PRESENTATION, DETAILED AND EXTENSIVE TREATMENT PLANNING Routine 04/13/2025 3:00 PM EDT PROPHYLAXIS - ADULT Routine 04/13/2025 3 :00 PM EDT Dental plaque Dental calculus HEMOGLOBIN A1C Routine 02/09/2025 8:39 AM EDT [...] Recently Relevant to Health Maintenance Results * US Abdomen Complete (04/29/2025 8:41 AM EDT) Anatomical Region Laterality Modality Abdomen Ultrasound 04/29/2025 8:41 AM EDT Narrative 04/29/2025 9:17 AM EDT [place] [address] Ultrasound Report Signed Patient: Italo Gallegos MR#: [id number] : 1975 Acct:[id number] Age/Sex: 50 / M ADM Date: 04/29/25 Loc: .US Attending Dr: Jos Jung NP Ordering Physician: JOS JUNG NP Date of Service: 04/29/25 Procedure(s): US abdomen complete Accession Number(s): [id number] cc: JOS JUNG NP Reason for Exam: repeat US for elevated LFTs EXAMINATION: US ABDOMEN HISTORY: repeat US for elevated LFTs TECHNIQUE: Real-time grayscale ultrasound imaging of the abdomen was performed and images were reviewed. COMPARISON: Comparison is made with the prior examination dated 05/22/2023. FINDINGS: Liver: The right lobe of the liver measures 17.3 cm in size. The left lobe of the liver measures 11.4 cm in size. The liver demonstrates increased echotexture, consistent with steatosis. No focal mass or intrahepatic biliary ductal dilatation is identified. There is normal hepatopedal flow in the portal vein. Gallbladder and biliary tree: The gallbladder is unremarkable, without evidence of calculi, wall thickening, or pericholecystic fluid. There is no sonographic Lamar sign. The common bile duct is normal in caliber measuring 3 mm. Kidneys: The right kidney measures 10.9 cm in length. The left kidney measures 11.3 cm in length. The kidneys are unremarkable, without evidence of masses, hydronephrosis, or calculi. Pancreas: The pancreatic head and neck are unremarkable. The remainder of the pancreas is obscured by bowel gas. Spleen: The spleen is mildly enlarged measuring 12.7 cm in length. Abdominal aorta and inferior vena cava: The visualized portions of the abdominal aorta and inferior vena cava are normal in caliber. There is no free fluid in the abdomen. US/US abdomen complete IMPRESSION: Hepatosplenomegaly and hepatic steatosis. Electronically signed by: Kael Bermudez MD 04/29/2025 09:14 AM EDT RP Dictated By: Kael Bermudez MD Signed By: <Electronically signed by Kael Bermudez MD in [place]> 04/29/2514 DD/ 0841 TD/TT: 04/29/25 0855 Drug And Alcohol Counselor: Procedure Note Donotuseinterpreter, Image - 04/29/2025 [place] [address] Ultrasound Report Signed Patient: David Gallegos#: [id number] : 1975Acct:[id number] Age/Sex: 50 / MADM Date: 04/29/25 Loc: HO.US Attending Dr: Jos Jung NP Ordering Physician: JOS JUNG NP Date of Service: 04/29/25 Procedure(s): US abdomen complete Accession Number(s): [id number] cc: JOS JUNG NP Reason for Exam: repeat US for elevated LFTs EXAMINATION: US ABDOMEN HISTORY: repeat US for elevated LFTs TECHNIQUE: Real-time grayscale ultrasound imaging of the abdomen was performed and images were reviewed. COMPARISON: Comparison is made with the prior examination dated 05/22/2023. FINDINGS: Liver: The right lobe of the liver measures 17.3 cm in size. The left lobe of the liver measures 11.4 cm in size. The liver demonstrates increased echotexture, consistent with steatosis. No focal mass or intrahepatic biliary ductal dilatation is identified. There is normal hepatopedal flow in the portal vein. Gallbladder and biliary tree: The gallbladder is unremarkable, without evidence of calculi, wall thickening, or pericholecystic fluid. There is no sonographic Lamar sign. The common bile duct is normal in caliber measuring 3 mm. Kidneys: The right kidney measures 10.9 cm in length. The left kidney measures 11.3 cm in length. The kidneys are unremarkable, without evidence of masses, hydronephrosis, or calculi. Pancreas: The pancreatic head and neck are unremarkable. The remainder of the pancreas is obscured by bowel gas. Spleen: The spleen is mildly enlarged measuring 12.7 cm in length. Abdominal aorta and inferior vena cava: The visualized portions of the abdominal aorta and inferior vena cava are normal in caliber. There is no free fluid in the abdomen. US/US abdomen complete IMPRESSION: Hepatosplenomegaly and hepatic steatosis. Electronically signed by: Kael Bermudez MD 04/29/2025 09:14 AM EDT Dictated By: Kael Bermudez MD Signed By: <Electronically signed by Kael Bermudez MD in [place]> 04/29/25 0914 DD/ TD/TT: 04/29/25 0855 Drug And Alcohol Counselor: us [facility] IMG US PROCEDURES Edited Result - Final * Hemoglobin A1c (02/09/2025 8:39 AM EDT) Hemoglobin A1c 5.8 <6.0 % [facility] Comment:Hemoglobin A1C Refer ence Range Adults: 4.8 - 6.0 % Non diabetic: < 6.0 % Goal: < 7.0 %Additional Action Suggested: > 8.0 %Note: Hemoglobin A1c results are invalid for patients with abnormal amounts of HbF. Blood transfusions may impact the HbA1c concentration in the patient sample. Estimated Average Glucose 120 mg/dL [facility] Comment:eAG = Estimated ave rage glucose which is %A1C expressed asaverage glucose, using the formula of the V3P-IlcxujaMkvsyvr Glucose study (ADAG), Diabetes Care, Vol.31,#8,2007 Blood Venous blood specimen / Unknown 02/09/2025 8:39 AM EDT 02/09/2025 11:22 AM EDT Jos Poly ANP LAB BLOOD ORDERABLES Final Resul t Performing Organization Address [facility] de Phone Number [facility] [address] [place] [phone] * (ABNORMAL) Lipid Panel, Standard (02/09/2025 8:39 AM EDT) Triglycerides 217(H) <150 mg/dL [facility] Comment:Desirable Triglyceri de: less than 150 mg/dLBorderline High Triglyceride 150-199 mg/dLHigh Triglyceride: 200-499 mg/dLVery High Triglyceride: greater than or equal to 5OO mg/dL Cholesterol 206(H) <200 mg/dL [facility] Comment:Desirable Cholestero l: less than 200 mg/dLBorderline High Cholesterol: 200-239 mg/dLHigh Cholesterol: greater than 239 mg/dL LDL Cholesterol Calculated 99 <100 mg/dL [facility] Comment:Desirable LDL: less than 100 mg/dLNear Optimal/Above Optimal LDL: 110- 129 mg/dLBorderline High LDL: 130-159 mg/dLHigh LDL: 160-189 mg/dLVery High LDL: greater than or equal to 190 mg/dL HDL Cholesterol 64 >40 mg/dL [facility] Comment:Desirable HDL: great er than 40 mg/dL Note: This HDL assay may give artificially low results in patients with liver disease. Blood Venous blood specimen / Unknown 02/09/2025 8:39 AM EDT 02/09/2025 11:51 AM EDT us Jos Jung ANP LAB BLOOD ORDERABLES Final Resul t Performing Organization Address [facility] Co de Phone Number [facility] [address] [place] [phone] * Hepatitis C Antibody with Reflex to HCV, RNA, Quantitative, Real-Time PCR (10/21/2023 8:48 AM EDT) Hepatitis C Antibody Nonreactive Nonreactive [facility] Comment:Antibodies to HCV no t detected; does not exclude early acuteHCV infection. Blood Venous blood specimen / Unknown 10/21/2023 8:48 AM EDT 10/21/2023 11:06 AM EDT Gerson Key MD LAB BLOOD ORDERABLES Final Resul t Performing Organization Address City/[facility]/ZIP Co de Phone Number [facility] [address] [place] [phone] * HIV-1/2 Antigen and Antibodies, Fourth Generation, with Reflexes (10/21/2023 8:48 AM EDT) HIV AB/AG Nonreactive Nonreactive [facility] Comment:HIV-1 p24 Ag and/or HIV-1/HIV-2 Ab not detected.A test result that is nonreactive does not exclude thepossibility of exposure to or infection with HIV-1 and/orHIV-2. Nonreactive results in this assay for individualswith prior exposure to HIV-1 and/or HIV-2 may be due toantigen and antibody levels that are below the limit ofdetection of this assay.The [employer] HIV Ag/Ab Combo assay result andsupplemental assay results should be interpreted inconjunction with the patient's clinical presentation,history and other laboratory results. If the results areinconsistent with clinical evidence, additional testing issuggested to confirm the result. Blood Venous blood specimen / Unknown 10/21/2023 8:48 AM EDT 10/21/2023 11:06 AM EDT Gerson Key MD LAB BLOOD ORDERABLES Final Resul t Performing Organization Address City/[facility]/ZIP Co de Phone Number [facility] [address] [place] [phone] [phone] from Last 3 Months or Most Recently Relevant to Health Maintenance Insurance [address] [place], [place] [address]HEALTH C[facility] MEDICAID STAND ADULT Care Teams Forging Dies Final Finisher Relationship Specialty Start Date End Date Jos Jung ANP [address] [place] [phone] PCP - General Family Medicine 07/26/20
--- OUTSIDE RECORDS SUMMARY | 2025-07-06 15:47 | XMS_ITS | Encounter Summary ---
Author Organization [employer] Address [address] [place] [address] Care Team Providers Care Ceramics Artist Name Role Phone Gris Pang ASH Primary Care Provider [phone] Reason for Visit * Reason Comments Med Refill Encounter Details Date Type Department Care Team (Late st Contact Info) Description 11/04/[address] [facility] [address] [place] [phone] Fannie Norwood MD [address] [place] [address] Adhesive capsulitis of right shoulder Social History [...] Description 07/25/2025 3:00 PM EST Office Visit [facility] [address] [place] [address] Gris Pang ANP [address] [place] [address] documented as of this encounter Visit Diagnoses Diagnosis Adhesive capsulitis of right shoulder documented in this encounter Additional Health Concerns Assessment Noted Time PHQ-9 Depression Total Score: 0 11/02/19 23 9:31 AM EDT documented as of this encounter Care Teams Ceramics Artist Relationship Specialty Start Date End Date Gris Pang ANP [address] [place] [address] PCP - General Family Medicine 07/26/20 documented as of this encounter
--- OUTSIDE RECORDS SUMMARY | 2025-07-06 15:47 | XMS_ITS | Clinical Summary ---
Author Organization [employer] [facility] ity Address [address] [place] [address] Care Team Providers Care Electrical Engineering Professor Name Role Phone Unavailable Primary Care Provider Unavailabl e Social History Tobacco Use Types Packs/Day Years Used Date Smoking Tobacco: Never Assessed Sex and Gender Information Value Date Recorded Sex Assigned at Not on file Legal Sex Male 4:32 AM EST Gender Identity Not on file Sexual Orientation Not on file Plan of Treatment Health Maintenance Due Date Last Done Comments Colorectal Cancer Screening: Colonoscopy 1975 DTaP,Tdap,and Td Vaccines (1 - Tdap) 1996 Hepatitis B Vaccines (1 of 3 - 19+ 3-dose series) 1996 Cholesterol Screening (Lipid Panel) 04/05/2024 HIV Screening 04/05/2024 Hepatitis C Screening 04/05/2024 Social Influencers of Health Screening 04/05/2024 Depression Screening 08/11/2024 COVID-19 Vaccine ( - 2024-2 6 season) 2025 Influenza Vaccine (#1) 2025 RSV Immunization Adult Patie nts (1 - 1-dose 75+ series) 2052 HIB Vaccines Aged Out No longer eligi [...]
--- OUTSIDE RECORDS SUMMARY | 2025-07-06 15:47 | XMS_ITS | Encounter Summary ---
Author Organization [employer] Address [address] [facility] [address] [place] [address] Care Team Providers Care Emt Paramedic Name Role Phone Gris Pang Primary Care Provider [phone] Reason for Visit * Reason Comments Med Refill Encounter Details Date Type Department Care Team (Late st Contact Info) Description 02/22/2025 Refill [facility] [address] [place], [place] [phone] Gris Pang ANP [address] [place], [place] [phone] Social History Tobacco Use Types Packs/Day Years [...] Description 07/25/2025 3:00 PM EST Office Visit [facility] [address] [place] [phone] Gris Pang ANP [address] [place] [address] documented as of this encounter Visit Diagnoses Not on filedocumented in this encounter Additional Health Concerns Assessment Noted Time PHQ-9 Depression Total Score: 15 025 9:26 AM EST documented as of this encounter Care Teams Emt Paramedic Relationship Specialty Start Date End Date Gris Pang ANP [address] [place] [phone] PCP - General Family Medicine 07/26/20 documented as of this encounter
--- OUTSIDE RECORDS SUMMARY | 2025-07-06 15:47 | XMS_ITS | Encounter Summary ---
Author Organization [employer] [facility] Address [address] [place] [address] Care Team Providers Care Publication Editor Name Role Phone Gris Pang Primary Care Provider [phone] Encounter Details Date Type Department Care Team (Latest Contact Info) Description 12/11/2020 Abstract [facility] CONVERSIONS Dental, Provider, DDS Social History [...] Description 07/25/2025 3:00 PM EST Office Visit [facility] [address] [place] [address] Gris Pang ANP [address] [place] [address] documented as of this encounter Visit Diagnoses Not on filedocumented in this encounter Care Teams Publication Editor Relationship Specialty Start Date End Date Gris Pang ANP [address] [place] [address] PCP - General Family Medicine 07/26/20 documented as of this encounter
--- OUTSIDE RECORDS SUMMARY | 2025-07-06 15:47 | XMS_ITS | Encounter Summary ---
Author Organization [employer] Address [address] [facility] [address] [place] [address] Care Team Providers Care Plumbing Engineer Name Role Phone Poly Gris ALMEAN Primary Care Provider [phone] Reason for Visit * Reason Comments Med Refill Encounter Details Date Type Department Care Team ([facility] st Contact Info) Description 12/18/2023 Refill [facility] [address] [place], [place] [phone] Constantine Tilley MD [address] [place], [place] [phone] Social History Tobacco Use Types Packs/Day Years [...] Description 07/25/2025 3:00 PM EST Office Visit [facility] MEDICINE [address] [place] [address] Gris Pang ANP [address] [place] [address] documented as of this encounter Visit Diagnoses Not on filedocumented in this encounter Additional Health Concerns Assessment Noted Time PHQ-9 Depression Total Score: 24 024 11:43 AM EST documented as of this encounter Care Teams Plumbing Engineer Relationship Specialty Start Date End Date Gris Pang ANP [address] [place] [phone] PCP - General Family Medicine 07/26/20 documented as of this encounter
--- OUTSIDE RECORDS SUMMARY | 2025-07-06 15:47 | XMS_ITS | Encounter Summary ---
Author Organization [employer] Address [address] [place] [address] Care Team Providers Care Tongsman Name Role Phone Poly Gris ALEMAN Primary Care Provider [phone] Reason for Visit * Reason Comments Med Refill Encounter Details Date Type Department Care Team (Late st Contact Info) Description 12/22/2023 Refill [facility] [address] [place] [address] Rosalba Abdul FNP [address] [place] [address] Acute gout involving toe of right foot, [...] Description 07/25/2025 3:00 PM EST Office Visit [facility] MEDICINE [address] [place] [address] Gris Pang ANP [address] [place] [address] documented as of this encounter Visit Diagnoses Diagnosis Acute gout involving toe of right foot, unspecified cause documented in this encounter Additional Health Concerns Assessment Noted Time PHQ-9 Depression Total Score: 24 024 11:43 AM EST documented as of this encounter Care Teams Tongsman Relationship Specialty Start Date End Date Gris Pang ANP [address] [place] [id number] PCP - General Family Medicine 07/26/20 documented as of this encounter
== END 2025-07-06 13:23 | disposition home or self-care (01) ==
LOC: HO.HGI 12:46
PROVIDERS: PCP Nurse Practitioner Primary Care; Visit Provider Nurse Practitioner
DX: Z01.818 Encounter for other preprocedural examination (principal); Z12.11 Encounter for screening for malignant neoplasm of colon; F10.10 Alcohol abuse, uncomplicated
CPT/HCPCS: 99213

== ENCOUNTER → 2025-07-06 12:46 | Outpatient (BNVA) | payer MEDICAID, SELFPAY | PROVIDERS: PCP Nurse Practitioner Primary Care; Visit Provider Nurse Practitioner | DX: Z01.818 Encounter for other preprocedural examination (principal); F10.10 Alcohol abuse, uncomplicated | CPT/HCPCS: 99212 ==